=== PATIENT | male | born 1950 | race American Indian/Alaskan Native ===

== ENCOUNTER 2016-10-03 16:23 | Inpatient (IN) | payer OTHER ==
[2016-10-03] MEDS ORDERED: SODIUM CHLORIDE 1,000 ML IV SCH (16:45)
[2016-10-03 16:53] LABS: BASOPHIL 0.5 % (0-2.0); EOSINOPHIL 2.1 % (0-4.5); MCH 27.4 pg (25.7-33.7); MEAN CELL VOLUME 80.6 fl (80-96); MEAN PLT VOLUME 9.1 fl (7.5-11.1); PLATELET COUNT 258 K/MM3 (134-434); RDW 14.5 % (11.9-15.9); WHITE BLOOD COUNT 8.4 K/mm3 (4.0-10.0)
--- NOTE | 2016-10-03 16:53 | PDOC ---
History of Present Illness - History of Present Illness Initial Comments: 10/03/16 17:01 Patient is a 66 year old male with significant medical hx of past CVA (1996), bilateral carotid stenosis, HTN, HLD, and DM type II who is presenting to the ED with three days of left sided weakness, slurred speech and facial droop. The patient states that his symptoms began three days ago after he left the house in the morning. He complains of garbled speech with some mild weakness to his left upper and lower extremities. The patient states that his symptoms are similar to his last CVA. The patient takes baba ASA chronically; his last dose taken today. Patient is compliant with his medications. Social Hx: Current every day smoker. PMD: Geoff Camacho MD <Ariella Abad - Last Filed: 10/03/16 17:41> - General History Source: Patient, Family, Old Records Exam Limitations: No Limitations <Gage Hayes - Last Filed: 10/03/16 18:07> - General Chief Complaint: CVA/TIA Stated Complaint: CVA/TIA Time Seen by Provider: 10/03/16 16:30 Past History <Ariella Abad - Last Filed: 10/03/16 17:41> - Past Medical History CVA: Yes (1996 with mild left weakness) Diabetes: Yes (Type 2) HTN: Yes Hypercholesterolemia: Yes Other medical history: bilat carotid stenosis - Psycho/Social/Smoking Cessation Hx Anxiety: No Suicidal Ideation: No Smoking History: Current every day smoker Have you smoked in the past 12 months: Yes Number of Cigarettes Smoked Daily: 20 Information on smoking cessation initiated: Yes 'Breaking Loose' booklet given: 10/03/16 Hx Alcohol Use: No Drug/Substance Use Hx: No Substance Use Type: None <Gage Hayes - Last Filed: 10/03/16 18:07> - Past Medical History Allergies/Adverse Reactions: Allergies Allergy/AdvReac Type Severity Reaction Status Date / Time No Known Allergies Allergy Verified 10/03/16 16:31 Home Medications: Ambulatory Orders Aspirin [Maria Alejandra Chewable] 81 mg PO DAILY 10/03/16 Atorvastatin Ca [Lipitor] 40 mg PO HS 10/03/16 Fenofibrate Nanocrystallized [Fenofibrate] 145 mg PO HS 10/03/16 Losartan Potassium 50 mg PO DAILY 10/03/16 Metformin HCl [Glucophage] 1,000 mg PO BID 10/03/16 Metoprolol Succinate [Toprol Xl -] 25 mg PO DAILY 10/03/16 Nifedipine ER [Procardia Xl -] 30 mg PO DAILY 10/03/16 Review of Systems - Review of Systems Comments:: 10/03/16 17:02 GENERAL/CONSTITUTIONAL: No fever or chills. No weakness. HEAD, EYES, EARS, NOSE AND THROAT: No change in vision. No ear pain or discharge. No sore throat. CARDIOVASCULAR: No chest pain or shortness of breath. RESPIRATORY: No cough, wheezing, or hemoptysis. GASTROINTESTINAL: No nausea, vomiting, diarrhea or constipation. GENITOURINARY: No dysuria, frequency, or change in urination. MUSCULOSKELETAL: No joint or muscle swelling or pain. No neck or back pain. SKIN: No rash NEUROLOGIC: Slurred speech, left sided weakness. No headache, vertigo, or loss of consciousness. <Ariella Abad - Last Filed: 10/03/16 17:41> *Physical Exam - Vital Signs Last Vital Signs Temp Pulse Resp BP Pulse Ox 97.3 F L 73 18 171/101 100 10/03/16 16:31 10/03/16 16:31 10/03/16 16:31 10/03/16 16:31 10/03/16 16:38 - Physical Exam Comments: 10/03/16 17:02 GENERAL: Awake, alert, and fully oriented, in no acute distress HEAD: No signs of trauma EYES: PERRLA, EOMI, sclera anicteric, conjunctiva clear ENT: Auricles normal inspection, hearing grossly normal, nares patent, oropharynx clear without exudates. Moist mucosa NECK: Normal ROM, supple, no lymphadenopathy, JVD, or masses LUNGS: Breath sounds equal, clear to auscultation bilaterally. No wheezes, and no crackles HEART: Regular rate and rhythm, normal S1 and S2, no murmurs, rubs or gallops ABDOMEN: Soft, nontender, normoactive bowel sounds. No guarding, no rebound. No masses EXTREMITIES: Normal range of motion, no edema. No clubbing or cyanosis. No cords, erythema, or tenderness SKIN: Warm, Dry, normal turgor, no rashes or lesions noted. ENDOCRINE: No increased thirst. No abnormal weight change. HEMATOLOGIC/LYMPHATIC: No anemia, easy bleeding, or history of blood clots. ALLERGIC/IMMUNOLOGIC: No hives or skin allergy. <Ariella Abad - Last Filed: 10/03/16 17:41> - Vital Signs Last Vital Signs Temp Pulse Resp BP Pulse Ox 97.3 F L 73 18 171/101 100 10/03/16 16:31 10/03/16 16:31 10/03/16 16:31 10/03/16 16:31 10/03/16 16:38 - Physical Exam Comments: 10/03/16 16:47 NEURO: Left sided facial droop. +mild dysarthria. No tongue deviation 5/5 strength upper and lower extremities (though pt reports very subtled left upper and lower extremity weakness) No decreased sensation in extremities. No dysmetria. No abnormalities in heel to stone. <Gage Hayes - Last Filed: 10/03/16 18:07> NIH Stroke Scale - Last Known Well Date/Time & Onset Date Last Known Well: 09/30/16 - Initial Evaluation Level of consciousness: Alert Ask patient the month and their age: Answers both correctly Ask patient to open & close eyes; make fist and let go: Obeys both correctly Best gaze (horizontal eye movement): Normal Visual field testing: No visual field loss Facial paresis (Show teeth/raise eyebrows/close eyes tight): Partial paralysis ( total or near paralysis of lower face) Motor Function: Left Arm: Normal Motor Function: Right Arm: Normal (extends arm 90 (or 45) degrees for 10 seconds without drift Motor Function: Left Leg: Normal (extends leg 30 degrees for 5 seconds without drift) Motor Function: Right Leg: Normal (extends leg 30 degrees for 5 seconds without drift) Limb Ataxia: No ataxia Sensory(Use pinprick test arms,legs,trunk,face/side to side): Mild to moderate decrease in sensation Best language (Describe picture, name items, read sentences): No Aphasia Dysarthria (read several words): Mild to moderate slurring of words Extinction and Inattention: No abnormality - Total Score NIH Stroke Scale Score: 4 <Gage Hayes - Last Filed: 10/03/16 18:07> tPA Exclusion Checklist 0-3hr - Time Elapsed Date last known well: 09/30/16 - Thrombolytic Therapy Candidate Is the patient eligible for Thrombolytic Therapy?: No - Ineligibility reason(s) Reasons No tPA given: Outside of window - delayed arrival, See reason(s) noted above <Gage Hayes - Last Filed: 10/03/16 18:07> Heart Score/ECG Review #1 ECG reviewed & interpreted by me at: 16:35 10/03/16 16:46 NSR 76, incomplete RBBB, J point elevation V1-V3, no std/damaris, QTC 438 msec <Gage Hayes - Last Filed: 10/03/16 18:07> Critical Care Time/MDM Note - Medical Decision Making Note: 10/03/16 16:47 A portion of this note was written by my scribe, under my supervision. Vital Signs Temp Pulse Resp BP Pulse Ox 97.3 F L 73 18 171/101 100 10/03/16 16:31 03 16:31 10/03/16 16:31 10/03/16 16:31 10/03/16 16:38 66 year old male with past medical history of HTN, DM, HLD, CAD, prior stroke, bilateral carotid stenosis (reportedly 65% stenosis on R side, under evaluation by DR. Jordan Cherry) presents with left sided facial numbness, LUE, LUE (mild weakness) x 3 days. The patient noted 3 days ago that he was having left sided symptoms. Had some mild dysarthria. Denies chest pain, shortness of breath. Denies recent illnesses. Took two baby aspirin today. The patient clinically appears to have a stroke. He is outside the window given 3 days ago, and is ineligible for TPA. Will perform head CT and give aspirin and admit patient to the hospital for further evaluation. He will likely need a repeat carotid dopplers and will need a consultation by Dr. Cherry for potential intervention. 10/03/16 17:[address] reviewed. Subacute right frontal stroke. Pt had already take 2 baby aspirins. Will give him 2 more baby aspirins. CBC, BMP 10/03/16 16:37 10/03/16 16:37 CMP Sodium 140 mmol/L (136-145) 10/03/16 16:37 Potassium 3.8 mmol/L (3.5-5.1) 10/03/16 16:37 Chloride 104 mmol/L (98-107) 10/03/16 16:37 Carbon Dioxide 29 mmol/L (21-32) 10/03/16 16:37 Anion Gap 7 (8-16) L 10/03/16 16:37 BUN 9 mg/dL (7-18) 10/03/16 16:37 Creatinine 0.8 mg/dL (0.7-1.3) 10/03/16 16:37 Creat Clearance w eGFR > 60 (>60) 10/03/16 16:37 Random Glucose 153 mg/dL (74-106) H 10/03/16 16:37 Calcium 9.9 mg/dL (8.5-10.1) 10/03/16 16:37 Total Bilirubin 0.4 mg/dL (0.2-1.0) 10/03/16 16:37 AST 17 U/L (15-37) 10/03/16 16:37 ALT 40 U/L (12-78) 10/03/16 16:37 Alkaline Phosphatase 100 U/L (45-117) 10/03/16 16:37 Creatine Kinase 45 IU/L (39-308) 10/03/16 16:37 Troponin I < 0.02 ng/ml (0.00-0.05) 10/03/16 16:37 Total Protein 7.1 g/dl (6.4-8.2) 10/03/16 16:37 Albumin 3.6 g/dl (3.4-5.0) 10/03/16 16:37 Triglycerides 95 mg/dL (35-160) 10/03/16 16:37 Cholesterol 154 mg/dL (50-200) 10/03/16 16:37 Total LDL Cholesterol 94 mg/dL (5-100) 10/03/16 16:37 HDL Cholesterol 46 mg/dL (40-60) 10/03/16 16:37 Labs reviewed. Case discussed with DR. Welch (neurology). She recommends adding 150 mg plavix in addition. Will admit to stroke tele service. 10/03/16 18:[address] Morris. Agrees to admit under Dr. Camacho in stroke tele. <Gage Hayes - Last Filed: 10/03/16 18:07> Discharge Disposition <Ariella Abad - Last Filed: 10/03/16 17:41> - Discharge Dispostion Admit: Yes <Gage Hayes - Last Filed: 10/03/16 18:07> - Diagnosis Cerebrovascular accident (CVA) Qualifiers: CVA mechanism: unspecified Qualified Code(s): I63.9 - Cerebral infarction, unspecified - Discharge Dispostion Condition at time of disposition: Stable - Referrals Referrals: Geoff Camacho MD [Primary Care Provider] - *DC/Admit/Observation/Transfer <Ariella Abad - Last Filed: 10/03/16 17:41> <Gage Hayes - Last Filed: 10/03/16 18:07> Diagnosis at time of Disposition: Cerebrovascular accident (CVA) Qualifiers: CVA mechanism: unspecified Qualified Code(s): I63.9 - Cerebral infarction, unspecified - Referrals Referrals: Geoff Camacho MD [Primary Care Provider] - Attestations - Attestations 10/03/16 17:04 Documentation prepared by Ariella Abad, acting as medical superintendent for Gage Hayes MD. <Ariella Abad - Last Filed: 10/03/16 17:41> ED Treatment Course - LABORATORY CBC & Chemistry Diagram: 10/03/16 16:37 10/03/16 16:37 - ADDITIONAL ORDERS Additional order review: Laboratory Results 10/03/16 10/03/16 16:37 16:37 INR 1.10 Sodium 140 Potassium 3.8 Chloride 104 Carbon Dioxide 29 Anion Gap 7 L BUN 9 Creatinine 0.8 Creat Clearance w eGFR > 60 Random Glucose 153 H Calcium 9.9 Total Bilirubin 0.4 AST 17 ALT 40 Alkaline Phosphatase 100 Creatine Kinase 45 Troponin I < 0.02 Total Protein 7.1 Albumin 3.6 Triglycerides 95 Cholesterol 154 Total LDL Cholesterol 94 HDL Cholesterol 46 10/03/16 16:37 RBC 5.88 H MCV 80.6 MCHC 34.0 RDW 14.5 MPV 9.1 Neutrophils % 60.0 Lymphocytes % 30.9 Monocytes % 6.5 Eosinophils % 2.1 Basophils % 0.5 - RADIOLOGY Radiograph Interpretation: 10/03/16 17:[address] Impression: No intracranial hemorrhage is seen. A 0.5 cm right frontal subcortical infarct is noted which is probably subacute or chronic. Punctate chronic bilateral basal ganglia infarcts are seen. 0.5 cm chronic right temporal periventricular infarct. Reported By: Alirio Cole MD - Medications Given in the ED: ED Medications Discontinued Medications Generic Name Dose Route Start Last Admin Trade Name Bryn PRN Reason Stop Dose Admin Aspirin 162 mg 10/03/16 17:18 10/03/16 17:21 Asa - PO 10/03/16 17:19 162 mg ONCE ONE Administration Clopidogrel Bisulfate 150 mg 10/03/16 17:27 10/03/16 17:34 Plavix - PO 10/03/16 17:28 150 mg ONCE ONE Administration Sodium Chloride 1,000 mls @ 42 mls/hr 10/03/16 16:45 10/03/16 17:16 Normal Saline - IV 42 mls/hr ASDIR SAGAR Administration <Ariella Abad - Last Filed: 10/03/16 17:41> - LABORATORY CBC & Chemistry Diagram: 10/03/16 16:37 10/03/16 16:37 <Gage Hayes - Last Filed: 10/03/16 18:07>
[2016-10-03 17:08] LABS: INR 1.1 (0.82-1.09); PROTHROMBIN TIME (PATIENT) 12.1 SEC (9.98-11.88)
[2016-10-03] MEDS ORDERED: ASPIRIN 81 MG CHEWABLE TABLETS PO ONE (17:18)
[2016-10-03 17:19] LABS: ALBUMIN 3.6 g/dl (3.4-5.0); ANION GAP 7 (8-16); BILIRUBIN,TOTAL 0.4 mg/dL (0.2-1.0); CALCIUM 9.9 mg/dL (8.5-10.1); CHOLESTEROL 154 mg/dL (50-200); CO2 29 mmol/L (21-32); CREATININE 0.8 mg/dL (0.7-1.3); GLUCOSE,RANDOM 153 mg/dL (74-106); LDL CHOLESTEROL (ONLY SJRH) 94 mg/dL (5-100); SGOT/AST 17 U/L (15-37); SGPT/ALT 40 U/L (12-78); TOT PROT 7.1 g/dl (6.4-8.2)
[2016-10-03 17:20] LABS: ALK PHOS 100 U/L (45-117); TROPONIN I < 0.02 ng/ml (0.00-0.05)
[2016-10-03] MEDS ORDERED: CLOPIDOGREL BISULFATE 75 MG TABLET (FP) PO ONE (17:27)
[2016-10-03] MEDS ORDERED: CLOPIDOGREL BISULFATE 75 MG TABLET (FP) ONE (17:31)
[2016-10-03] MEDS ORDERED: ASPIRIN 81 MG CHEWABLE TABLETS ONE (17:31)
[2016-10-03] MEDS: INSULIN SLIDING SCALE (NOVOLOG) 1 VIAL SQ SCH (21:01)
[2016-10-03] MEDS: FENOFIBRIC ACID 135 MG CAP PO SCH (21:12)
[2016-10-03] MEDS: NIFEdipine E.R. 30 MG TABLET (FP) PO SCH (21:14)
[2016-10-03] MEDS: NICOTINE 21 MG/24 HOURS TOPICAL PATCH TD SCH (21:45)
[2016-10-03 21:56] LABS: TROPONIN I < 0.02 ng/ml (0.00-0.05)
[2016-10-03] MEDS ORDERED: ATORVASTATIN CA 40 MG TABLET (FP) PO SCH (22:00)
[2016-10-03] MEDS ORDERED: PATIENT'S OWN MEDICATION (NON-FORMULARY) (Fenofibrate Nanocrystallized [Fenofibrate] 145 M PO SCH (22:00)
[2016-10-03 23:13] VITALS: BMI 24.4
[2016-10-04 03:22] LABS: URINE APPEARANCE CLEAR; URINE BILIRUBIN NEGATIVE (NEGATIVE); URINE BLOOD NEGATIVE (NEGATIVE); URINE COLOR LTYELLOW; URINE GLUCOSE (UA) NEGATIVE (NEGATIVE); URINE KETONE NEGATIVE (NEGATIVE); URINE LEUK ESTERASE NEGATIVE (NEGATIVE); URINE NITRITE NEGATIVE (NEGATIVE); URINE PROTEIN NEGATIVE (NEGATIVE); URINE UROBILINOGEN NEGATIVE E.U./dl (0.2-1.0)
[2016-10-04 04:24] LABS: TROPONIN I < 0.02 ng/ml (0.00-0.05)
[2016-10-04] MEDS ORDERED: ACETAMINOPHEN 325 MG TABLET (FP) PO PRN (05:51)
[2016-10-04] MEDS: INSULIN SLIDING SCALE (NOVOLOG) 1 VIAL SQ SCH ×4 (06:03→22:16)
[2016-10-04] MEDS: metFORMIN HCL 500 MG TABLET (FP) PO SCH ×2 (06:04→15:55)
[2016-10-04 08:03] LABS: BASOPHIL 0.6 % (0-2.0); EOSINOPHIL 2.1 % (0-4.5); MCH 27.3 pg (25.7-33.7); MCHC 33.4 g/dl (32.0-35.9); MEAN CELL VOLUME 81.7 fl (80-96); MEAN PLT VOLUME 9.2 fl (7.5-11.1); NEUTROPHILS 65.7 % (42.8-82.8); PLATELET COUNT 209 K/MM3 (134-434); RDW 14.6 % (11.9-15.9); WHITE BLOOD COUNT 8.3 K/mm3 (4.0-10.0)
[2016-10-04 08:49] LABS: SGPT/ALT 50 U/L (12-78)
[2016-10-04 08:51] LABS: ALBUMIN 3.5 g/dl (3.4-5.0); ANION GAP 10 (8-16); CALCIUM 9.3 mg/dL (8.5-10.1); CO2 27 mmol/L (21-32); CREATININE 0.7 mg/dL (0.7-1.3); GLUCOSE,RANDOM 158 mg/dL (74-106); SGOT/AST 28 U/L (15-37)
[2016-10-04 09:02] LABS: ALK PHOS 94 U/L (45-117); BILIRUBIN,TOTAL 0.5 mg/dL (0.2-1.0); THYROID STIMULATING HORMONE 2.13 uIU/ml (0.358-3.74); TOT PROT 6.6 g/dl (6.4-8.2)
--- NOTE | 2016-10-04 09:41 | EKG ---
Test Reason : Blood Pressure : / mmHG Vent. Rate : 076 BPM Atrial Rate : 076 BPM P-R Int : 156 ms QRS Dur : 100 ms QT Int : 390 ms P-R-T Axes : 064 020 052 degrees QTc Int : 438 ms NORMAL SINUS RHYTHM POSSIBLE LEFT ATRIAL ENLARGEMENT INCOMPLETE RIGHT BUNDLE BRANCH BLOCK NO PREVIOUS ECGS AVAILABLE Confirmed by KIZZY BROCK MD ([id number]) on 10/04/2016 9:41:20 AM Referred By: Confirmed By:KIZZY BROCK MD
[2016-10-04] MEDS ORDERED: NIFEdipine E.R. 30 MG TABLET (FP) PO SCH (10:00)
[2016-10-04] MEDS ORDERED: LOSARTAN POTASSIUM 50 MG TABLET (FP) PO SCH ×2 (10:00→15:25)
[2016-10-04] MEDS ORDERED: METOPROLOL SUCCINATE 25 MG TAB.SR.24H (FP) PO SCH (10:00)
[2016-10-04] MEDS ORDERED: ASPIRIN 81 MG CHEWABLE TABLETS PO SCH (10:00)
--- NOTE | 2016-10-04 10:18 | CONSULT ---
Admitting History and Physical - Primary Care Physician PCP: Geoff Camacho - Admission History of Present Illness: Per EMR: "Initial Comments: 10/03/16 17:01 Patient is a 66 year old male with significant medical hx of past CVA (1996), bilateral carotid stenosis, HTN, HLD, and DM type II who is presenting to the ED with three days of left sided weakness, slurred speech and facial droop. The patient states that his symptoms began three days ago after he left the house in the morning. He complains of garbled speech with some mild weakness to his left upper and lower extremities. The patient states that his symptoms are similar to his last CVA. The patient takes baba ASA chronically; his last dose taken today. Patient is compliant with his medications. " Passed dysphagia screen x 2. Reg diet/thin liquid ordered. 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 Other Social History: h/o CVA x 20 yrs ago, with left [id number] with excellent recovery with rehabilitation History - Admission Reason For Visit: CEREBRAL VASCULAR ACCIDENT - Diagnostics X-ray: Report Reviewed CT Scan: Report Reviewed (right frontal subcortical infarct) MRI: Report Reviewed - General Mental Status: Alert and Oriented, Awake and Alert, Able to Follow Commands Attention: Intact Ability to Follow Directions: Excellent Head/Neck Control: WFL - Hearing Hearing: Functional Hearing: Impaired, Both Hearing Aide: No (reports decreased hearing) Speech Evaluation - Communication Primary Language: CHINESE Secondary Language: HAITIAN (fluent) Communication: Yes: Dysarthria (Mild) - Speech Production Dysarthria: Yes: Flaccid Able to Make Needs Known: Yes: WNL Intelligibility: Yes: Mildly Impaired - Speech Characteristics Voice Loudness: Normal Voice Pitch: Yes: Normal Voice Phonatory-based Quality: Yes: Normal Speech Pattern: Impaired Speech Clarity: < 100% Nasal Resonance: Normal Articulation: Yes: Imprecise Rate of Speech: Too Slow - Language/Auditory Comprehension Follows: Yes: 2 Stage Simple Commands Observation: Able to respond to yes/no queries: Yes, Yes/No Confusion: No, Comprehends Conversational Speech: Yes, Benefits from Increased Volume of Speech : Yes - Language/Verbal Expression Able to Respond to Simple Queries: Yes: WNL Able to Communicate Wants and Needs: Yes: WNL Functional Communication Status: Yes: WNL - Memory/Perception retirement Memory: Yes: WNL Short Term Memory: Yes: WNL - Swallow Evaluation/Bedside Assessment Current Nutritional Intake: Regular, Thin Liquids Oral Secretions: Yes: WFL Dentition: Yes: Adequate, Missing Teeth Facial Symmetry at Rest: Facial Droop Left Facial Symmetry on Retraction: Facial Droop Left Sensation: Normal Jaw Position: Closed at Rest Against Resistance Opening: Normal Against Resistance Closing: Normal Pucker Lips: Droops Left Smile: Droops Left Lingual Movement: Symmetric Lingual Speed of Movement: Reduced Lingual Movement Strgth Against Opposition: Reduced Velopharyngeal Movement: Normal Laryngeal Elevation: Impaired Laryngeal Movement: Reduced Excursion, Labored,delay initiation, Reduced Velocity Rate of Intake: WFL Bolus Size: WFL Labial Seal: WFL Chewing: WFL Oral Prep Time: WFL A-P Transit: WFL Pocketing: None Timing of Swallow: Delayed Coughing/Throat Clear: No Change in Voice: No Recommendations - Speech Evaluation, Impression/Plan Impression: Right CVA with left sided hemiparesis, left facial, mild flaccid dysarthria with fair (+) to good (-) intelligibilty. Cognition grossly intact. Swallowing is functional, however, laryngeal swallow is mildly reduced in rate of onset, rate of ellevation and depression, and excursion. One instance of brief cough noted. Risk of aspiration and pharyngeal stasis. - Dysphagia Impressions/Plan *Silent aspiration: cannot be R/O at bedside Dysphagia Treatment Plan: Labial Exercises, Swallowing Exercises, Chin Tuck/Down , Safe Rate, OOB for meals, OOB for 1 h. after meals, Other (Pt educated on signs of dysphagia and asked to report any cough, congestion,to nursing/MD.) Recommendations: Modified Barium Swallow (if signs of aspiration reported or observed.) - Recommendations Diet Consistency: Regular Medication Administration: Whole with water Liquids: Thin Liquids
[2016-10-04] MEDS: NICOTINE 21 MG/24 HOURS TOPICAL PATCH TD SCH (10:42)
--- NOTE | 2016-10-04 11:58 | HP ---
Admitting History and Physical - Primary Care Physician PCP: Geoff Camacho - Admission Chief Complaint: ACUTE CVA History of Present Illness: 66 Y/O MALE WELL KNOWN TO OUR SERVICE, HISTORY OF CAROTID ATHEROSCLEROSIS WITH GREATER THAN 70% STENOSIS IN THE PAST YEAR STARTED ON AGGRESSIVE LIPID AND HYPERTENSION CONTROL AT OUR OFFICE. HOWEVER, PATIENT CONTINUES TO SMOKE CIGARETTES APPROX 2 PK A DAY AND HAS NOT SLOWED DOWN . WE HAVE OFFERED SMOKING CESSATION AID WITH PATCHES AND CHANTIX/ZYBAN BUT HAS REFUSED. HERE WITH MS CHANGE AND SLURRED SPEECH. 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 Home Medications - Allergies Allergies/Adverse Reactions: Allergies Allergy/AdvReac Type Severity Reaction Status Date / Time No Known Allergies Allergy Verified 10/03/16 16:31 - Home Medications Home Medications: Ambulatory Orders Aspirin [Maria Alejandra Chewable] 81 mg PO DAILY 10/03/16 Atorvastatin Ca [Lipitor] 40 mg PO HS 10/03/16 Fenofibrate Nanocrystallized [Fenofibrate] 145 mg PO HS 10/03/16 Losartan Potassium 50 mg PO DAILY 10/03/16 Metformin HCl [Glucophage] 1,000 mg PO BID 10/03/16 Metoprolol Succinate [Toprol Xl -] 25 mg PO DAILY 10/03/16 Nifedipine ER [Procardia Xl -] 30 mg PO HS 10/03/16 Review of Systems - Review of Systems Constitutional: reports: Lethargy Eyes: reports: No Symptoms HENT: reports: No Symptoms Neck: reports: No Symptoms Cardiovascular: reports: No Symptoms Respiratory: reports: No Symptoms Gastrointestinal: reports: No Symptoms Genitourinary: reports: No Symptoms Musculoskeletal: reports: Muscle Weakness Integumentary: reports: No Symptoms Endocrine: reports: Other (SLURRED SPEECH) Hematology/Lymphatic: reports: No Symptoms Psychiatric: reports: No Symptoms Physical Examination Vital Signs: Vital Signs Temperature 98.4 F 10/04/16 10:35 Pulse Rate 95 H 10/04/16 10:35 Respiratory Rate 18 03/17/17 10:35 Blood Pressure 155/79 03/17/17 10:35 O2 Sat by Pulse Oximetry (%) 97 10/04/16 10:00 Constitutional: Yes: Mild Distress Eyes: Yes: WNL HENT: Yes: WNL, Other (SLURRED SPEECH RESOLVED) Neck: Yes: WNL Cardiovascular: Yes: WNL Respiratory: Yes: WNL Gastrointestinal: Yes: WNL Renal/: Yes: WNL Musculoskeletal: Yes: WNL Extremities: Yes: WNL Edema: No Peripheral Pulses WNL: Yes Integumentary: Yes: WNL Wound/Incision: Yes: Clean/Dry Neurological: Yes: WNL ...Motor Strength: WNL Psychiatric: Yes: WNL Labs: CBC, BMP 10/04/16 05:35 10/04/16 05:35 Imaging - Results MRI: Report Reviewed Problem List - Problems (1) Cerebrovascular accident (CVA) Assessment/Plan: ACUTE VS SUBACUTE Code(s): I63.9 - CEREBRAL INFARCTION, UNSPECIFIED Qualifiers: CVA mechanism: unspecified Qualified Code(s): I63.9 - Cerebral infarction, unspecified (2) Cigarette smoker Code(s): F17.210 - NICOTINE DEPENDENCE, CIGARETTES, UNCOMPLICATED (3) Lipidemia Code(s): E78.5 - HYPERLIPIDEMIA, UNSPECIFIED Qualifiers: Hyperlipidemia type: mixed hyperlipidemia Qualified Code(s): E78.2 - Mixed hyperlipidemia (4) Essential hypertension Code(s): I10 - ESSENTIAL (PRIMARY) HYPERTENSION (5) Diabetes mellitus Code(s): E11.9 - TYPE 2 DIABETES MELLITUS WITHOUT COMPLICATIONS Qualifiers: Diabetes mellitus complication status: with circulatory complication Assessment/Plan NEUROCHECKS NEUROLOGY AND CARDIOLOGY WORKUP PT EVAL OOB TO CHAIR WITH ASSIST TOBACCO CESSATION BP CONTROL
--- NOTE | 2016-10-04 13:09 | CON.NEURO ---
Consult Consult Specialty:: NEUROLOGY Reason for Consultation:: left side weakness, dysarthria - History of Present Illness History of Present Illness: 66 year old male, RH , heavy smoker ( 2 packs/day) with significant medical hx of past CVA (1996), bilateral carotid stenosis, HTN, HLD, and DM type II , on aspirin daily was admitted yesterday for three days of left sided weakness, slurred speech and facial droop. The patient states that his symptoms began three days ago after he left the house in the morning. He complains of garbled speech with some mild weakness to his left upper and lower extremities. The patient states that his symptoms are similar to his last CVA. The patient takes baba ASA chronically; his last dose taken today. 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 Home Medications - Allergies Allergies/Adverse Reactions: Allergies Allergy/AdvReac Type Severity Reaction Status Date / Time No Known Allergies Allergy Verified 10/03/16 16:31 - Home Medications Home Medications: Ambulatory Orders Aspirin [Maria Alejandra Chewable] 81 mg PO DAILY 10/03/16 Atorvastatin Ca [Lipitor] 40 mg PO HS 10/03/16 Fenofibrate Nanocrystallized [Fenofibrate] 145 mg PO HS 10/03/16 Losartan Potassium 50 mg PO DAILY 10/03/16 Metformin HCl [Glucophage] 1,000 mg PO BID 10/03/16 Metoprolol Succinate [Toprol Xl -] 25 mg PO DAILY 10/03/16 Nifedipine ER [Procardia Xl -] 30 mg PO HS 10/03/16 Review of Systems - Review of Systems Constitutional: reports: No Symptoms Eyes: reports: No Symptoms HENT: reports: No Symptoms Neck: reports: No Symptoms Cardiovascular: reports: No Symptoms Respiratory: reports: No Symptoms Gastrointestinal: reports: No Symptoms Genitourinary: reports: No Symptoms Breasts: reports: No Symptoms Reported Musculoskeletal: reports: No Symptoms Integumentary: reports: No Symptoms Neurological: reports: No Symptoms Endocrine: reports: No Symptoms Hematology/Lymphatic: reports: No Symptoms Psychiatric: reports: No Symptoms Physical Exam-Neuro Vital Signs: Vital Signs Temperature 98.4 F 10/04/16 10:35 Pulse Rate 95 H 10/04/16 10:35 Respiratory Rate 18 10/04/16 10:35 Blood Pressure 155/79 10/04/16 10:35 O2 Sat by Pulse Oximetry (%) 97 10/04/16 10:00 Constitutional: Yes: No Distress, Calm Neck: Yes: Supple, Trachea Midline Cardiovascular: Yes: Regular Rate and Rhythm, S1, S2 Respiratory: Yes: Regular, CTA Bilaterally Gastrointestinal: Yes: Normal Bowel Sounds, Soft Renal/: Yes: WNL Musculoskeletal: Yes: WNL Edema: No Psychiatric: Yes: Alert, Oriented Labs: CBC, BMP 10/04/16 05:35 10/04/16 05:35 INR, PTT INR 1.10 (0.82-1.09) 10/03/16 16:37 - Neuro Exam Level Of Consciousness: Yes: Oriented to Person, Oriented to Place, Oriented to Time Eyes: Yes: PERRLA Speech: Slurred Dominant Hand: Right Cranial Nerves II-XII Intact: No (right facial droop) Gag: Present DTR's: 1+ Left Bicep, 1+ Right Bicep, 1+ Left Tricep, 1+ Right Tricep, 1+ Left Brachioradialis, 1+ Right Brachioradialis, 1+ Left Achilles, 1+ Right Achilles Babinski: Absent Response to light touch: Normal Response to pain prick: Normal Response to temperature: Normal Response to vibration: Normal Coordination: Normal: Finger to Nose (LUE ataxia) Motor Strength: 5/5: Left Arm, Right Arm, Left Leg, Right Leg Gait: Deferred NIH Stroke Scale - Last Known Well Date/Time & Onset Symptom Onset Date: 09/30/16 Symptom Onset Time: 09:00 Date Last Known Well: 09/29/16 Time Last Known Well: 17:00 - Initial Evaluation Level of consciousness: Alert Ask patient the month & their age: Answers Both Correctly Ask Patient to open & close eyes; make fist and let go.: Obeys Both Correctly Best gaze (horizontal eye movement): Normal Visual Field Testing: No Visual Loss Facial Palsy(Show teeth or raise eyebrows & close eyes: Minor Paralysis ( Flattened nasolabial fold, asymmetry on smiling). Motor Function - Left Arm: No Drift;extends limb 90 (or siting 45) degress & hold full 10 seconds Motor Function - Right Arm: No Drift;extends limb 90 (or siting 45) degress & hold full 10 seconds Motor Function - Left Leg: No Drift; leg holds 30 degree position for full 5 seconds. Motor Function - Right Leg: No Drift; leg holds 30 degree position for full 5 seconds. Limb Ataxia: Present in one limb Sensory (arms, legs, trunk, face): Normal; no sensory loss Best Language: No Aphasia; normal Dysarthria/Articulation: Mild to moderate dysarthria;slurs some words/ understood w/difficulty Extinction and Inattention: No abnormality - Total Score NIH Stroke Scale Score: 3 Imaging - Results Cat Scan: Report Reviewed, Image Reviewed Ultrasound: Report Reviewed, Image Reviewed MRI: Report Reviewed, Image Reviewed Problem List - Problems (1) Cerebrovascular accident (CVA) Code(s): I63.9 - CEREBRAL INFARCTION, UNSPECIFIED Qualifiers: CVA mechanism: unspecified Qualified Code(s): I63.9 - Cerebral infarction, unspecified (2) 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 The patient states that his symptoms began three days ago after he left the house in the morning. He complains of garbled speech with some mild weakness to his left upper and lower extremities. The patient states that his symptoms are similar to his last CVA. The patient takes baba ASA chronically; his last dose taken today. LSN Friday night. The patient is not a candidate for ivtpa as he presented three days after the symptoms started. He is out of the window for ivtpa. MRI brain shows small lacunar right basal ganglia stroke. sinusitis frontal, maxillary, ethmoidal on MRI brain. Impression: subacute ischemic lacunar stroke on aspirin. seems small vessel stroke . NIHS is 3p 1p dysarthria, 1p right facial droop, 1p LUE ataxia. Plan: - add Plavix 75mg. po daily to the aspirin 325mg. po daily. Gave yesterday 150mg. Plavix po in ED. increase statin to 80mg. po daily, keep blood pressure< 130mmHg. - control diabetes - smoke cessation counseling- patient is a heavy smoker 2packs per day- nicotine patch q24h. 21mg. - stroke work up : echocardiogram, CTA neck, lipids, HbA1C, TSH, Holter 48h. - PT/OT/ST - DVT prophylaxis. - start augmentin 875/125mg. po bid for seven days for sinusitis seen on MRI brain. Thank you for this consult . will follow.
--- NOTE | 2016-10-04 15:12 | CONSULT ---
Consult Consult Specialty:: Cardiology Reason for Consultation:: Dr Camacho - History of Present Illness Chief Complaint: Left-sided weakness, left facial droop and slurred speech. History of Present Illness: 66 yo male, daily smoker, with hx HTN, HLD, DM X 3 yrs, past CVA (1996) -> remaining mild left sided weakness, bilateral carotid stenosis (50-69% on right and 1-49% on left in 05/05), here with three days of left sided weakness, slurred speech and facial droop. The patient states that his symptoms began three days prior to presentation -. first numbness/tingling in left fingers -. worsened. He thought he would wait until next week to go to the doctors. However, his family made him He denies hx of CAD, CHF, CP syndrome. He denies CP< SOB, palpitations or dizziness. MRI showed sub-acute right lacunar infarct in wagner radiata and old right pontine CVA He now feels better, but droop persists His family (and pt admits) says he doesn't like anything healthy. 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 Home Medications - Allergies Allergies/Adverse Reactions: Allergies Allergy/AdvReac Type Severity Reaction Status Date / Time No Known Allergies Allergy Verified 10/03/16 16:31 - Home Medications Home Medications: Ambulatory Orders Aspirin [Maria Alejandra Chewable] 81 mg PO DAILY 10/03/16 Atorvastatin Ca [Lipitor] 40 mg PO HS 10/03/16 Fenofibrate Nanocrystallized [Fenofibrate] 145 mg PO HS 10/03/16 Losartan Potassium 50 mg PO DAILY 10/03/16 Metformin HCl [Glucophage] 1,000 mg PO BID 10/03/16 Metoprolol Succinate [Toprol Xl -] 25 mg PO DAILY 10/03/16 Nifedipine ER [Procardia Xl -] 30 mg PO HS 10/03/16 Family Disease History - Family Disease History Family History: Denies (premature CAD) Other Family History: has 3 daughters, one son, 5 grandchildren. Is one of 9 children Review of Systems - Review of Systems Constitutional: reports: No Symptoms Eyes: reports: No Symptoms HENT: reports: No Symptoms Neck: reports: No Symptoms Cardiovascular: reports: No Symptoms Respiratory: reports: No Symptoms Gastrointestinal: reports: No Symptoms Genitourinary: reports: No Symptoms Musculoskeletal: reports: Muscle Weakness (on left, mild) Neurological: reports: Change in Speech, Numbness, Weakness (on left), Other ( left droop) Hematology/Lymphatic: reports: No Symptoms Psychiatric: reports: No Symptoms Physical Exam Vital Signs: Vital Signs Temperature 98.5 F 10/04/16 14:00 Pulse Rate 85 10/04/16 14:00 Respiratory Rate 20 10/04/16 14:00 Blood Pressure 153/79 10/04/16 14:00 O2 Sat by Pulse Oximetry (%) 97 10/04/16 10:00 Constitutional: Yes: No Distress Eyes: Yes: Conjunctiva Clear HENT: Yes: Atraumatic Neck: Yes: Supple Cardiovascular: Yes: Regular Rate and Rhythm. No: Murmur Respiratory: Yes: CTA Bilaterally Gastrointestinal: Yes: Normal Bowel Sounds, Soft. No: Tenderness Extremities: Yes: Other (warm) Edema: No Peripheral Pulses WNL: Yes (but diminished) Neurological: Yes: Alert, Oriented Psychiatric: Yes: Alert, Oriented Labs: CBC, BMP 10/04/16 05:35 10/04/16 05:35 Imaging - Results Chest X-ray: Report Reviewed, Image Reviewed EKG: Report Reviewed, Image Reviewed (SR , LAE. Inc RBBB, NSST-T cahnges ( repeat is unchanged)) Other: Other (tele -. SR , PVCs Echo (10/04/16) -. nl LV size with EF 65%, grade 1 DD, Milc conc LVH, trace MR, mild TR) Assessment/Plan 66 yo male with the above history, here with left weakness/droop/slurred speech -> found with subacute right lacunar wagner radiata infarct on MRI Neck MRA showed non-obstructive lesion on left and about 45% oin right prox ICA. Pt with known carotid disease LDL suboptimal at 94 No evidence of ACS or CHF No arrhythmia on tele, except fro PVCs Echo -. normal EF, mild DD, and insignificant valvular dz BP was 171/103 on admission -. better now but still suboptiomal (per neuro, ok to drop to < 130) TSH nl DM uncontrolled -. A1C 8.1 Rec: Increase toprol to 50/d and losartan to 100/d Cont nidfedipine Follow BP and adjust meds further prn Increase atorvastatin to 80/d as recommended by neuro DM management per Dr Camacho I had a long discussion with pt in presence of family (, 3 daughters, sister , etc) about complete smoking cessation, diet and exercise. He seems committed at this time Thanks! We'll follow!
[2016-10-04] MEDS ORDERED: ATORVASTATIN CA 80 MG TABLET (FP) PO SCH (15:25)
[2016-10-04] MEDS ORDERED: METOPROLOL SUCCINATE 25 MG TAB.SR.24H (FP) PO ONE (15:26)
[2016-10-04] MEDS ORDERED: METOPROLOL SUCCINATE 50 MG TAB.SR.24H (FP) PO SCH (15:26)
[2016-10-04] MEDS ORDERED: LOSARTAN POTASSIUM 50 MG TABLET (FP) PO ONE (15:27)
--- NOTE | 2016-10-04 16:52 | PN ---
Progress Note (short form) - Note Progress Note: Vascular Surgery Pt seen and examined with family at bedside. Left sided weakness much better. Good strength, FROM x 4 CTA reviewed -- 45% stenosis right ICA Medical management for stroke. No need for surgery Advised smoking cessation. Jordan tracy DO
[2016-10-04] MEDS: AMOX TR/POT CLAV 875MG/125MG TABLETS (FP) PO SCH (17:22)
[2016-10-04] MEDS: FENOFIBRIC ACID 135 MG CAP PO SCH (22:19)
[2016-10-04] MEDS: NIFEdipine E.R. 30 MG TABLET (FP) PO SCH (22:20)
[2016-10-05 06:09] VITALS: BP 145/64; PULSE 70; TEMP 97.9
[2016-10-05] MEDS: INSULIN SLIDING SCALE (NOVOLOG) 1 VIAL SQ SCH ×2 (06:14→12:08)
[2016-10-05] MEDS: metFORMIN HCL 500 MG TABLET (FP) PO SCH (06:14)
[2016-10-05] MEDS ORDERED: sitaGLIPtin PHOSPHATE 25 MG TABLET (FP) PO SCH (07:00)
[2016-10-05] MEDS: NICOTINE 21 MG/24 HOURS TOPICAL PATCH TD SCH (09:04)
[2016-10-05] MEDS: AMOX TR/POT CLAV 875MG/125MG TABLETS (FP) PO SCH (09:05)
--- NOTE | 2016-10-05 10:01 | DS ---
Physical Examination Vital Signs: Vital Signs Temperature 97.9 F 10/05/16 06:08 Pulse Rate 70 10/05/16 06:08 Respiratory Rate 16 10/05/16 06:08 Blood Pressure 145/64 10/05/16 06:08 O2 Sat by Pulse Oximetry (%) 97 10/04/16 21:00 Findings/Remarks: FEELS BETTER WANTS TO GO HOME Cardiovascular: Yes: Regular Rate and Rhythm Respiratory: Yes: Regular, CTA Bilaterally Gastrointestinal: Yes: Normal Bowel Sounds, Soft Edema: No Neurological: Yes: Alert, Oriented, Weakness (MINIMAL LEFT), Other (GAIT STEADY) Labs: CBC, BMP 10/04/16 05:35 10/04/16 05:35 Discharge Summary Reason For Visit: CEREBRAL VASCULAR ACCIDENT Current Active Problems Cerebrovascular accident (CVA) (Acute) Cigarette smoker (Acute) Diabetes mellitus (Acute) 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 The patient states that his symptoms began three days prior to presentation -. first numbness/tingling in left fingers -. worsened. He thought he would wait until next week to go to the doctors. However, his family made him He denies hx of CAD, CHF, CP syndrome. He denies CP< SOB, palpitations or dizziness. MRI showed sub-acute right lacunar infarct in wagner radiata and old right pontine CVA He now feels better, but droop persists His family (and pt admits) says he doesn't like anything healthy. 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) Cardio/Vascular: Yes: HTN, Hyperlipdemia Endocrine: Yes: Diabetes Mellitus (for 3 yrs) - Problems (1) Cerebrovascular accident (CVA) Assessment/Plan: ACUTE VS SUBACUTE ON B-LAMBERT/STATIN/ASA/PLAVIX MONITOR BP SMOKING CESSATION HOLTER OUPATIENT IF OK WITH CARDIO AND NEURO Code(s): I63.9 - CEREBRAL INFARCTION, UNSPECIFIED Qualifiers: CVA mechanism: unspecified Qualified Code(s): I63.9 - Cerebral infarction, unspecified (2) Cigarette smoker SMOKING CESSATION D/W PT Code(s): F17.210 - NICOTINE DEPENDENCE, CIGARETTES, UNCOMPLICATED (3) Lipidemia ON LIPITOR Code(s): E78.5 - HYPERLIPIDEMIA, UNSPECIFIED Qualifiers: Hyperlipidemia type: mixed hyperlipidemia Qualified Code(s): E78.2 - Mixed hyperlipidemia (4) Essential hypertension MEDS ADJUSTED--MONITOR ON CURRENT DOSE Code(s): I10 - ESSENTIAL (PRIMARY) HYPERTENSION (5) Diabetes mellitus ON METFORMIN AND JANUVIA Code(s): E11.9 - TYPE 2 DIABETES MELLITUS WITHOUT COMPLICATIONS Qualifiers: Diabetes mellitus complication status: with circulatory complication Condition: Stable - Instructions Referrals: Geoff Camacho MD [Primary Care Provider] - Disposition: VNS/HOME HEALTH CARE - Home Medications Comprehensive Discharge Medication List: Ambulatory Orders Current Medications Acetaminophen (Tylenol -) 650 mg PO Q6H PRN PRN Reason: FEVER OR PAIN Last Admin: 10/04/16 06:04 Dose: 650 mg Amoxicillin/Clavulanate Potassium (Augmentin - 875mg Tablet) 1 tab PO BID@0800, 1730 [facility] Last Admin: 10/05/16 09:05 Dose: 1 tab Aspirin (Ecotrin -) 325 mg PO DAILY [facility] Last Admin: 10/05/16 10:55 Dose: 325 mg Atorvastatin Calcium (Lipitor -) 80 mg PO HS [facility] Last Admin: 10/04/16 22:20 Dose: 80 mg Clopidogrel Bisulfate (Plavix -) 75 mg PO DAILY [facility] Last Admin: 10/05/16 10:55 Dose: 75 mg Fenofibric Acid (Trilipix -) 135 mg PO HS [facility] Last Admin: 10/04/16 22:19 Dose: 135 mg Insulin Aspart (Novolog Vial Sliding Scale -) 0 vial SQ ACHS [facility] PRN Reason: Protocol Last Admin: 10/05/16 06:14 Dose: Not Given Losartan Potassium (Cozaar -) 100 mg PO DAILY [facility] Last Admin: 10/05/16 09:05 Dose: 100 mg Metformin HCl (Glucophage -) 1,000 mg PO BIDAC [facility] Last Admin: 10/05/16 06:14 Dose: Not Given Metoprolol Succinate (Toprol Xl -) 50 mg PO DAILY [facility] Last Admin: 10/05/16 09:05 Dose: 50 mg Nicotine (Nicoderm Patch -) 21 mg TD DAILY [facility] Last Admin: 10/05/16 09:04 Dose: 21 mg Nifedipine (Procardia Xl -) 30 mg PO HS [facility] Last Admin: 10/04/16 22:20 Dose: 30 mg Sitagliptin Phosphate (Januvia -) 25 mg PO DAILY@0700 [facility] Last Admin: 10/05/16 06:15 Dose: 25 mg
[2016-10-05] MEDS ORDERED: ASPIRIN 325 MG ENTERIC COATED TABLET (FP) PO SCH (10:15)
[2016-10-05] MEDS ORDERED: CLOPIDOGREL BISULFATE 75 MG TABLET (FP) PO SCH (10:15)
== END 2016-10-05 12:15 | disposition home health service (06) | DRG 45 ==
LOC: JER 16:23 → JERBED 18:06 → J4S 19:45
PROVIDERS: ADMIT Family Medicine; ATTEND Family Medicine
DX: I63.8 Other cerebral infarction (principal); R29.704 NIHSS score 4; I10 Essential (primary) hypertension; G81.94 Hemiplegia, unspecified affecting left nondominant side; E78.5 Hyperlipidemia, unspecified; E11.65 Type 2 diabetes mellitus with hyperglycemia; F17.210 Nicotine dependence, cigarettes, uncomplicated; I65.23 Occlusion and stenosis of bilateral carotid arteries; R29.810 Facial weakness; I69.322 Dysarthria following cerebral infarction
CPT/HCPCS: 36415; 70450-TC; 70498-TC; 70551-TC; 71010-TC; 80053; 81003; 82465; 82550; 82607; 83036; 83718; 83721; 84443; 84478; 84484; 85025; 85610; 86593; 86850; 86900; 86901; 93005; 93010; 93306-TC; 97116-GP; 97161-GP; 99285-25

== ENCOUNTER 2018-01-23 11:37 | Inpatient (IN) | payer OTHER ==
--- NOTE | 2018-01-23 11:48 | PDOC ---
History of Present Illness - General Chief Complaint: Shortness of Breath Stated Complaint: Shortness of Breath Time Seen by Provider: 01/23/18 11:39 - History of Present Illness Initial Comments: 01/23/18 11:54 The patient is a 67 year old male with a history of HTN, DM, CVA, CAD s/p recent CABG who presents for evaluation of SOB. The patient is accompanied by family who assist in providing the history. They report that the patient had a recent CABG performed at [facility] and was discharged 1 day ago. They state the patient began experiencing worsening SOB over the evening prompting his presentation to the ED for further evaluation. They note that the patient was admitted to the ICU following his surgery due to hypoxia and HTN. They note prior to his discharge, the patient would have a O2 sat of 91% with ambulating, but was deemed safe for discharge. The patient otherwise denies fevers, chills , chest pain, nausea, vomiting, abdominal pain, or changes with urination or bowel movements. Past History - Past Medical History Allergies/Adverse Reactions: Allergies Allergy/AdvReac Type Severity Reaction Status Date / Time No Known Allergies Allergy Verified 01/23/18 11:42 Home Medications: Ambulatory Orders Amlodipine Besylate [Norvasc -] 5 mg PO DAILY 01/23/18 Aspirin 81 mg PO DAILY 01/23/18 Atorvastatin Ca [Lipitor] 80 mg PO DAILY 01/23/18 Clopidogrel Bisulfate [Plavix -] 75 mg PO DAILY 01/23/18 Docusate Sodium [Colace] 100 mg PO TID PRN 01/23/18 Ergocalciferol (Vitamin D2) [Vitamin D2] 50,000 unit PO Q7D 01/23/18 Furosemide [Lasix -] 40 mg PO DAILY 01/23/18 Losartan Potassium 50 mg PO 1700 01/23/18 Magnesium Oxide 400 mg PO DAILY 01/23/18 Metoprolol Tartrate 100 mg PO BID 01/23/18 Nicotine [Nicotine Patch 14mg/24 hr] 1 each TD DAILY 01/23/18 Oxycodone HCl 5 mg PO Q4H PRN 01/23/18 Potassium Chloride [K-Dur -] 20 meq PO BID 01/23/18 Sitagliptin Phosphate [Januvia] 25 mg PO DAILY 01/23/18 metFORMIN HCL [Metformin HCl] 500 mg PO DAILY 01/23/18 Cardiac Disorders: Yes (cad) CVA: Yes (1997 with mild left weakness) COPD: No Diabetes: Yes (Type 2) HTN: Yes Hypercholesterolemia: Yes - Surgical History Cardiac Surgery: Yes (CABG) - Suicide/Smoking/Psychosocial Hx Smoking History: Current every day smoker Have you smoked in the past 12 months: Yes Number of Cigarettes Smoked Daily: 40 If you are a former smoker, when did you quit?: 1-2 packs per day Information on smoking cessation initiated: Yes 'Breaking Loose' booklet given: 01/23/18 Hx Alcohol Use: No Drug/Substance Use Hx: No Substance Use Type: None Hx Substance Use Treatment: No Review of Systems - Review of Systems Comments:: 01/23/18 12:04 Constitutional: No fevers, chills, fatigue, malaise HEENT: No Rhinorrhea, nasal congestion, visual changes Cardiovascular: No chest pain, syncope, palpitations, lightheadedness Respiratory: Cough, SOB. No Hemoptysis, Gastrointestinal: No Abdominal pain, Nausea, Vomiting, Constipation, Diarrhea, Melena Genitourinary: No Dysuria, Frequency, Urgency, Hesitancy, Hematuria, Flank pain Musculoskeletal: No Myalgia, arthralgia Skin: No rashes, itching, bruising, pallor Neurologic: No Headache, Dizziness, Numbness, Weakness, or Tingling Psychiatric: No Hallucinations. No SI or HI *Physical Exam - Vital Signs Last Vital Signs Temp Pulse Resp BP Pulse Ox 97.5 F L 77 24 181/80 92 L 01/23/18 11:43 01/23/18 11:43 01/23/18 11:43 01/23/18 11:43 01/23/18 11:43 - Physical Exam Comments: 01/23/18 12:08 General Appearance: Nourished. In Moderate Apparent Distress HEENT: EOMI, TYRELL. No Pharyngeal Erythema, Tonsillar Exudate, Tonsillar Erythema Neck: No Cervical Lymphadenopathy Respiratory/Chest: Expiratory wheezing noted on exam with bibasilar crackles noted. Sternotomy Scar well healing on exam. No Rhonchi, Cardiovascular: Regular Rhythm, Regular Rate. No Murmur, Gallops, Rubs Gastrointestinal/Abdominal: Normal Bowel Sounds, Soft. No Guarding, Rebound, Tenderness Musculoskeletal: No CVA Tenderness Extremity: Normal Capillary Refill Integumentary: Normal Color, Dry, Warm Neurologic: Fully Oriented, Alert, Normal Mood/Affect, Normal Response, Heart Score/ECG Review #1 ECG reviewed & interpreted by me at: 12:15 General ECG Interpretation: Sinus Rhythm, Normal Rate, Normal Intervals, No acute ischemic changes ED Treatment Course - LABORATORY CBC & Chemistry Diagram: 01/24/18 05:30 01/24/18 05:30 Medical Decision Making - Medical Decision Making 01/23/18 12:15 The patient is a 67 year old male with a history of HTN, DM, CVA, CAD s/p recent CABG who presents for evaluation of SOB. Differential includes but is not limited to: Pulmonary Edema, CHF, ACS, Pneumonia, infectious, metabolic derangement. Given the patient's physical exam, it is likely his symptoms are due to pulmonary edema. We will obtain a cbc, cmp, troponin, bnp, chest plain film, ekg to evaluate further. We will place the patient on Bipap to manage in the meantime and continue to closely monitor and reassess. 01/23/18 13:44 CBC demonstrates an elevated wbc to 12. cmp is unremarkable. Troponin is unremarkable. BNP is elevated to 2000s. Chest plain film demonstrates a right sided pleural effusion. We discussed the case with Dr. Zaragoza the patient's key account director who stated that the patient's pleural effusion is likely due to his recent CABG and the patient will require diuresis for management. We discussed the case with Dr. Camacho who accepted the patient for admission. We will treat the patient with lasix here in the ED and continue to closely monitor and reassess. *DC/Admit/Observation/Transfer Diagnosis at time of Disposition: Pulmonary edema Qualifiers: Chronicity: acute Qualified Code(s): J81.0 - Acute pulmonary edema - Discharge Dispostion Condition at time of disposition: Stable - Referrals - Patient Instructions - Post Discharge Activity
--- NOTE | 2018-01-23 12:08 | PDOC ---
Attending Attestation - Resident Resident Name: Brandt De Souza - ED Attending Attestation I have performed the following: I have examined & evaluated the patient, The case was reviewed & discussed with the resident, I agree w/resident's findings & plan, Exceptions are as noted - HPI HPI: 01/23/18 11:52 67y M hx of htn, hl, cad s/p recent cabg, discharged from [facility] yesterday, went home and started feeling SOB with a nonproductive cough. Pt notes a chest tightness when he lies down. denies any fevers/chills. denies any active cp, n/v , diaphosis, abd pain, back pain, leg swelling. on exam pt has rales b/l up to the mid lung moderate respiratory distress sternotomy wound that is c/d/i without signs of erythema, +clubbing trace edema in the b/l LE neg homans suspect chf/pulm edema will r/o pna ekg to screen for acute cardiac disesae will start bipap to ease respiratory status will dw dr. nice and dr. dixon - Physicial Exam PE: 01/23/18 13:43 suki logan - Medical Decision Making 01/23/18 13:42 pts labs reviewed cxr noted for R pleural effusion case dw cardiology, requests diuresis will admit to tele for further management Case discussed in detail with admitting physician including history, physical exam and ancillary studies. Admitting physician has assumed care for the patient, will follow all pending diagnostics and will complete the evaluation and treatment. CRITICAL CARE DOCUMENTATION: I spent ~40 minutes of Critical Care time, excluding separately billable procedures, involving high complexity decision making to assess, manipulate and support vital system function(s) to treat single or multiple vital organ system failure and/or to prevent further life threatening deterioration of the patient' s condition. Heart Score/ECG Review - ECG Impressions Comment:: 01/23/18 13:44 Twelve-lead EKG was performed and reviewed by me. There is normal sinus rhythm with a normal rate. rate of [address] changes suggestive of acute ischemia
[2018-01-23 12:11] LABS: BASO % 0.8 % (0-2.0); EOS % 1.7 % (0-4.5); HEMATOCRIT 27.9 % (35.4-49); HEMOGLOBIN 8.8 GM/dL (11.7-16.9); LYMPH % 9.7 % (8-40); MCH 25.6 pg (25.7-33.7); MCHC 31.4 g/dl (32.0-35.9); MEAN CELL VOLUME 81.7 fl (80-96); MEAN PLT VOLUME 9.6 fl (7.5-11.1); MONO % 7.1 % (3.8-10.2); NEUT % 80.7 % (42.8-82.8); PLATELET COUNT 618 K/MM3 (134-434); RBC 3.42 M/mm3 (4.00-5.60); WHITE BLOOD COUNT 12.9 K/mm3 (4.0-10.0)
[2018-01-23 13:11] LABS: ALBUMIN 2.6 g/dl (3.4-5.0); ANION GAP 11 (8-16); BLOOD UREA NITROGEN 23 mg/dL (7-18); CALCIUM 8.5 mg/dL (8.5-10.1); CHLORIDE 103 mmol/L (98-107); CO2 25 mmol/L (21-32); CREATININE 0.8 mg/dL (0.7-1.3); GLUCOSE,RANDOM 138 mg/dL (74-106); SGOT/AST 37 U/L (15-37); SGPT/ALT 132 U/L (12-78); SODIUM 139 mmol/L (136-145)
[2018-01-23 13:16] LABS: ALK PHOS 160 U/L (45-117); BILIRUBIN,TOTAL 0.9 mg/dL (0.2-1.0); N-TERMINAL BNP 2792.89 pg/ml (5-125); TOT PROT 6.3 g/dl (6.4-8.2)
[2018-01-23] MEDS ORDERED: FUROSEMIDE 40 MG/4 ML INJECTABLE VIAL IVPUSH ONE (13:35)
[2018-01-23] MEDS ORDERED: FUROSEMIDE 40 MG/4 ML INJECTABLE VIAL ONE (13:43)
[2018-01-23 14:59] LABS: ANISOCYTOSIS 3+; MACROCYTOSIS 0; PLATELET ESTIMATE INCREASED
--- NOTE | 2018-01-23 15:27 | PN ---
Progress Note (short form) - Note Progress Note: PULMONARY CONSULTATION DICTATED 01/23/18 IMP ACUTE ON CHRONIC HYPOXEMIC RESPIRATORY FAILURE LIKELY CHF R PLEURAL EFFUSION ASHD S/P CABG HTN COPD H/O RUL PULMONARY NODULE PET SCAN NEGATIVE H/O CVA DM ANEMIA FORMER SMOKER PLAN LASIX INHALED BRONCHODILATORS NIPPV NEEDED O2 TO MAINTAIN SAT >90% PLAVIX MONITOR LYTES,H+H F/U CHEST X-RAYS D-DIMER IF ELEVATED CHEST CTA ECHO ABG DR MEDINA Problem List - Problems (1) Acute hypoxemic respiratory failure Code(s): J96.01 - ACUTE RESPIRATORY FAILURE WITH HYPOXIA (2) Cerebrovascular accident (CVA) Code(s): I63.9 - CEREBRAL INFARCTION, UNSPECIFIED (3) Cigarette smoker Code(s): F17.210 - NICOTINE DEPENDENCE, CIGARETTES, UNCOMPLICATED (4) Diabetes mellitus Code(s): E11.9 - TYPE 2 DIABETES MELLITUS WITHOUT COMPLICATIONS (5) 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
--- NOTE | 2018-01-23 15:51 | HP ---
Admitting History and Physical - Primary Care Physician PCP: Geoff Camacho - Admission Chief Complaint: DYSPNEA History of Present Illness: The patient is a 67 year old male with a history of HTN, DM, CVA, CAD s/p recent CABG who presents for evaluation of SOB. The patient is accompanied by family who assist in providing the history. They report that the patient had a recent CABG performed at [facility] and was discharged 1 day ago. They state the patient began experiencing worsening SOB over the evening prompting his presentation to the ED for further evaluation. They note that the patient was admitted to the ICU following his surgery due to hypoxia and HTN. They note prior to his discharge, the patient would have a O2 sat of 91% with ambulating, but was deemed safe for discharge. The patient otherwise denies fevers, chills , chest pain, nausea, vomiting, abdominal pain, or changes with urination or bowel movements. 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 Home Medications - Allergies Allergies/Adverse Reactions: Allergies Allergy/AdvReac Type Severity Reaction Status Date / Time No Known Allergies Allergy Verified 01/23/18 11:42 - Home Medications Home Medications: Ambulatory Orders Amlodipine Besylate [Norvasc -] 5 mg PO DAILY 01/23/18 Aspirin 81 mg PO DAILY 01/23/18 Atorvastatin Ca [Lipitor] 80 mg PO DAILY 01/23/18 Clopidogrel Bisulfate [Plavix -] 75 mg PO DAILY 01/23/18 Docusate Sodium [Colace] 100 mg PO TID PRN 01/23/18 Ergocalciferol (Vitamin D2) [Vitamin D2] 50,000 unit PO Q7D 01/23/18 Furosemide [Lasix -] 40 mg PO DAILY 01/23/18 Losartan Potassium 50 mg PO 1700 01/23/18 Magnesium Oxide 400 mg PO DAILY 01/23/18 Metoprolol Tartrate 100 mg PO BID 01/23/18 Nicotine [Nicotine Patch 14mg/24 hr] 1 each TD DAILY 01/23/18 Oxycodone HCl 5 mg PO Q4H PRN 01/23/18 Potassium Chloride [K-Dur -] 20 meq PO BID 01/23/18 Sitagliptin Phosphate [Januvia] 25 mg PO DAILY 01/23/18 metFORMIN HCL [Metformin HCl] 500 mg PO DAILY 01/23/18 Review of Systems - Review of Systems Constitutional: reports: Weakness Eyes: reports: No Symptoms HENT: reports: No Symptoms Neck: reports: No Symptoms Cardiovascular: reports: Shortness of Breath Respiratory: reports: SOB Gastrointestinal: reports: No Symptoms Genitourinary: reports: No Symptoms Musculoskeletal: reports: No Symptoms Integumentary: reports: Incision Neurological: reports: No Symptoms Endocrine: reports: No Symptoms Physical Examination Vital Signs: Vital Signs Temperature 98.4 F 01/23/18 15:09 Pulse Rate 75 01/23/18 15:09 Respiratory Rate 20 01/23/18 15:09 Blood Pressure 146/86 01/23/18 15:09 O2 Sat by Pulse Oximetry (%) 98 01/23/18 15:09 Constitutional: Yes: Moderate Distress Eyes: Yes: WNL HENT: Yes: WNL Neck: Yes: WNL Cardiovascular: Yes: WNL Respiratory: Yes: On BiPap, SOB Gastrointestinal: Yes: WNL Musculoskeletal: Yes: Muscle Weakness Extremities: Yes: WNL Edema: No Peripheral Pulses WNL: Yes Integumentary: Yes: Incision (CLEAN) Wound/Incision: Yes: Open to air Neurological: Yes: WNL ...Motor Strength: WNL Psychiatric: Yes: WNL Labs: CBC, BMP 01/23/18 12:00 01/23/18 12:00 Problem List - Problems (1) Old cerebrovascular accident (CVA) without late effect Code(s): Z86.73 - PRSNL HX OF TIA (TIA), AND CEREB INFRC W/O RESID DEFICITS (2) Pulmonary embolism Code(s): I26.99 - OTHER PULMONARY EMBOLISM WITHOUT ACUTE COR PULMONALE (3) ASHD (arteriosclerotic heart disease) Code(s): I25.10 - ATHSCL HEART DISEASE OF [place] CORONARY ARTERY W/O ANG PCTRS (4) Acute hypoxemic respiratory failure Code(s): J96.01 - ACUTE RESPIRATORY FAILURE WITH HYPOXIA (5) S/P CABG (coronary artery bypass graft) Code(s): Z95.1 - PRESENCE OF AORTOCORONARY BYPASS GRAFT (6) Cigarette smoker Code(s): F17.210 - NICOTINE DEPENDENCE, CIGARETTES, UNCOMPLICATED (7) Diabetes mellitus Code(s): E11.9 - TYPE 2 DIABETES MELLITUS WITHOUT COMPLICATIONS (8) 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
[2018-01-23] MEDS ORDERED: ALBUTEROL SO4 2.5/IPRATROPIUM 0.5 INH SOL 3 ML VIAL.NEB. NEB PRN (15:54)
[2018-01-23] MEDS ORDERED: ACETAMINOPHEN 325 MG TABLET (FP) PO PRN (15:54)
[2018-01-23] MEDS ORDERED: oxyCODONE HCL 5 MG TABLET PO PRN (15:54)
[2018-01-23] MEDS ORDERED: FUROSEMIDE 40 MG/4 ML INJECTABLE VIAL IVPUSH SCH (16:00)
--- NOTE | 2018-01-23 16:02 | CONS ---
DATE OF CONSULTATION: 01/23/2018 REFERRING PHYSICIAN: Geoff Camacho MD The patient is a 67-year-old Armenian male past medical history of hypertension , ASHD. He is status post CABG 1 week ago. Discharged from [facility] 1 day ago, diabetes, CVA, long standing history tobacco use, 1 pack per day for many years, quit 1 month ago, admitted to [facility] with acute onset of shortness of breath. As stated before, the patient underwent a CABG 1 week ago on . He was discharged 1 day prior to admission. He apparently was doing well yesterday and last night when he went to bed, he developed shortness of breath, orthopnea and chest congestion and cough non-productive at which time he presented to the emergency room. In the ER, he was found to be in moderate-to- severe respiratory distress. He was started on Lasix and supplemental O2 with some improvement, transferred to the floor for further monitoring. Patient apparently post surgery was placed on home oxygen therapy. Apparently he had discharge O2 saturation of 91% prior to discharge from [facility]. Patient as stated before has history of tobacco use, quit 1 month ago. He is retired. 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 There is no history of DVT of pulmonary emboli in the past. He denies any chest pains or palpitations. He denies hemoptysis. He denies any lower extremity edema or discomfort. PAST MEDICAL HISTORY: Again includes hypertension, diabetes, CVA, ASHD, status post CABG. SOCIAL HISTORY: History of tobacco use, quit 1 month ago. He was born in [place]. He moved to the [place] many years ago. No occupational exposures. REVIEW OF SYSTEMS: Positive dyspnea. Positive orthopnea. Positive chest congestion. Positive cough. No hemoptysis. No chest pain. No palpitations. No abdominal pain. No lower extremity edema. MEDICATIONS: Prior to admission include Norvasc, aspirin, Lipitor, Plavix, Colace, vitamin D and Lasix, losartan, magnesium oxide, metoprolol, nicotine patch, oxycodone and Januvia, metformin. PHYSICAL EXAMINATION: General: On physical examination, the patient is a well-developed, well- nourished male awake, alert, dyspneic on BIPAP. Vitals: Blood pressure is 117/71, respiratory rate is 16, O2 saturation is 98% on BIPAP with 30% oxygen. The heart rate is 68 and he is afebrile. HEENT: Normocephalic atraumatic. Neck: Supple. Heart: Regular S1, S2. Chest: Bilateral crackles and a few scattered wheezes. Abdomen: Soft, bowel sounds are positive. Extremities: No cyanosis, edema. LABORATORY STUDIES: WBC is 12.9, hemoglobin 8.8, hematocrit 27.9 with a platelet count of 618,000. INR is 1.10. BUN is 23, creatinine is 0.8. ALT is 132, alkaline phosphatase of 160, BNP is 2792. Chest x-ray reveals he is status post CABG, prominent cardiac silhouette, no significant pulmonary vascular changes, right pleural effusion. IMPRESSION: Acute on chronic hypoxemic respiratory failure, secondary to: 1. Likely decompensated congestive heart failure. 2. Arteriosclerotic heart disease, status post coronary artery bypass graft. 3. Chronic obstructive pulmonary disease. 4. Diabetes. 5. History of cerebrovascular accident. 6. RUL Pulmonary nodule Pet scan no abnormal uptake PLAN: Continue Lasix, BIPAP, supplemental O2, monitor O2 saturations, blood gas , obtain follow up chest x-ray, echocardiogram, D-dimer if elevated will order CTA of the chest to rule out possible pulmonary emboli. Also inhaled bronchodilators. DOROTHY MEDINA M.D. 1 [id number] MTDD
[2018-01-23] MEDS: BACITRACIN 15 GM TUBE TOPICAL OINTMENT TP SCH (16:27)
[2018-01-23] MEDS: NICOTINE 21 MG/24 HOURS TOPICAL PATCH TD SCH (16:28)
--- NOTE | 2018-01-23 16:37 | CON.CARD ---
Consult Consult Specialty:: cardio - History of Present Illness Chief Complaint: sob History of Present Illness: 67 yo male here with sob. discharged yesterday from [facility] following CABG. was awake all night due to sternal discomfort at surgical site. but was not feeling sob. this am btw 5-6am he began suddenly feeling very sob. no new cp. had not been sob at [facility], getting lasix 40 iv bid there the past couple days. currently still very sob if removes bipap--e.g. when tries to drink he begins coughing fiercely and feeling very sob. urinated approx 2/3 of plastic urinal since received lasix 40 IVP around 1pm in ER. received another dose approx 90 min ago but not yet diuresing much. 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 Cardio/Vascular: Yes: HTN, Hyperlipdemia Endocrine: Yes: Diabetes Mellitus - Alcohol/Substance Use Hx Alcohol Use: No - Smoking History Smoking history: Current every day smoker Have you smoked in the past 12 months: Yes Aproximately how many cigarettes per day: 40 If you are a former smoker, when did you quit?: 1-2 packs per day - Social History Usual Living Arrangement: With Spouse ADL: Independent 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 Home Medications - Allergies Allergies/Adverse Reactions: Allergies Allergy/AdvReac Type Severity Reaction Status Date / Time No Known Allergies Allergy Verified 01/23/18 11:42 - Home Medications Home Medications: Ambulatory Orders Amlodipine Besylate [Norvasc -] 5 mg PO DAILY 01/23/18 Aspirin 81 mg PO DAILY 01/23/18 Atorvastatin Ca [Lipitor] 80 mg PO DAILY 01/23/18 Clopidogrel Bisulfate [Plavix -] 75 mg PO DAILY 01/23/18 Docusate Sodium [Colace] 100 mg PO TID PRN 01/23/18 Ergocalciferol (Vitamin D2) [Vitamin D2] 50,000 unit PO Q7D 01/23/18 Furosemide [Lasix -] 40 mg PO DAILY 01/23/18 Losartan Potassium 50 mg PO 1700 01/23/18 Magnesium Oxide 400 mg PO DAILY 01/23/18 Metoprolol Tartrate 100 mg PO BID 01/23/18 Nicotine [Nicotine Patch 14mg/24 hr] 1 each TD DAILY 01/23/18 Oxycodone HCl 5 mg PO Q4H PRN 01/23/18 Potassium Chloride [K-Dur -] 20 meq PO BID 01/23/18 Sitagliptin Phosphate [Januvia] 25 mg PO DAILY 01/23/18 metFORMIN HCL [Metformin HCl] 500 mg PO DAILY 01/23/18 Family Disease History - Family Disease History Family History: Denies (no known CMP) Review of Systems - Review of Systems Constitutional: denies: Chills, Fever Eyes: denies: Eye Pain HENT: denies: Nasal Congestion Neck: denies: Stiffness Cardiovascular: denies: Palpitations Respiratory: denies: Orthopnea, PND Gastrointestinal: denies: Diarrhea, Rectal Bleeding Genitourinary: denies: Burning, Hematuria Musculoskeletal: denies: Muscle Pain Integumentary: denies: Rash Neurological: denies: Numbness, Seizure, Syncope Endocrine: denies: Excessive Sweating Hematology/Lymphatic: denies: Excessive Bleeding Vital Signs: Vital Signs Temperature 98.4 F 01/23/18 15:09 Pulse Rate 75 01/23/18 15:09 Respiratory Rate 20 01/23/18 16:13 Blood Pressure 146/86 01/23/18 15:09 O2 Sat by Pulse Oximetry (%) 98 01/23/18 16:13 Constitutional: Yes: Well Nourished, No Distress Eyes: No: Sclera Icterus HENT: No: Nasal Congestion Neck: No: Decreased ROM Respiratory: Yes: Diminished (R base), Rhonchi (diffusely). No: Accessory Muscle Use, Wheezes Gastrointestinal: Yes: Normal Bowel Sounds. No: Distention, Hepatomegaly, Palpable Mass, Tenderness Cardiovascular: Yes: Regular Rate and Rhythm JVD: Yes Carotid Bruit: No PMI: Non-Displaced Heart Sounds: Yes: S1, S2. No: Gallop Murmur: No: Systolic Murmur, Diastolic Murmur Musculoskeletal: Yes: Other (No kyphosis) Extremities: No: Cold, Cyanosis Edema: No Peripheral Pulses: 0 Right Femoral, 2+ Left Carotid, 2+ Right Carotid, 2+ Left Doralis Pedis, 2+ Right Dorsalis Pedis Integumentary: No: Jaundice Neurological: Yes: Alert, Oriented (x3) Psychiatric: No: Agitated - Other Data Labs, Other Data: CBC, BMP 01/23/18 12:00 01/23/18 12:00 Troponin, BNP 01/23/18 12:00 Troponin I 0.05 D B-Natriuretic Peptide 2792.89 H Troponin, BNP 01/23/18 12:00 Troponin I 0.05 D B-Natriuretic Peptide 2792.89 H Laboratory Tests 01/23/18 01/23/18 12:00 12:00 WBC 12.9 H Hgb 8.8 L Plt Count 618 H D Sodium 139 Potassium 5.0 D Carbon Dioxide 25 BUN 23 H Creatinine 0.8 AST 37 D ALT 132 H D Creatine Kinase 305 Troponin I 0.05 D B-Natriuretic Peptide 2792.89 H Assessment/Plan ECG--NSR, normal axis. <1mm ST elevations I/avL, 1mm concave elevation V2= NO CHANGE VS PRIOR 01/18/18 AT [facility]. +pseudonormalization of TWIs previously seen V4 -6 CXR--R effusion (small on my read), no pulm edema. + vascular redistribution on my read Echo 02/04 (today): TDS. nl LVSF. nl RV size/fxn. nl LA size. mild MR. no pericardial effusion. Echo 11/05 ([facility]): nl LV/EF. mild LVH. nl RV. mild LAE. mild MR. no evid pulm HTN. dilated IVC. LHC 11/05: EDP 18, EF 60%. 70-80% mLAD, CRITICAL CARE RN of D1 fills from LAD. 80-90% pLCX, CRITICAL CARE RN dLCX, CRITICAL CARE RN LPL1 fills from RCA. 70-80% pRCA, CRITICAL CARE RN mRCA fills from LAD. Carotid dopplers 11/05 ([facility]): RACHID 80-99% (PSV 425, EDV 133), + ulcerated plq seen. LICA nonobstructive. CTA neck 11/05 ([facility]): RACHID <50%. + R vert athero dz, not completely opacified. images reviewed by vascular medicine specialist there, who felt likely soft plaque causing severe RACHID narrowing. cardiac d/c meds from [facility]: amlodipine 5mg, aspirin 81, plavix 75, atorva 80, lasix 40, losartan 50, metoprolol tartrate 100mg bid, acute hypoxic resp failure, post-CTS pleural effusion: -postop CXRs in [facility] showed congestive changes with small R effusion -was diuresed initially with lasix 40 IV TID, then BID. sent home on lasix 40 po qd. creatinine normal there -d/c weight 142 lbs (01/22) -did well at [facility], then acute resp distress <24 hrs after went home -remains bipap dependent, despite cxr same to better (based on the reports) vs [facility] CXRs, without much pulm edema -do not think small R effusion without intraalveolar edema should be causing this degree of O2 requirements and resp distress -BNP 2700, from 114 at [facility] 01/14/18 -no ischemic ECG abnormalities (nonspecific finding TWI pseudonormalized). troponin x1 negative--rpt serial. doubt acute ischemia/graft closure given all arterial grafts. -d/w'd dr villasenor. d-Dimer very elevated. -will do STAT CTA to r/o PE, and start empiric UFH gtt with bolus -transfer to ICU for monitoring -cont lasix 40 iv bid for now--recheck creat in am CAD s/p CABG: -01/05 s/p MATHIS to LAD, RAS to OM1, radial artery to LPDA--i.e. all arterial revasc -no signs ACS, as above HTN: -sbp initially 180 in ER, now normalized -cont home meds anemia: -postop hgb on discharge from [facility] 8.5 -hgb stable here elevated ALT: -was >200 postop at [facility], trending down -observe labs trend copd: -per dr villasenor team lung nodule: -small nodule, recently had PET which was negative -outpt f/u with pulmonary carotid stenosis (R): -plan is for stent vs CEA electively at [facility], once recovers fully from CABG
[2018-01-23 16:54] LABS: ARTERIAL BLD GAS O2 SATURATION 94.8 % (90-98.9); ARTERIAL BLOOD GAS BASE EXCESS 4.4 meq/l (-2-2); ARTERIAL BLOOD GAS PCO2 38.5 mmHg (35-45); ARTERIAL BLOOD GAS PO2 73.4 mmHg (80-100); ARTERIAL BLOOD GAS pH 7.47 (7.35-7.45)
[2018-01-23 17:02] LABS: ALLENS TEST POSITIVE
[2018-01-23] MEDS ORDERED: HEPARIN NA (PORCINE) 5,000 UNITS/ML 1ML VIAL IVPUSH PRN (18:23)
[2018-01-23] MEDS: HEPARIN - 25,000 UNIT in SODIUM CHLORIDE 495 ML IV SCH (18:47)
[2018-01-23] MEDS: HEPARIN NA (PORCINE) 5,000 UNITS/ML 1ML VIAL IVPUSH PRN ×2 (18:50→23:48)
--- NOTE | 2018-01-23 21:20 | CONSULT ---
Consultation: CONSULT SERVICE: ICU Resident HISTORY OF PRESENT ILLNESS: 67yo M with history of CAD s/p recent CABG at [facility] (1 week ago; discharged after 1 day), DM, CVA, and HTN who was seen for acute shortness of breath and chest pain. Pt reported that he was originally fine after his surgery and was discharged on oxygen since his levels were low, but he does not recall specific numbers. Pt stated that at home he developed suddent shortness of breath, chest discomfort with each breath and orthopnea. He immediately came to the ER for further evaluation and was given Lasix and nasal cannula which had helped him. Pt on the floors once again developed shortness of breath and had developed some coughing and was placed on Bilevel NIPPV which had further improvement. D-dimer was ordered and resulting in an elevated count and so pt was sent to CTA and then transferred to ICU. Of noted, echocardiogram was previously performed during this admission which showed a technically limited study w/ limited assessment of septal wall motion. Currently, pt does not feel short of breath and still has some slight rib angle discomfort with each deep breath. Pt reports he previously had smoked for "many years" and at his max he reports 1ppd. He has never previously had a DVT or PE and has no family history noted. 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 REVIEW OF SYSTEMS: CONSTITUTIONAL: Absent: fever, chills, diaphoresis, generalized weakness, malaise, loss of appetite, weight change HEENT: Absent: rhinorrhea, nasal congestion, throat pain, throat swelling, difficulty swallowing, mouth swelling, ear pain, eye pain, visual changes CARDIOVASCULAR: Present: Chest discomfort Absent: syncope, palpitations, irregular heart rate, lightheadedness, peripheral edema RESPIRATORY: Present: Cough, shortness of breath, orthopnea Absent: dyspnea with exertion, wheezing, stridor, hemoptysis GASTROINTESTINAL: Absent: abdominal pain, abdominal distension, nausea, vomiting, diarrhea, constipation, melena, hematochezia HEMATOLOGIC/IMMUNOLOGIC: Absent: easy bleeding, easy bruising, lymphadenopathy, frequent infections PHYSICAL EXAMINATION Vital Signs - 24 hr 01/23/18 01/23/18 01/23/18 11:43 12:00 12:13 Temperature 97.5 F L Pulse Rate 77 Pulse Rate [ Apical] Respiratory 24 Rate Blood Pressure 181/80 Blood Pressure [Left Arm] O2 Sat by Pulse 92 L 100 100 Oximetry (%) 01/23/18 01/23/18 01/23/18 12:52 13:50 14:30 Temperature Pulse Rate Pulse Rate [ 65 68 Apical] Respiratory 18 16 Rate Blood Pressure Blood Pressure 136/58 117/71 [Left Arm] O2 Sat by Pulse 98 98 98 Oximetry (%) 01/23/18 01/23/18 01/23/18 15:09 16:13 18:19 Temperature 98.4 F 98.9 F Pulse Rate 75 77 Pulse Rate [ Apical] Respiratory 16 20 20 Rate Blood Pressure 146/86 118/59 Blood Pressure [Left Arm] O2 Sat by Pulse 98 98 Oximetry (%) GENERAL: NAD, Awake, alert, and fully oriented HEENT: NC/AT, EOMI, LINDY, sclera anicteric, MMM NECK: soft, no JVD noted, no carotid bruits LUNGS: Slight rales noted on R>L lower base, however otherwise CTA. No accessory muscle use, on NRB mask spO2 100% HEART: RRR, normal S1 and S2 without murmur CHEST: Sternotomy site with bandage overlying w/o notable bleeding; did not directly visualize site ABDOMEN: Soft, nontender, not distended, normoactive bowel sounds, no guarding. No hepatomegaly EXTREMITIES: 2+ DP pulses, warm, well-perfused. No peripheral edema. No calf tenderness. LUE band noted near wrist w/o bleeding (site of harvest) PSYCHIATRIC: Cooperative. Good eye contact. Appropriate mood and affect. SKIN: Warm, dry, normal turgor, no rashes or lesions noted. Laboratory Results - last 24 hr 01/23/18 01/23/18 01/23/18 12:00 12:00 16:11 WBC 12.9 H RBC 3.42 L Hgb 8.8 L Hct 27.9 L D MCV 81.7 MCH 25.6 L MCHC 31.4 L RDW 17.0 H Plt Count 618 H D MPV 9.6 Absolute Neuts (auto) 10.4 Neutrophils % 80.7 D Neutrophils % (Manual) 80.0 Band Neutrophils % 0.0 Lymphocytes % 9.7 D Lymphocytes % (Manual) 12.0 Monocytes % 7.1 Monocytes % (Manual) 7 Eosinophils % 1.7 Eosinophils % (Manual) 1.0 Basophils % 0.8 Basophils % (Manual) 0.0 Myelocytes % (Man) 0 Promyelocytes % (Man) 0 Blast Cells % (Manual) 0 Nucleated RBC % 1 H Metamyelocytes 0 Hypochromia 2+ Platelet Estimate Increased Polychromasia 3+ Poikilocytosis 0 Anisocytosis 3+ Microcytosis 2+ Macrocytosis 0 D-Dimer 7565 H Anticoagulation Therapy Puncture Site ABG pH ABG pCO2 at Pt Temp ABG pO2 at Pt Temp ABG HCO3 ABG O2 Sat (Measured) ABG O2 Content ABG Base Excess Gerson Test O2 Delivery Device Oxygen Flow Rate Vent Mode Vent Rate Mechanical Rate Pressure Support Vent Sodium 139 Potassium 5.0 D Chloride 103 Carbon Dioxide 25 Anion Gap 11 BUN 23 H Creatinine 0.8 Creat Clearance w eGFR > 60 Random Glucose 138 H Calcium 8.5 Total Bilirubin 0.9 AST 37 D ALT 132 H D Alkaline Phosphatase 160 H Creatine Kinase 305 Creatine Kinase Index 0.8 CK-MB (CK-2) 2.58 Troponin I 0.05 D B-Natriuretic Peptide 2792.89 H Total Protein 6.3 L Albumin 2.6 L 01/23/18 01/23/18 16:40 18:55 WBC RBC Hgb Hct MCV MCH MCHC RDW Plt Count MPV Absolute Neuts (auto) Neutrophils % Neutrophils % (Manual) Band Neutrophils % Lymphocytes % Lymphocytes % (Manual) Monocytes % Monocytes % (Manual) Eosinophils % Eosinophils % (Manual) Basophils % Basophils % (Manual) Myelocytes % (Man) Promyelocytes % (Man) Blast Cells % (Manual) Nucleated RBC % Metamyelocytes Hypochromia Platelet Estimate Polychromasia Poikilocytosis Anisocytosis Microcytosis Macrocytosis D-Dimer Anticoagulation Therapy No Result Required. Puncture Site Right radial ABG pH 7.47 H ABG pCO2 at Pt Temp 38.5 ABG pO2 at Pt Temp 73.4 L ABG HCO3 27.8 H ABG O2 Sat (Measured) 94.8 ABG O2 Content 12.3 L ABG Base Excess 4.4 H Gerson Test Positive O2 Delivery Device Bipap Oxygen Flow Rate 35% Vent Mode No Result Required. Vent Rate No Result Required. Mechanical Rate No Result Required. Pressure Support Vent No Result Required. Sodium Potassium Chloride Carbon Dioxide Anion Gap BUN Creatinine Creat Clearance w eGFR Random Glucose Calcium Total Bilirubin AST ALT Alkaline Phosphatase Creatine Kinase 251 Creatine Kinase Index 0.8 CK-MB (CK-2) 2.18 Troponin I 0.04 B-Natriuretic Peptide Total Protein Albumin Active Medications Generic Name Dose Route Start Last Admin Trade Name Freq PRN Reason Stop Dose Admin Acetaminophen 650 mg 01/23/18 15:54 Tylenol - PO Q6H PRN FEVER Albuterol/Ipratropium 1 amp 01/23/18 15:54 Duoneb - NEB Q6H PRN SHORTNESS OF BREATH Amlodipine Besylate 5 mg 01/24/18 10:00 Norvasc - PO DAILY [facility] Aspirin 81 mg 01/24/18 10:00 Ecotrin - PO DAILY [facility] Atorvastatin Calcium 80 mg 01/23/18 22:00 Lipitor - PO HS [facility] Bacitracin 1 applic 01/23/18 16:00 01/23/18 16:27 Bacitracin - TP 1 applic DAILY [facility] Administration Clopidogrel Bisulfate 75 mg 01/24/18 10:00 Plavix - PO DAILY [facility] Docusate Sodium 300 mg 01/23/18 22:00 Colace - PO HS [facility] Ergocalciferol 50,000 unit 01/30/18 10:00 Drisdol - PO Fr [facility] Furosemide 40 mg 01/24/18 06:00 Lasix Injection - IVPUSH BIDLASIX [facility] Heparin Sodium (Porcine) 1,000 unit 01/23/18 18:23 Heparin - IVPUSH PRN PRN Heparin Heparin Sodium (Porcine) 5,000 unit 01/23/18 18:23 01/23/18 18:50 Heparin - IVPUSH 5,000 unit PRN PRN Administration Heparin Heparin Sodium (Porcine) 25, 500 mls @ 20 mls/hr 01/23/18 18:30 01/23/18 18: 47 000 unit/ Sodium Chloride IV 1,000 unit/hr TITR [facility] 20 mls/hr Administration Protocol 1,000 UNIT/HR Losartan Potassium 50 mg 01/24/18 10:00 Cozaar - PO DAILY [facility] Magnesium Oxide 400 mg 01/23/18 22:00 Mag-Ox - PO BID [facility] Metformin HCl 500 mg 01/24/18 07:00 Glucophage - PO DAILY@0700 [facility] Metoprolol Tartrate 100 mg 01/23/18 22:00 Lopressor - PO BID [facility] Nicotine 21 mg 01/23/18 16:00 01/23/18 16:28 Nicoderm Patch - TD Not Given DAILY [facility] Oxycodone HCl 5 mg 01/23/18 15:54 Roxicodone - PO Q6H PRN PAIN LEVEL 7 - 10 Potassium Chloride 20 meq 01/23/18 22:00 K-Dur - PO BID [facility] Senna 1 tab 01/23/18 22:00 Senna - PO HS [facility] Sitagliptin Phosphate 25 mg 01/24/18 07:00 Januvia - PO DAILY@0700 [facility] ASSESSMENT/PLAN: Neuro: Neurologically intact Resp: Pulmonary Embolism --CTA confirmed subsegmental R pulm artery PE --Echocardiogram with very limited study, no RV pressures measured? --Hemodynamically stable at this point --BNP noted to be elevated --Heparin gtt to continue --Duplex LE ordered r/o DVT --Most likely provoked by recent procedure given history of CABG at [facility] --Incentive spirometry due to atelectasis noted on CTA and notable air splinting Incidental RUL nodule --Found on CT; smooth bordered, noncalcified, 8mm --Will need to obtain previous records to determine if nodule has increased or is possibly stable --Was not evident on Neck CT on prior records here. Cardiac: Cardiology on board: Dr. Zaragoza S/p CABG 1 week prior --No signs of ACS at this point --Oxycodone 5 q6h PRN for pain mgmt --Incentive spirometer to prevent basilar atelectasis HTN --Currently normotensive on pt's home regiment --Continue: [id number] qDaily Norvasc 5mg qdaily Lopressor 100mg BID PO HLD --Continue home medications Carotid Stenosis Elective procedure to be done in future once CABG and other acute problems recovered Endocrine: DM --Continue Januvia 25mg qdaily --BGM ACHS --ISS coverage if needed FEN: Fluids: None indicated Electrolyte abnormalities: None Nutrition: Diabetic, low-sodium PPX: DVT - Heparin gtt already on board GI - None indicated Dispo: Continue monitoring; if pt hemodynamically stable can most likely transfer out of unit in AM/next day Xiang Jacob, DO - IM PGY-2 Visit type - Emergency Visit Emergency Visit: No - New Patient This patient is new to me today: Yes Date on this admission: 01/24/18 - Critical Care Critical Care patient: Yes Total Critical Care Time (in minutes): 35 Critical Care Statement: The care of this patient involved high complexity decision making to prevent further life threatening deterioration of the patient 's condition and/or to evaluate & treat vital organ system(s) failure or risk of failure.
[2018-01-23] MEDS: ATORVASTATIN CA 80 MG TABLET (FP) PO SCH (22:00)
[2018-01-23] MEDS: MAGNESIUM OXIDE 400 MG TABLET (FP) PO SCH (22:00)
[2018-01-23] MEDS: POTASSIUM CHLORIDE TABS 20 MEQ TABLET.ER (FP) PO SCH (22:00)
[2018-01-23] MEDS: SENNOSIDES 8.6MG TABLET (FP) PO SCH (22:00)
[2018-01-23] MEDS: DOCUSATE SODIUM 100 MG CAPSULE (FP) PO SCH (22:00)
[2018-01-23] MEDS: METOPROLOL TARTRATE 50 MG TABLET (FP) PO SCH (22:00)
[2018-01-24] MEDS ORDERED: FUROSEMIDE 40 MG/4 ML INJECTABLE VIAL IVPUSH SCH ×2 (06:00→10:00)
[2018-01-24] MEDS ORDERED: PT OWN MED DRAWER 7, Y5N ONE ×3 (06:09→13:29)
[2018-01-24] MEDS: metFORMIN HCL 500 MG TABLET (FP) PO SCH (06:17)
[2018-01-24 06:25] LABS: HEMOGLOBIN 8.5 GM/dL (11.7-16.9); MCH 25.8 pg (25.7-33.7); MCHC 31.7 g/dl (32.0-35.9); MEAN CELL VOLUME 81.6 fl (80-96); PLATELET COUNT 525 K/MM3 (134-434); RBC 3.31 M/mm3 (4.00-5.60); RDW 17.2 % (11.9-15.9); WHITE BLOOD COUNT 11.4 K/mm3 (4.0-10.0)
[2018-01-24 06:55] LABS: CHLORIDE 105 mmol/L (98-107); SODIUM 143 mmol/L (136-145)
[2018-01-24] MEDS ORDERED: sitaGLIPtin PHOSPHATE 25 MG TABLET (FP) PO SCH (07:00)
[2018-01-24 07:11] LABS: ALBUMIN 2.4 g/dl (3.4-5.0); ALK PHOS 129 U/L (45-117); ANION GAP 9 (8-16); BILIRUBIN,TOTAL 0.6 mg/dL (0.2-1.0); BLOOD UREA NITROGEN 25 mg/dL (7-18); CALCIUM 8.2 mg/dL (8.5-10.1); CHOLESTEROL 145 mg/dL (50-200); CO2 29 mmol/L (21-32); CREATININE 0.5 mg/dL (0.7-1.3); GLUCOSE,RANDOM 132 mg/dL (74-106); HDL CHOLESTEROL 21 mg/dL (40-60); MAGNESIUM 2.2 mg/dL (1.8-2.4); SGOT/AST 28 U/L (15-37); SGPT/ALT 95 U/L (12-78); TOT PROT 5.5 g/dl (6.4-8.2); TRIGLYCERIDES 226 mg/dL (35-160)
--- NOTE | 2018-01-24 09:04 | PN ---
Progress Note, Physician Chief Complaint: sob History of Present Illness: feels "much better". no sob on [place] oxygen. not requiring bipap. no palpit, cp, leg swelling ex cigs - Current Medication List Current Medications: Active Medications Acetaminophen (Tylenol -) 650 mg PO Q6H PRN PRN Reason: FEVER Albuterol/Ipratropium (Duoneb -) 1 amp NEB Q6H PRN PRN Reason: SHORTNESS OF BREATH Amino Acids (Prosource No Carb Liquid Pkt) 30 ml PO BID@0800,1730 [facility] Amlodipine Besylate (Norvasc -) 5 mg PO DAILY [facility] Ascorbic Acid (Vitamin C -) 250 mg PO DAILY [facility] Aspirin (Ecotrin -) 81 mg PO DAILY [facility] Atorvastatin Calcium (Lipitor -) 80 mg PO HS [facility] Last Admin: 01/23/18 22:00 Dose: 80 mg Bacitracin (Bacitracin -) 1 applic TP DAILY [facility] Last Admin: 01/23/18 16:27 Dose: 1 applic Clopidogrel Bisulfate (Plavix -) 75 mg PO DAILY [facility] Cyanocobalamin (Vitamin B12 Injection -) 1,000 mcg IM DAILY [facility] Docusate Sodium (Colace -) 300 mg PO HS [facility] Last Admin: 01/23/18 22:00 Dose: 300 mg Ergocalciferol (Drisdol -) 50,000 unit PO Fr@1000 [facility] Furosemide (Lasix Injection -) 40 mg IVPUSH BIDLASIX [facility] Last Admin: 01/24/18 06:17 Dose: 40 mg Heparin Sodium (Porcine) (Heparin -) 1,000 unit IVPUSH PRN PRN PRN Reason: Heparin Heparin Sodium (Porcine) (Heparin -) 5,000 unit IVPUSH PRN PRN PRN Reason: Heparin Last Admin: 01/23/18 23:48 Dose: 5,000 unit Heparin Sodium (Porcine) 25, (000 unit/ Sodium Chloride) 500 mls @ 20 mls/hr IV TITR [facility]; Protocol Last Titration: 01/23/18 23:48 Dose: 1,150 unit/hr, 23 mls/hr Losartan Potassium (Cozaar -) 50 mg PO DAILY [facility] Magnesium Oxide (Mag-Ox -) 400 mg PO BID [facility] Last Admin: 01/23/18 22:00 Dose: 400 mg Metformin HCl (Glucophage -) 500 mg PO DAILY@0700 [facility] Last Admin: 01/24/18 06:17 Dose: 500 mg Metoprolol Tartrate (Lopressor -) 100 mg PO BID [facility] Last Admin: 01/23/18 22:00 Dose: 100 mg Nicotine (Nicoderm Patch -) 21 mg TD DAILY [facility] Last Admin: 01/23/18 16:28 Dose: Not Given Oxycodone HCl (Roxicodone -) 5 mg PO Q6H PRN PRN Reason: PAIN LEVEL 7 - 10 Potassium Chloride (K-Dur -) 20 meq PO BID [facility] Last Admin: 01/23/18 22:00 Dose: 20 meq Senna (Senna -) 1 tab PO HS [facility] Last Admin: 01/23/18 22:00 Dose: 1 tab Sitagliptin Phosphate (Januvia -) 25 mg PO DAILY@0700 [facility] Last Admin: 01/24/18 06:17 Dose: 25 mg - Objective Vital Signs: Vital Signs Temperature 98.6 F 01/24/18 06:00 Pulse Rate 72 01/24/18 06:00 Respiratory Rate 23 01/24/18 06:00 Blood Pressure 129/61 01/24/18 06:00 O2 Sat by Pulse Oximetry (%) 95 01/23/18 21:34 Constitutional: Yes: Well Nourished, No Distress, Calm Cardiovascular: Yes: Regular Rate and Rhythm, S1, S2. No: JVD, Gallop, Murmur Respiratory: Yes: Regular, Diminished (R bases), Rales (L base). No: Accessory Muscle Use Extremities: No: Cold Edema: No Neurological: Yes: Alert, Oriented Psychiatric: No: Agitated Labs: CBC, BMP 01/24/18 05:30 01/24/18 05:30 Assessment/Plan ECG--NSR, normal axis. <1mm ST elevations I/avL, 1mm concave elevation V2= NO CHANGE VS PRIOR 01/18/18 AT [facility]. +pseudonormalization of TWIs previously seen V4 -6 CXR--R effusion (small on my read), no pulm edema. + vascular redistribution on my read CT chest: moderate R, small-mod L effusion Echo 02/04 (today): TDS. nl LVSF. nl RV size/fxn. nl LA size. mild MR. no pericardial effusion. Echo 11/05 ([facility]): nl LV/EF. mild LVH. nl RV. mild LAE. mild MR. no evid pulm HTN. dilated IVC. LHC 11/05: EDP 18, EF 60%. 70-80% mLAD, DEBONING TEAM LEADER of D1 fills from LAD. 80-90% pLCX, DEBONING TEAM LEADER dLCX, DEBONING TEAM LEADER LPL1 fills from RCA. 70-80% pRCA, DEBONING TEAM LEADER mRCA fills from LAD. Carotid dopplers 11/05 ([facility]): RACHID 80-99% (PSV 425, EDV 133), + ulcerated plq seen. LICA nonobstructive. CTA neck 11/05 ([facility]): RACHID <50%. + R vert athero dz, not completely opacified. images reviewed by vascular medicine specialist there, who felt likely soft plaque causing severe RACHID narrowing. tele: NSR acute hypoxic resp failure, acute PE, bilat pleural effusions: -CTA positive for PE. RV normal on echo yesterday. reviewed images with critical care dr deluca--dx is equivocal, but the defect in question is very small and distal and very unlikely to cause pt's severe sx's/hypoxia on presentation. -sx's much more likely sec to ongoing volume overload/effusions. -hemodynamically stable. -responding well and off bipap now, s/p diuresis 40 iv bid yest -labs stable. -change to lasix 80 iv qam, 40 pm (reverse today, since already received lasix 40 in am) -given PE (if present) was provoked, will plan for 3 mo AC per d/w pulmonary. -per d/w dr benson, CTS at [facility], they strongly oppose NOAC in post-CTS pts for first 2 months given prior experiences with uncontrollable postop bleeding-- hence will plan to transition to coumadin. (will stop plavix (given for increasing graft patency) while on AC and do aspirin + coumadin only) -continue UFH gtt as doing -suppl O2 as needed prn sx's/sats -troponins neg, no ischemic ECG changes acute diast CHF: -fluid overload postop CABG. treated with lasix 40 iv BID at [facility]. d/c'd home on 40 qd. -received lasix 40 iv bid yesterday, labs stable -CXR appears clear except for small effusion which is chronic/stable -lasix 80am, 40pm CAD s/p CABG: -01/05 s/p MATHIS to LAD, RAS to OM1, radial artery to LPDA--i.e. all arterial revasc -no signs ACS here -cont aspirin. plavix x12 mo. hi intensity statin (atorva 80), bb as doing HTN: -bp controlled -cont home meds anemia: -postop hgb on discharge from [facility] 8.5 -hgb stable here elevated ALT: -was >200 postop at [facility], trending down -observe labs trend copd: -per dr villasenor team lung nodule: -small nodule, recently had PET which was negative -outpt f/u with pulmonary carotid stenosis (R): -plan is for stent vs CEA electively at [facility], once recovers fully from CABG est'd time spent in chart review, exam of pt, and formulating plan of potentially life-threatening medical problems = 35 min
[2018-01-24] MEDS: AMINO ACIDS/PROTEIN HYDROLYS 30 ML LIQUID.PKT PO SCH ×2 (09:39→17:43)
[2018-01-24] MEDS: BACITRACIN 15 GM TUBE TOPICAL OINTMENT TP SCH (09:40)
[2018-01-24] MEDS: METOPROLOL TARTRATE 50 MG TABLET (FP) PO SCH ×2 (09:41→21:37)
[2018-01-24] MEDS: MAGNESIUM OXIDE 400 MG TABLET (FP) PO SCH ×2 (09:41→21:37)
[2018-01-24] MEDS: POTASSIUM CHLORIDE TABS 20 MEQ TABLET.ER (FP) PO SCH ×2 (09:41→21:37)
[2018-01-24] MEDS: ASCORBIC ACID 250 MG TABLET (FP) PO SCH (09:42)
[2018-01-24] MEDS: NICOTINE 21 MG/24 HOURS TOPICAL PATCH TD SCH (09:43)
[2018-01-24] MEDS: HEPARIN NA (PORCINE) 5,000 UNITS/ML 1ML VIAL IVPUSH PRN (09:46)
[2018-01-24] MEDS: LOSARTAN POTASSIUM 50 MG TABLET (FP) PO SCH (09:50)
[2018-01-24] MEDS: ASPIRIN COATED 81 MG TABLET.EC PO SCH (09:51)
[2018-01-24] MEDS: CYANOCOBALAMIN (VITAMIN B-12) 1000 MCG/1 ML VIAL IM SCH (09:51)
[2018-01-24] MEDS: amLODIPine BESYLATE 5 MG TABLET (FP) PO SCH (09:51)
[2018-01-24] MEDS ORDERED: CLOPIDOGREL BISULFATE 75 MG TABLET (FP) PO SCH (10:00)
--- NOTE | 2018-01-24 10:33 | PN ---
Teaching Attending Note Name of Resident: Priscila Keene ATTENDING PHYSICIAN STATEMENT I saw and evaluated the patient. I reviewed the resident's note and discussed the case with the resident. I agree with the resident's findings and plan as documented. SUBJECTIVE: Patient seen and examined in the ICU. Breathing feels better. Currently off NIPPV. CTA: RUL 8mm pleural based density / bilateral moderate pleural effusions / small distal PE in LLL Intake & Output 01/21/18 01/22/18 01/23/18 01/24/18 23:59 23:59 23:59 23:59 Intake Total 664 Output Total 450 Balance 214 Weight 143 lb 139 lb 9.6 oz Last Vital Signs Temp Pulse Resp BP Pulse Ox 98.6 F 74 23 148/60 95 01/24/18 06:00 01/24/18 08:00 01/24/18 08:00 01/24/18 08:00 01/23/18 21:34 Active Medications Acetaminophen (Tylenol -) 650 mg PO Q6H PRN PRN Reason: FEVER Albuterol/Ipratropium (Duoneb -) 1 amp NEB Q6H PRN PRN Reason: SHORTNESS OF BREATH Amino Acids (Prosource No Carb Liquid Pkt) 30 ml PO BID@0800,1730 [facility] Last Admin: 01/24/18 09:39 Dose: 30 ml Amlodipine Besylate (Norvasc -) 5 mg PO DAILY [facility] Last Admin: 01/24/18 09:51 Dose: 5 mg Ascorbic Acid (Vitamin C -) 250 mg PO DAILY [facility] Last Admin: 01/24/18 09:42 Dose: 250 mg Aspirin (Ecotrin -) 81 mg PO DAILY [facility] Last Admin: 01/24/18 09:51 Dose: 81 mg Atorvastatin Calcium (Lipitor -) 80 mg PO [facility] Last Admin: 01/23/18 22:00 Dose: 80 mg Bacitracin (Bacitracin -) 1 applic TP DAILY [facility] Last Admin: 01/24/18 09:40 Dose: 1 applic Cyanocobalamin (Vitamin B12 Injection -) 1,000 mcg IM DAILY [facility] Last Admin: 01/24/18 09:51 Dose: 1,000 mcg Docusate Sodium (Colace -) 300 mg PO [facility] Last Admin: 01/23/18 22:00 Dose: 300 mg Ergocalciferol (Drisdol -) 50,000 unit PO Fr@1000 [facility] Furosemide (Lasix Injection -) 80 mg IVPUSH DAILY [facility] Furosemide (Lasix Injection -) 40 mg IVPUSH DAILY [facility] Furosemide (Lasix Injection -) 80 mg IVPUSH ONCE ONE Stop: 01/24/18 14:01 Heparin Sodium (Porcine) (Heparin -) 1,000 unit IVPUSH PRN PRN PRN Reason: Heparin Heparin Sodium (Porcine) (Heparin -) 5,000 unit IVPUSH PRN PRN PRN Reason: Heparin Last Admin: 01/24/18 09:46 Dose: 5,000 unit Heparin Sodium (Porcine) 25, (000 unit/ Sodium Chloride) 500 mls @ 20 mls/hr IV TITR [facility]; Protocol Last Titration: 01/24/18 09:46 Dose: 1,300 unit/hr, 26 mls/hr Losartan Potassium (Cozaar -) 50 mg PO DAILY [facility] Last Admin: 01/24/18 09:50 Dose: 50 mg Magnesium Oxide (Mag-Ox -) 400 mg PO BID [facility] Last Admin: 01/24/18 09:41 Dose: 400 mg Metformin HCl (Glucophage -) 500 mg PO DAILY@0700 [facility] Last Admin: 01/24/18 06:17 Dose: 500 mg Metoprolol Tartrate (Lopressor -) 100 mg PO BID [facility] Last Admin: 01/24/18 09:41 Dose: 100 mg Nicotine (Nicoderm Patch -) 21 mg TD DAILY [facility] Last Admin: 01/24/18 09:43 Dose: 21 mg Oxycodone HCl (Roxicodone -) 5 mg PO Q6H PRN PRN Reason: PAIN LEVEL 7 - 10 Potassium Chloride (K-Dur -) 20 meq PO BID [facility] Last Admin: 01/24/18 09:41 Dose: 20 meq Senna (Senna -) 1 tab PO HS [facility] Last Admin: 01/23/18 22:00 Dose: 1 tab Sitagliptin Phosphate (Januvia -) 25 mg PO DAILY@0700 [facility] Last Admin: 01/24/18 06:17 Dose: 25 mg GENERAL: NAD, Awake, alert, and fully oriented HEENT: NC/AT, EOMI, LINDY, sclera anicteric, MMM NECK: soft, no JVD noted, no carotid bruits LUNGS: Bibasilar rales, no wheezing HEART: RRR, normal S1 and S2 without murmur CHEST: Sternotomy site with bandage overlying w/o notable bleeding; did not directly visualize site ABDOMEN: Soft, nontender, not distended, normoactive bowel sounds, no guarding. No hepatomegaly EXTREMITIES: 2+ DP pulses, warm, well-perfused. No peripheral edema. No calf tenderness. LUE band noted near wrist w/o bleeding (site of harvest) PSYCHIATRIC: Cooperative. Good eye contact. Appropriate mood and affect. SKIN: Warm, dry, normal turgor, no rashes or lesions noted. Laboratory Results - last 24 hr 01/23/18 01/23/18 01/23/18 12:00 12:00 16:11 WBC 12.9 H RBC 3.42 L Hgb 8.8 L Hct 27.9 L D MCV 81.7 MCH 25.6 L MCHC 31.4 L RDW 17.0 H Plt Count 618 H D MPV 9.6 Absolute Neuts (auto) 10.4 Neutrophils % 80.7 D Neutrophils % (Manual) 80.0 Band Neutrophils % 0.0 Lymphocytes % 9.7 D Lymphocytes % (Manual) 12.0 Monocytes % 7.1 Monocytes % (Manual) 7 Eosinophils % 1.7 Eosinophils % (Manual) 1.0 Basophils % 0.8 Basophils % (Manual) 0.0 Myelocytes % (Man) 0 Promyelocytes % (Man) 0 Blast Cells % (Manual) 0 Nucleated RBC % 1 H Metamyelocytes 0 Hypochromia 2+ Platelet Estimate Increased Polychromasia 3+ Poikilocytosis 0 Anisocytosis 3+ Microcytosis 2+ Macrocytosis 0 PTT (Actin FS) D-Dimer 7565 H Anticoagulation Therapy Puncture Site ABG pH ABG pCO2 at Pt Temp ABG pO2 at Pt Temp ABG HCO3 ABG O2 Sat (Measured) ABG O2 Content ABG Base Excess Gerson Test O2 Delivery Device Oxygen Flow Rate Vent Mode Vent Rate Mechanical Rate Pressure Support Vent Sodium 139 Potassium 5.0 D Chloride 103 Carbon Dioxide 25 Anion Gap 11 BUN 23 H Creatinine 0.8 Creat Clearance w eGFR > 60 Random Glucose 138 H Hemoglobin A1c % Calcium 8.5 Magnesium Total Bilirubin 0.9 AST 37 D ALT 132 H D Alkaline Phosphatase 160 H Creatine Kinase 305 Creatine Kinase Index 0.8 CK-MB (CK-2) 2.58 Troponin I 0.05 D B-Natriuretic Peptide 2792.89 H Total Protein 6.3 L Albumin 2.6 L Triglycerides Cholesterol Total LDL Cholesterol HDL Cholesterol TSH Free T4 01/23/18 01/23/18 01/23/18 16:40 18:55 22:30 WBC RBC Hgb Hct MCV MCH MCHC RDW Plt Count MPV Absolute Neuts (auto) Neutrophils % Neutrophils % (Manual) Band Neutrophils % Lymphocytes % Lymphocytes % (Manual) Monocytes % Monocytes % (Manual) Eosinophils % Eosinophils % (Manual) Basophils % Basophils % (Manual) Myelocytes % (Man) Promyelocytes % (Man) Blast Cells % (Manual) Nucleated RBC % Metamyelocytes Hypochromia Platelet Estimate Polychromasia Poikilocytosis Anisocytosis Microcytosis Macrocytosis PTT (Actin FS) 35.0 D-Dimer Anticoagulation Therapy No Result Required. Puncture Site Right radial ABG pH 7.47 H ABG pCO2 at Pt Temp 38.5 ABG pO2 at Pt Temp 73.4 L ABG HCO3 27.8 H ABG O2 Sat (Measured) 94.8 ABG O2 Content 12.3 L ABG Base Excess 4.4 H Gerson Test Positive O2 Delivery Device Bipap Oxygen Flow Rate 35% Vent Mode No Result Required. Vent Rate No Result Required. Mechanical Rate No Result Required. Pressure Support Vent No Result Required. Sodium Potassium Chloride Carbon Dioxide Anion Gap BUN Creatinine Creat Clearance w eGFR Random Glucose Hemoglobin A1c % Calcium Magnesium Total Bilirubin AST ALT Alkaline Phosphatase Creatine Kinase 251 Creatine Kinase Index 0.8 CK-MB (CK-2) 2.18 Troponin I 0.04 B-Natriuretic Peptide Total Protein Albumin Triglycerides Cholesterol Total LDL Cholesterol HDL Cholesterol TSH Free T4 01/24/18 01/24/18 01/24/18 05:30 05:30 05:30 WBC 11.4 H RBC 3.31 L Hgb 8.5 L Hct 27.0 L MCV 81.6 MCH 25.8 MCHC 31.7 L RDW 17.2 H Plt Count 525 H MPV 9.0 Absolute Neuts (auto) Neutrophils % Neutrophils % (Manual) Band Neutrophils % Lymphocytes % Lymphocytes % (Manual) Monocytes % Monocytes % (Manual) Eosinophils % Eosinophils % (Manual) Basophils % Basophils % (Manual) Myelocytes % (Man) Promyelocytes % (Man) Blast Cells % (Manual) Nucleated RBC % Metamyelocytes Hypochromia Platelet Estimate Polychromasia Poikilocytosis Anisocytosis Microcytosis Macrocytosis PTT (Actin FS) D-Dimer Anticoagulation Therapy Puncture Site ABG pH ABG pCO2 at Pt Temp ABG pO2 at Pt Temp ABG HCO3 ABG O2 Sat (Measured) ABG O2 Content ABG Base Excess Gerson Test O2 Delivery Device Oxygen Flow Rate Vent Mode Vent Rate Mechanical Rate Pressure Support Vent Sodium 143 Potassium 4.0 Chloride 105 Carbon Dioxide 29 Anion Gap 9 BUN 25 H Creatinine 0.5 L Creat Clearance w eGFR > 60 Random Glucose 132 H Hemoglobin A1c % 5.7 D Calcium 8.2 L Magnesium 2.2 Total Bilirubin 0.6 AST 28 D ALT 95 H D Alkaline Phosphatase 129 H D Creatine Kinase Creatine Kinase Index CK-MB (CK-2) Troponin I B-Natriuretic Peptide Total Protein 5.5 L Albumin 2.4 L Triglycerides 226 H D Cholesterol 145 Total LDL Cholesterol 100 HDL Cholesterol 21 L D TSH 2.19 D Free T4 1.25 H //18 05:30 WBC RBC Hgb Hct MCV MCH MCHC RDW Plt Count MPV Absolute Neuts (auto) Neutrophils % Neutrophils % (Manual) Band Neutrophils % Lymphocytes % Lymphocytes % (Manual) Monocytes % Monocytes % (Manual) Eosinophils % Eosinophils % (Manual) Basophils % Basophils % (Manual) Myelocytes % (Man) Promyelocytes % (Man) Blast Cells % (Manual) Nucleated RBC % Metamyelocytes Hypochromia Platelet Estimate Polychromasia Poikilocytosis Anisocytosis Microcytosis Macrocytosis PTT (Actin FS) 30.0 D-Dimer Anticoagulation Therapy Puncture Site ABG pH ABG pCO2 at Pt Temp ABG pO2 at Pt Temp ABG HCO3 ABG O2 Sat (Measured) ABG O2 Content ABG Base Excess Gerson Test O2 Delivery Device Oxygen Flow Rate Vent Mode Vent Rate Mechanical Rate Pressure Support Vent Sodium Potassium Chloride Carbon Dioxide Anion Gap BUN Creatinine Creat Clearance w eGFR Random Glucose Hemoglobin A1c % Calcium Magnesium Total Bilirubin AST ALT Alkaline Phosphatase Creatine Kinase Creatine Kinase Index CK-MB (CK-2) Troponin I B-Natriuretic Peptide Total Protein Albumin Triglycerides Cholesterol Total LDL Cholesterol HDL Cholesterol TSH Free T4 ASSESSMENT/PLAN: Distal LLL PE: likely provoked RUL subpleural nodule (?) Loculated fluid Recent CABG 1 week ago HTN Bilateral pleural effusions Do not suspect PNA HPL Carotid stenosis DM Lasix AC with IV Heparin and transition to Coumadin (start today) O2 as needed Daily weight Strict I & O Monitor off ABX Incentive Spirometry Outpatient follow up of RUL nodule NIPPV support if needed Dr Lomeli Critical care time spent in reviewing chart, evaluating patient and formulating plan - 36 minutes.
--- NOTE | 2018-01-24 11:46 | PN ---
Physical Exam: SUBJECTIVE: Patient seen and examined resting in bed NAD. afebrile and hemodynamically stable. was transferred to ICU overnight due to cp/sob found to have small PE. He currenlty denies cp, sob, cough, back pain, n/v, abd pain, h/a. OBJECTIVE: Vital Signs Period Temp Pulse Resp BP Sys/Fine Pulse Ox Last 24 Hr 97.5 F-98.9 F 62-94 16-35 117-181/58-87 92-100 GENERAL: The patient is awake, alert, and fully oriented, in no acute distress. HEAD: Normal with no signs of trauma. EYES: PERRL, extraocular movements intact, sclera anicteric, conjunctiva clear. No ptosis. ENT: moist mucous membranes. NECK: Trachea midline, full range of motion, supple. LUNGS: bibasilar ronchi HEART: Regular rate and rhythm, S1, S2 ABDOMEN: Soft, nontender, nondistended, normoactive bowel sounds, no guarding, no rebound, no masses. EXTREMITIES: 2+ pulses, warm, well-perfused, no edema. NEUROLOGICAL: Cranial nerves II through XII grossly intact. Normal speech, gait not observed. PSYCH: Normal mood, normal affect. SKIN: Warm, dry. Sternotomy site with clean bandage Laboratory Results - last 24 hr 01/23/18 01/23/18 01/23/18 12:00 12:00 16:11 WBC 12.9 H RBC 3.42 L Hgb 8.8 L Hct 27.9 L D MCV 81.7 MCH 25.6 L MCHC 31.4 L RDW 17.0 H Plt Count 618 H D MPV 9.6 Absolute Neuts (auto) 10.4 Neutrophils % 80.7 D Neutrophils % (Manual) 80.0 Band Neutrophils % 0.0 Lymphocytes % 9.7 D Lymphocytes % (Manual) 12.0 Monocytes % 7.1 Monocytes % (Manual) 7 Eosinophils % 1.7 Eosinophils % (Manual) 1.0 Basophils % 0.8 Basophils % (Manual) 0.0 Myelocytes % (Man) 0 Promyelocytes % (Man) 0 Blast Cells % (Manual) 0 Nucleated RBC % 1 H Metamyelocytes 0 Hypochromia 2+ Platelet Estimate Increased Polychromasia 3+ Poikilocytosis 0 Anisocytosis 3+ Microcytosis 2+ Macrocytosis 0 PTT (Actin FS) D-Dimer 7565 H Anticoagulation Therapy Puncture Site ABG pH ABG pCO2 at Pt Temp ABG pO2 at Pt Temp ABG HCO3 ABG O2 Sat (Measured) ABG O2 Content ABG Base Excess Gerson Test O2 Delivery Device Oxygen Flow Rate Vent Mode Vent Rate Mechanical Rate Pressure Support Vent Sodium 139 Potassium 5.0 D Chloride 103 Carbon Dioxide 25 Anion Gap 11 BUN 23 H Creatinine 0.8 Creat Clearance w eGFR > 60 Random Glucose 138 H Hemoglobin A1c % Calcium 8.5 Magnesium Total Bilirubin 0.9 AST 37 D ALT 132 H D Alkaline Phosphatase 160 H Creatine Kinase 305 Creatine Kinase Index 0.8 CK-MB (CK-2) 2.58 Troponin I 0.05 D B-Natriuretic Peptide 2792.89 H Total Protein 6.3 L Albumin 2.6 L Triglycerides Cholesterol Total LDL Cholesterol HDL Cholesterol TSH Free T4 01/23/18 01/23/18 01/23/18 16:40 18:55 22:30 WBC RBC Hgb Hct MCV MCH MCHC RDW Plt Count MPV Absolute Neuts (auto) Neutrophils % Neutrophils % (Manual) Band Neutrophils % Lymphocytes % Lymphocytes % (Manual) Monocytes % Monocytes % (Manual) Eosinophils % Eosinophils % (Manual) Basophils % Basophils % (Manual) Myelocytes % (Man) Promyelocytes % (Man) Blast Cells % (Manual) Nucleated RBC % Metamyelocytes Hypochromia Platelet Estimate Polychromasia Poikilocytosis Anisocytosis Microcytosis Macrocytosis PTT (Actin FS) 35.0 D-Dimer Anticoagulation Therapy No Result Required. Puncture Site Right radial ABG pH 7.47 H ABG pCO2 at Pt Temp 38.5 ABG pO2 at Pt Temp 73.4 L ABG HCO3 27.8 H ABG O2 Sat (Measured) 94.8 ABG O2 Content 12.3 L ABG Base Excess 4.4 H Gerson Test Positive O2 Delivery Device Bipap Oxygen Flow Rate 35% Vent Mode No Result Required. Vent Rate No Result Required. Mechanical Rate No Result Required. Pressure Support Vent No Result Required. Sodium Potassium Chloride Carbon Dioxide Anion Gap BUN Creatinine Creat Clearance w eGFR Random Glucose Hemoglobin A1c % Calcium Magnesium Total Bilirubin AST ALT Alkaline Phosphatase Creatine Kinase 251 Creatine Kinase Index 0.8 CK-MB (CK-2) 2.18 Troponin I 0.04 B-Natriuretic Peptide Total Protein Albumin Triglycerides Cholesterol Total LDL Cholesterol HDL Cholesterol TSH Free T4 01/24/18 01/24/18 01/24/18 05:30 05:30 05:30 WBC 11.4 H RBC 3.31 L Hgb 8.5 L Hct 27.0 L MCV 81.6 MCH 25.8 MCHC 31.7 L RDW 17.2 H Plt Count 525 H MPV 9.0 Absolute Neuts (auto) Neutrophils % Neutrophils % (Manual) Band Neutrophils % Lymphocytes % Lymphocytes % (Manual) Monocytes % Monocytes % (Manual) Eosinophils % Eosinophils % (Manual) Basophils % Basophils % (Manual) Myelocytes % (Man) Promyelocytes % (Man) Blast Cells % (Manual) Nucleated RBC % Metamyelocytes Hypochromia Platelet Estimate Polychromasia Poikilocytosis Anisocytosis Microcytosis Macrocytosis PTT (Actin FS) D-Dimer Anticoagulation Therapy Puncture Site ABG pH ABG pCO2 at Pt Temp ABG pO2 at Pt Temp ABG HCO3 ABG O2 Sat (Measured) ABG O2 Content ABG Base Excess Gerson Test O2 Delivery Device Oxygen Flow Rate Vent Mode Vent Rate Mechanical Rate Pressure Support Vent Sodium 143 Potassium 4.0 Chloride 105 Carbon Dioxide 29 Anion Gap 9 BUN 25 H Creatinine 0.5 L Creat Clearance w eGFR > 60 Random Glucose 132 H Hemoglobin A1c % 5.7 D Calcium 8.2 L Magnesium 2.2 Total Bilirubin 0.6 AST 28 D ALT 95 H D Alkaline Phosphatase 129 H D Creatine Kinase Creatine Kinase Index CK-MB (CK-2) Troponin I B-Natriuretic Peptide Total Protein 5.5 L Albumin 2.4 L Triglycerides 226 H D Cholesterol 145 Total LDL Cholesterol 100 HDL Cholesterol 21 L D TSH 2.19 D Free T4 1.25 H 01/24/18 05:30 WBC RBC Hgb Hct MCV MCH MCHC RDW Plt Count MPV Absolute Neuts (auto) Neutrophils % Neutrophils % (Manual) Band Neutrophils % Lymphocytes % Lymphocytes % (Manual) Monocytes % Monocytes % (Manual) Eosinophils % Eosinophils % (Manual) Basophils % Basophils % (Manual) Myelocytes % (Man) Promyelocytes % (Man) Blast Cells % (Manual) Nucleated RBC % Metamyelocytes Hypochromia Platelet Estimate Polychromasia Poikilocytosis Anisocytosis Microcytosis Macrocytosis PTT (Actin FS) 30.0 D-Dimer Anticoagulation Therapy Puncture Site ABG pH ABG pCO2 at Pt Temp ABG pO2 at Pt Temp ABG HCO3 ABG O2 Sat (Measured) ABG O2 Content ABG Base Excess Gerson Test O2 Delivery Device Oxygen Flow Rate Vent Mode Vent Rate Mechanical Rate Pressure Support Vent Sodium Potassium Chloride Carbon Dioxide Anion Gap BUN Creatinine Creat Clearance w eGFR Random Glucose Hemoglobin A1c % Calcium Magnesium Total Bilirubin AST ALT Alkaline Phosphatase Creatine Kinase Creatine Kinase Index CK-MB (CK-2) Troponin I B-Natriuretic Peptide Total Protein Albumin Triglycerides Cholesterol Total LDL Cholesterol HDL Cholesterol TSH Free T4 Active Medications Generic Name Dose Route Start Last Admin Trade Name Freq PRN Reason Stop Dose Admin Acetaminophen 650 mg 01/23/18 15:54 Tylenol - PO Q6H PRN FEVER Albuterol/Ipratropium 1 amp 01/23/18 15:54 Duoneb - NEB Q6H PRN SHORTNESS OF BREATH Amino Acids 30 ml 01/24/18 08:00 01/24/18 09:39 Prosource No Carb Liquid Pkt PO 30 ml BID@0800,1730 [facility] Administration Amlodipine Besylate 5 mg 01/24/18 10:00 01/24/18 09:51 Norvasc - PO 5 mg DAILY [facility] Administration Ascorbic Acid 250 mg 01/24/18 10:00 01/24/18 09:42 Vitamin C - PO 250 mg DAILY [facility] Administration Aspirin 81 mg 01/24/18 10:00 01/24/18 09:51 Ecotrin - PO 81 mg DAILY [facility] Administration Atorvastatin Calcium 80 mg 01/23/18 22:00 01/23/18 22:00 Lipitor - PO 80 mg HS [facility] Administration Bacitracin 1 applic 01/23/18 16:00 01/24/18 09:40 Bacitracin - TP 1 applic DAILY [facility] Administration Cyanocobalamin 1,000 mcg 01/24/18 10:00 01/24/18 09:51 Vitamin B12 Injection - IM 1,000 mcg DAILY [facility] Administration Docusate Sodium 300 mg 01/23/18 22:00 01/23/18 22:00 Colace - PO 300 mg HS [facility] Administration Ergocalciferol 50,000 unit 01/30/18 10:00 Drisdol - PO Fr@1000 [facility] Furosemide 80 mg 01/25/18 06:00 Lasix Injection - IVPUSH DAILY [facility] Furosemide 40 mg 01/25/18 14:00 Lasix Injection - IVPUSH DAILY [facility] Furosemide 80 mg 01/24/18 14:00 Lasix Injection - IVPUSH 01/24/18 14:01 ONCE ONE Heparin Sodium (Porcine) 1,000 unit 01/23/18 18:23 Heparin - IVPUSH PRN PRN Heparin Heparin Sodium (Porcine) 5,000 unit 01/23/18 18:23 01/24/18 09:46 Heparin - IVPUSH 5,000 unit PRN PRN Administration Heparin Heparin Sodium (Porcine) 25, 500 mls @ 20 mls/hr 01/23/18 18:30 01/24/18 09: 46 000 unit/ Sodium Chloride IV 1,300 unit/hr TITR [facility] 26 mls/hr Titration Protocol 1,000 UNIT/HR Losartan Potassium 50 mg 01/24/18 10:00 01/24/18 09:50 Cozaar - PO 50 mg DAILY [facility] Administration Magnesium Oxide 400 mg 01/23/18 22:00 01/24/18 09:41 Mag-Ox - PO 400 mg BID [facility] Administration Metformin HCl 500 mg 01/24/18 07:00 01/24/18 06:17 Glucophage - PO 500 mg DAILY@0700 [facility] Administration Metoprolol Tartrate 100 mg 01/23/18 22:00 01/24/18 09:41 Lopressor - PO 100 mg BID [facility] Administration Nicotine 21 mg 01/23/18 16:00 01/24/18 09:43 Nicoderm Patch - TD 21 mg DAILY [facility] Administration Oxycodone HCl 5 mg 01/23/18 15:54 Roxicodone - PO Q6H PRN PAIN LEVEL 7 - 10 Potassium Chloride 20 meq 01/23/18 22:00 01/24/18 09:41 K-Dur - PO 20 meq BID [facility] Administration Senna 1 tab 01/23/18 22:00 01/23/18 22:00 Senna - PO 1 tab HS [facility] Administration Sitagliptin Phosphate 25 mg 01/24/18 07:00 01/24/18 06:17 Januvia - PO 25 mg DAILY@0700 [facility] Administration Warfarin Sodium 2.5 mg 01/24/18 18:00 Coumadin - PO DAILY@1800 [facility] ASSESSMENT/PLAN: 67yo M with history of CAD [facility]; discharged after 1 day), DM, CVA, and HTN who was seen for acute shortness of breath and chest pain. Neuro: -aao x 3, at baseline Pulm: *Acute hypoxic respiratory failure -currently satting well on NC -likely due to very small reserve in setting of b/l moderate pleural effusion and recent CABG -aggressive intervention with pightail not necessary, expect resorption with time and iV lasix 40 bid -duoneb *acute vs subacute PE -CTA confirmed small subsegmental R pulm artery PE; uncertain whether this contributed to last nights symptoms or whether it is acute -TTE last night showed normal rv/lv -Hemodynamically stable -hep gtt bridge to coum 2.5 d; f/u INR -incentive spirometry -f/u LE duplex Cardio *CAD s/p CABG 1 w ago at [facility] -no evidence of ACS; cardio on case -weight same as on [place] d/c 142 lb -BNP increased from dc 114 to 2700 -Oxycodone 5 q6h PRN *Incidental RUL subpleural nodule -possibly a smal pocket of loculated fluid -f/u outpatient *HTN -controlled with [id number] d, Norvasc 5mg d, Lopressor 100mg BID FEN no ivf lytes stable diabetic low na diet hep, diet icu Problem List - Problems (1) ASHD (arteriosclerotic heart disease) Code(s): I25.10 - ATHSCL HEART DISEASE OF [place] CORONARY ARTERY W/O ANG PCTRS (2) Acute hypoxemic respiratory failure Code(s): J96.01 - ACUTE RESPIRATORY FAILURE WITH HYPOXIA (3) Pulmonary embolism Code(s): I26.99 - OTHER PULMONARY EMBOLISM WITHOUT ACUTE COR PULMONALE (4) S/P CABG (coronary artery bypass graft) Code(s): Z95.1 - PRESENCE OF AORTOCORONARY BYPASS GRAFT (5) Diabetes mellitus Code(s): E11.9 - TYPE 2 DIABETES MELLITUS WITHOUT COMPLICATIONS Visit type - Emergency Visit Emergency Visit: Yes ED Registration Date: 01/23/18 Care time: The patient presented to the Emergency Department on the above date and was hospitalized for further evaluation of their emergent condition. - New Patient This patient is new to me today: Yes Date on this admission: 01/24/18 - Critical Care Critical Care patient: Yes Total Critical Care Time (in minutes): 40 Critical Care Statement: The care of this patient involved high complexity decision making to prevent further life threatening deterioration of the patient 's condition and/or to evaluate & treat vital organ system(s) failure or risk of failure. - Discharge Referral Referred to [facility] No
[2018-01-24] MEDS ORDERED: FUROSEMIDE 40 MG/4 ML INJECTABLE VIAL IVPUSH ONE (14:00)
--- NOTE | 2018-01-24 15:33 | CONSULT ---
Consult - text type - Consultation Consultation Note: HEMATOLOGY CONSULT NOTE : 67yo M with history of CAD s/p recent CABG at [facility] (1 week ago; discharged after 1 day), DM, CVA, and HTN who came in for SOB. It seems that this was a combination of fluid overlad and possible small subsegmental PE. No h/o of blood clots in the past. REVIEW OF SYSTEMS: CONSTITUTIONAL: Absent: fever, chills, diaphoresis, generalized weakness, malaise, loss of appetite, weight change HEENT: Absent: rhinorrhea, nasal congestion, throat pain, throat swelling, difficulty swallowing, mouth swelling, ear pain, eye pain, visual changes CARDIOVASCULAR: Present: Chest discomfort Absent: syncope, palpitations, irregular heart rate, lightheadedness, peripheral edema RESPIRATORY: Present: Cough, shortness of breath, orthopnea Absent: dyspnea with exertion, wheezing, stridor, hemoptysis GASTROINTESTINAL: Absent: abdominal pain, abdominal distension, nausea, vomiting, diarrhea, constipation, melena, hematochezia HEMATOLOGIC/IMMUNOLOGIC: Absent: easy bleeding, easy bruising, lymphadenopathy, frequent infections PHYSICAL EXAMINATION Vital Signs Period Temp Pulse Resp BP Sys/Fine Pulse Ox Last 24 Hr 97.9 F-98.9 F 62-94 20-35 116-148/58-87 95-100 GENERAL: NAD, Awake, alert, and fully oriented HEENT: NC/AT, EOMI, LINDY, sclera anicteric, MMM NECK: soft, no JVD noted, no carotid bruits LUNGS: Slight rales noted on R>L lower base, however otherwise CTA. No accessory muscle use, on NRB mask spO2 100% HEART: RRR, normal S1 and S2 without murmur CHEST: Sternotomy site with bandage overlying w/o notable bleeding; did not directly visualize site ABDOMEN: Soft, nontender, not distended, normoactive bowel sounds, no guarding. No hepatomegaly EXTREMITIES: 2+ DP pulses, warm, well-perfused. No peripheral edema. No calf tenderness. LUE band noted near wrist w/o bleeding (site of harvest) PSYCHIATRIC: Cooperative. Good eye contact. Appropriate mood and affect. SKIN: Warm, dry, normal turgor, no rashes or lesions noted. Current Medications Generic Name Dose Route Start Last Admin Trade Name Freq PRN Reason Stop Dose Admin Acetaminophen 650 mg 01/23/18 15:54 Tylenol - PO Q6H PRN FEVER Albuterol/Ipratropium 1 amp 01/23/18 15:54 Duoneb - NEB Q6H PRN SHORTNESS OF BREATH Amino Acids 30 ml 01/24/18 08:00 01/24/18 09:39 Prosource No Carb Liquid Pkt PO 30 ml BID@0800,1730 [facility] Administration Amlodipine Besylate 5 mg 01/24/18 10:00 01/24/18 09:51 Norvasc - PO 5 mg DAILY [facility] Administration Ascorbic Acid 250 mg 01/24/18 10:00 01/24/18 09:42 Vitamin C - PO 250 mg DAILY [facility] Administration Aspirin 81 mg 01/24/18 10:00 01/24/18 09:51 Ecotrin - PO 81 mg DAILY [facility] Administration Atorvastatin Calcium 80 mg 01/23/18 22:00 01/23/18 22:00 Lipitor - PO 80 mg HS [facility] Administration Bacitracin 1 applic 01/23/18 16:00 01/24/18 09:40 Bacitracin - TP 1 applic DAILY [facility] Administration Cyanocobalamin 1,000 mcg 01/24/18 10:00 01/24/18 09:51 Vitamin B12 Injection - IM 1,000 mcg DAILY [facility] Administration Docusate Sodium 300 mg 01/23/18 22:00 01/23/18 22:00 Colace - PO 300 mg HS [facility] Administration Ergocalciferol 50,000 unit 01/30/18 10:00 Drisdol - PO Fr@1000 [facility] Furosemide 80 mg 01/25/18 06:00 Lasix Injection - IVPUSH DAILY [facility] Furosemide 40 mg 01/25/18 14:00 Lasix Injection - IVPUSH DAILY [facility] Heparin Sodium (Porcine) 1,000 unit 01/23/18 18:23 Heparin - IVPUSH PRN PRN Heparin Heparin Sodium (Porcine) 5,000 unit 01/23/18 18:23 01/24/18 09:46 Heparin - IVPUSH 5,000 unit PRN PRN Administration Heparin Heparin Sodium (Porcine) 25, 500 mls @ 20 mls/hr 01/23/18 18:30 01/24/18 09: 46 000 unit/ Sodium Chloride IV 1,300 unit/hr TITR SAG[facility] 26 mls/hr Titration Protocol 1,000 UNIT/HR Losartan Potassium 50 mg 01/24/18 10:00 01/24/18 09:50 Cozaar - PO 50 mg DAILY [facility] Administration Magnesium Oxide 400 mg 01/23/18 22:00 01/24/18 09:41 Mag-Ox - PO 400 mg BID [facility] Administration Metformin HCl 500 mg 01/24/18 07:00 01/24/18 06:17 Glucophage - PO 500 mg DAILY@0700 [facility] Administration Metoprolol Tartrate 100 mg 01/23/18 22:00 01/24/18 09:41 Lopressor - PO 100 mg BID [facility] Administration Nicotine 21 mg 01/23/18 16:00 01/24/18 09:43 Nicoderm Patch - TD 21 mg DAILY [facility] Administration Oxycodone HCl 5 mg 01/23/18 15:54 Roxicodone - PO Q6H PRN PAIN LEVEL 7 - 10 Potassium Chloride 20 meq 01/23/18 22:00 01/24/18 09:41 K-Dur - PO 20 meq BID [facility] Administration Senna 1 tab 01/23/18 22:00 01/23/18 22:00 Senna - PO 1 tab HS [facility] Administration Sitagliptin Phosphate 25 mg 01/24/18 07:00 01/24/18 06:17 Januvia - PO 25 mg DAILY@0700 [facility] Administration Warfarin Sodium 2.5 mg 01/24/18 18:00 Coumadin - PO DAILY@1800 [facility] CBC, BMP 01/24/18 05:30 01/24/18 05:30 ASSESSMENT/PLAN: Subsegmental PE due to recent surgery : -Agree with hepain but can switch to Lovenox at 1mg/kg bid or 1.5 mg/kg q day -Coumadin is acceptable -Apiixaban if cardiology agrees in which case he will not need bridging. -will need 3 months of AC
[2018-01-24] MEDS: WARFARIN NA 2.5 MG TABLET (FP) PO SCH (17:43)
[2018-01-24] MEDS: HEPARIN - 25,000 UNIT in SODIUM CHLORIDE 495 ML IV SCH (19:00)
[2018-01-24 21:24] VITALS: BMI 23.8
--- NOTE | 2018-01-24 21:35 | PN ---
Progress Note, Physician Chief Complaint: Pulmonary Embolism Pleural effusion S/P CABG History of Present Illness: NAD Family at bedside SpO2 97% on RA On heparin drip, starting warfarin today - Current Medication List Current Medications: Active Medications Acetaminophen (Tylenol -) 650 mg PO Q6H PRN PRN Reason: FEVER Albuterol/Ipratropium (Duoneb -) 1 amp NEB Q6H PRN PRN Reason: SHORTNESS OF BREATH Amino Acids (Prosource No Carb Liquid Pkt) 30 ml PO BID@0800,1730 [facility] Last Admin: 01/24/18 17:43 Dose: 30 ml Amlodipine Besylate (Norvasc -) 5 mg PO DAILY [facility] Last Admin: 01/24/18 09:51 Dose: 5 mg Ascorbic Acid (Vitamin C -) 250 mg PO DAILY [facility] Last Admin: 01/24/18 09:42 Dose: 250 mg Aspirin (Ecotrin -) 81 mg PO DAILY [facility] Last Admin: 01/24/18 09:51 Dose: 81 mg Atorvastatin Calcium (Lipitor -) 80 mg PO [facility] Last Admin: 01/23/18 22:00 Dose: 80 mg Bacitracin (Bacitracin -) 1 applic TP DAILY [facility] Last Admin: 01/24/18 09:40 Dose: 1 applic Cyanocobalamin (Vitamin B12 Injection -) 1,000 mcg IM DAILY [facility] Last Admin: 01/24/18 09:51 Dose: 1,000 mcg Docusate Sodium (Colace -) 300 mg PO HS [facility] Last Admin: 01/23/18 22:00 Dose: 300 mg Ergocalciferol (Drisdol -) 50,000 unit PO Fr@1000 [facility] Furosemide (Lasix Injection -) 80 mg IVPUSH DAILY [facility] Furosemide (Lasix Injection -) 40 mg IVPUSH DAILY [facility] Heparin Sodium (Porcine) (Heparin -) 1,000 unit IVPUSH PRN PRN PRN Reason: Heparin Heparin Sodium (Porcine) (Heparin -) 5,000 unit IVPUSH PRN PRN PRN Reason: Heparin Last Admin: 01/24/18 09:46 Dose: 5,000 unit Heparin Sodium (Porcine) 25, (000 unit/ Sodium Chloride) 500 mls @ 20 mls/hr IV TITR SAGAR; Protocol Last Titration: 01/24/18 09:46 Dose: 1,300 unit/hr, 26 mls/hr Losartan Potassium (Cozaar -) 50 mg PO DAILY [facility] Last Admin: 01/24/18 09:50 Dose: 50 mg Magnesium Oxide (Mag-Ox -) 400 mg PO BID [facility] Last Admin: 01/24/18 09:41 Dose: 400 mg Metformin HCl (Glucophage -) 500 mg PO DAILY@0700 [facility] Last Admin: 01/24/18 06:17 Dose: 500 mg Metoprolol Tartrate (Lopressor -) 100 mg PO BID [facility] Last Admin: 01/24/18 09:41 Dose: 100 mg Nicotine (Nicoderm Patch -) 21 mg TD DAILY [facility] Last Admin: 01/24/18 09:43 Dose: 21 mg Oxycodone HCl (Roxicodone -) 5 mg PO Q6H PRN PRN Reason: PAIN LEVEL 7 - 10 Potassium Chloride (K-Dur -) 20 meq PO BID [facility] Last Admin: 01/24/18 09:41 Dose: 20 meq Senna (Senna -) 1 tab PO HS [facility] Last Admin: 01/23/18 22:00 Dose: 1 tab Sitagliptin Phosphate (Januvia -) 25 mg PO DAILY@0700 [facility] Last Admin: 01/24/18 06:17 Dose: 25 mg Warfarin Sodium (Coumadin -) 2.5 mg PO DAILY@1800 [facility] Last Admin: 01/24/18 17:43 Dose: 2.5 mg - Objective Vital Signs: Vital Signs Temperature 98.2 F 01/24/18 19:00 Pulse Rate 77 01/24/18 21:00 Respiratory Rate 22 01/24/18 21:00 Blood Pressure 123/89 01/24/18 21:00 O2 Sat by Pulse Oximetry (%) 100 01/24/18 20:59 Constitutional: Yes: Well Nourished, No Distress, Calm Cardiovascular: Yes: Regular Rate and Rhythm Respiratory: Yes: Regular Gastrointestinal: Yes: Normal Bowel Sounds, Soft Musculoskeletal: Yes: WNL Extremities: Yes: WNL Edema: No Peripheral Pulses WNL: Yes Neurological: Yes: Alert, Oriented Psychiatric: Yes: Alert, Oriented Labs: CBC, BMP 01/24/18 05:30 01/24/18 05:30 Problem List - Problems (1) Pulmonary edema Assessment/Plan: -seen by cardiology -On Furosemide 80 QAM and 40 QPM -CXR in AM Code(s): J81.1 - CHRONIC PULMONARY EDEMA Qualifiers: Chronicity: acute Qualified Code(s): J81.0 - Acute pulmonary edema (2) Pulmonary embolism Assessment/Plan: -Seen by Hematology -On heparin drip -Started on Warfarin -INR in AM Code(s): I26.99 - OTHER PULMONARY EMBOLISM WITHOUT ACUTE COR PULMONALE (3) S/P CABG (coronary artery bypass graft) Code(s): Z95.1 - PRESENCE OF AORTOCORONARY BYPASS GRAFT (4) Anemia Assessment/Plan: -check stool OB, Iron profile and B12 Code(s): D64.9 - ANEMIA, UNSPECIFIED (5) CHF (congestive heart failure) Assessment/Plan: -seen by cardiology -On Furosemide 80 QAM and 40 QPM -CXR in AM Code(s): I50.9 - HEART FAILURE, UNSPECIFIED (6) Diabetes mellitus Assessment/Plan: -a1c 5.7 -d/c Januvia Code(s): E11.9 - TYPE 2 DIABETES MELLITUS WITHOUT COMPLICATIONS Assessment/Plan see problem list
[2018-01-24] MEDS: ATORVASTATIN CA 80 MG TABLET (FP) PO SCH (21:37)
[2018-01-24] MEDS: SENNOSIDES 8.6MG TABLET (FP) PO SCH (21:37)
[2018-01-24] MEDS: DOCUSATE SODIUM 100 MG CAPSULE (FP) PO SCH (21:38)
[2018-01-25] MEDS ORDERED: FUROSEMIDE 40 MG/4 ML INJECTABLE VIAL ONE (04:22)
[2018-01-25] MEDS: FUROSEMIDE 40 MG/4 ML INJECTABLE VIAL IVPUSH SCH ×2 (05:23→09:05)
[2018-01-25] MEDS: metFORMIN HCL 500 MG TABLET (FP) PO SCH (06:02)
[2018-01-25 08:26] LABS: BASO % 0.2 % (0-2.0); EOS % 2.4 % (0-4.5); HEMOGLOBIN 9.5 GM/dL (11.7-16.9); LYMPH % 11.2 % (8-40); MCH 26.8 pg (25.7-33.7); MCHC 32.7 g/dl (32.0-35.9); MEAN CELL VOLUME 81.9 fl (80-96); MEAN PLT VOLUME 8.8 fl (7.5-11.1); MONO % 6.8 % (3.8-10.2); NEUT % 79.4 % (42.8-82.8); PLATELET COUNT 542 K/MM3 (134-434); RBC 3.54 M/mm3 (4.00-5.60); RDW 17.3 % (11.9-15.9); WHITE BLOOD COUNT 9.9 K/mm3 (4.0-10.0)
[2018-01-25 08:37] LABS: CHLORIDE 100 mmol/L (98-107); POTASSIUM 3.5 mmol/L (3.5-5.1); SODIUM 140 mmol/L (136-145)
[2018-01-25 08:40] LABS: INR 1.19 (0.82-1.09); PROTHROMBIN TIME (PATIENT) 13.5 SEC (9.7-13.0)
[2018-01-25 08:49] LABS: ALBUMIN 2.5 g/dl (3.4-5.0); ALK PHOS 118 U/L (45-117); ANION GAP 8 (8-16); BILIRUBIN,TOTAL 0.5 mg/dL (0.2-1.0); BLOOD UREA NITROGEN 26 mg/dL (7-18); CALCIUM 8.6 mg/dL (8.5-10.1); CO2 32 mmol/L (21-32); CREATININE 0.7 mg/dL (0.7-1.3); GLUCOSE,RANDOM 162 mg/dL (74-106); MAGNESIUM 2.1 mg/dL (1.8-2.4); SGOT/AST 21 U/L (15-37); SGPT/ALT 79 U/L (12-78); TOT PROT 5.8 g/dl (6.4-8.2)
[2018-01-25] MEDS: MAGNESIUM OXIDE 400 MG TABLET (FP) PO SCH ×2 (09:04→21:50)
[2018-01-25] MEDS: METOPROLOL TARTRATE 50 MG TABLET (FP) PO SCH ×2 (09:04→21:50)
[2018-01-25] MEDS: LOSARTAN POTASSIUM 50 MG TABLET (FP) PO SCH (09:04)
[2018-01-25] MEDS: CYANOCOBALAMIN (VITAMIN B-12) 1000 MCG/1 ML VIAL IM SCH (09:04)
[2018-01-25] MEDS: ASPIRIN COATED 81 MG TABLET.EC PO SCH (09:04)
[2018-01-25] MEDS: amLODIPine BESYLATE 5 MG TABLET (FP) PO SCH (09:04)
[2018-01-25] MEDS: NICOTINE 21 MG/24 HOURS TOPICAL PATCH TD SCH (09:04)
[2018-01-25] MEDS: POTASSIUM CHLORIDE TABS 20 MEQ TABLET.ER (FP) PO SCH ×2 (09:04→21:50)
[2018-01-25] MEDS: AMINO ACIDS/PROTEIN HYDROLYS 30 ML LIQUID.PKT PO SCH ×2 (09:05→17:52)
[2018-01-25] MEDS: BACITRACIN 15 GM TUBE TOPICAL OINTMENT TP SCH (09:06)
[2018-01-25] MEDS ORDERED: PT OWN MED DRAWER 7, Y5N ONE (09:15)
[2018-01-25] MEDS: ASCORBIC ACID 250 MG TABLET (FP) PO SCH (09:17)
[2018-01-25] MEDS: HEPARIN NA (PORCINE) 5,000 UNITS/ML 1ML VIAL IVPUSH PRN (09:19)
--- NOTE | 2018-01-25 09:54 | PN ---
Progress Note (short form) - Note Progress Note: History of Present Illness: feels "much better". no sob not requiring bipap. no palpit, cp, leg swelling ex cigs - Current Medication List Current Medications Generic Name Dose Route Start Last Admin Trade Name Freq PRN Reason Stop Dose Admin Acetaminophen 650 mg 01/23/18 15:54 Tylenol - PO Q6H PRN FEVER Albuterol/Ipratropium 1 amp 01/23/18 15:54 Duoneb - NEB Q6H PRN SHORTNESS OF BREATH Amino Acids 30 ml 01/24/18 08:00 01/25/18 09:05 Prosource No Carb Liquid Pkt PO 30 ml BID@0800,1730 [facility] Administration Amlodipine Besylate 5 mg 01/24/18 10:00 01/25/18 09:04 Norvasc - PO 5 mg DAILY [facility] Administration Ascorbic Acid 250 mg 01/24/18 10:00 01/25/18 09:17 Vitamin C - PO 250 mg DAILY [facility] Administration Aspirin 81 mg 01/24/18 10:00 01/25/18 09:04 Ecotrin - PO 81 mg DAILY [facility] Administration Atorvastatin Calcium 80 mg 01/23/18 22:00 01/24/18 21:37 Lipitor - PO 80 mg HS [facility] Administration Bacitracin 1 applic 01/23/18 16:00 01/25/18 09:06 Bacitracin - TP 1 applic DAILY [facility] Administration Cyanocobalamin 1,000 mcg 01/24/18 10:00 01/25/18 09:04 Vitamin B12 Injection - IM 1,000 mcg DAILY [facility] Administration Docusate Sodium 300 mg 01/23/18 22:00 01/24/18 21:38 Colace - PO 300 mg HS [facility] Administration Ergocalciferol 50,000 unit 01/30/18 10:00 Drisdol - PO Fr@1000 [facility] Furosemide 80 mg 01/25/18 06:00 01/25/18 09:05 Lasix Injection - IVPUSH Not Given DAILY [facility] Furosemide 40 mg 01/25/18 14:00 Lasix Injection - IVPUSH DAILY [facility] Heparin Sodium (Porcine) 1,000 unit 01/23/18 18:23 Heparin - IVPUSH PRN PRN Heparin Heparin Sodium (Porcine) 5,000 unit 01/23/18 18:23 01/25/18 09:19 Heparin - IVPUSH 5,000 unit PRN PRN Administration Heparin Heparin Sodium (Porcine) 25, 500 mls @ 20 mls/hr 01/23/18 18:30 01/25/18 09: 20 000 unit/ Sodium Chloride IV 1,450 unit/hr TITR [facility] 29 mls/hr Titration Protocol 1,000 UNIT/HR Losartan Potassium 50 mg 01/24/18 10:00 01/25/18 09:04 Cozaar - PO 50 mg DAILY [facility] Administration Magnesium Oxide 400 mg 01/23/18 22:00 01/25/18 09:04 Mag-Ox - PO 400 mg BID [facility] Administration Metformin HCl 500 mg 01/24/18 07:00 01/25/18 06:02 Glucophage - PO 500 mg DAILY@0700 [facility] Administration Metoprolol Tartrate 100 mg 01/23/18 22:00 01/25/18 09:04 Lopressor - PO 100 mg BID [facility] Administration Nicotine 21 mg 01/23/18 16:00 01/25/18 09:04 Nicoderm Patch - TD 21 mg DAILY [facility] Administration Oxycodone HCl 5 mg 01/23/18 15:54 Roxicodone - PO Q6H PRN PAIN LEVEL 7 - 10 Potassium Chloride 20 meq 01/23/18 22:00 01/25/18 09:04 K-Dur - PO 20 meq BID [facility] Administration Senna 1 tab 01/23/18 22:00 01/24/18 21:37 Senna - PO 1 tab HS [facility] Administration Warfarin Sodium 2.5 mg 01/24/18 18:00 01/24/18 17:43 Coumadin - PO 2.5 mg DAILY@1800 [facility] Administration 06:17 Dose: 25 mg - Objective Vital Signs: Vital Signs Temp 98.6 F 01/25/18 06:00 Pulse 89 01/25/18 08:00 Resp 18 01/25/18 08:00 BP 130/55 01/25/18 08:00 Pulse Ox 99 01/25/18 00:00 Intake & Output 01/24/18 01/24/18 01/25/18 11:59 23:59 11:59 Intake Total 664 528 448 Output Total 450 650 400 Balance 214 -122 48 Weight 139 lb 9.6 oz 138 lb 14.259 oz 141 lb 14.4 oz Intake: IV 184 288 208 Heparin - 25,000 Unit In 184 288 208 Normal Saline - 495 ml @ 1,000 UNIT/HR 20 mls/hr IV TITR [facility] Rx#: [id number] Oral 480 240 240 Output: Urine 450 650 400 Void 450 650 400 Other: Voiding Method Urinal Urinal Urinal Bowel Movement No No Height 5 ft 4 in Body Mass Index (BMI) 23.8 Weight Measurement Method Built in [facility] Constitutional: Yes: Well Nourished, No Distress, Calm Cardiovascular: Yes: Regular Rate and Rhythm, S1, S2. No: JVD, Gallop, Murmur Respiratory: Yes: Regular, Diminished (R bases), Rales (L base). No: Accessory Muscle Use Extremities: No: Cold Edema: No Neurological: Yes: Alert, Oriented Psychiatric: No: Agitated no jaundice diaphoresis Labs: Laboratory Last Values WBC 9.9 K/mm3 (4.0-10.0) 01/25/18 07:40 RBC 3.54 M/mm3 (4.00-5.60) L 01/25/18 07:40 Hgb 9.5 GM/dL (11.7-16.9) L 01/25/18 07:40 Hct 29.0 % (35.4-49) L 01/25/18 07:40 MCV 81.9 fl (80-96) 01/25/18 07:40 MCH 26.8 pg (25.7-33.7) 01/25/18 07:40 MCHC 32.7 g/dl (32.0-35.9) 01/25/18 07:40 RDW 17.3 % (11.9-15.9) H 01/25/18 07:40 Plt Count 542 K/MM3 (134-434) H 01/25/18 07:40 MPV 8.8 fl (7.5-11.1) 01/25/18 07:40 Absolute Neuts (auto) 7.9 # 01/25/18 07:40 Neutrophils % 79.4 % (42.8-82.8) 01/25/18 07:40 Neutrophils % (Manual) 80.0 % (42.8-82.8) 01/23/18 12:00 Band Neutrophils % 0.0 % 01/23/18 12:00 Lymphocytes % 11.2 % (8-40) 01/25/18 07:40 Lymphocytes % (Manual) 12.0 % (8-40) 01/23/18 12:00 Monocytes % 6.8 % (3.8-10.2) 01/25/18 07:40 Monocytes % (Manual) 7 % (3.8-10.2) 01/23/18 12:00 Eosinophils % 2.4 % (0-4.5) 01/25/18 07:40 Eosinophils % (Manual) 1.0 % (0-4.5) 01/23/18 12:00 Basophils % 0.2 % (0-2.0) 01/25/18 07:40 Basophils % (Manual) 0.0 % (0-2.0) 01/23/18 12:00 Myelocytes % (Man) 0 % (0-2) 01/23/18 12:00 Promyelocytes % (Man) 0 % (0-2) 01/23/18 12:00 Blast Cells % (Manual) 0 % (0-0) 01/23/18 12:00 Nucleated RBC % 0 % (0-0) 01/25/18 07:40 Metamyelocytes 0 % (0-2) 01/23/18 12:00 Hypochromia 2+ 01/23/18 12:00 Platelet Estimate Increased 01/23/18 12:00 Polychromasia 3+ 01/23/18 12:00 Poikilocytosis 0 01/23/18 12:00 Anisocytosis 3+ 01/23/18 12:00 Microcytosis 2+ 01/23/18 12:00 Macrocytosis 0 01/23/18 12:00 PT with INR 13.50 SEC (9.7-13.0) H 01/25/18 07:40 INR 1.19 (0.82-1.09) H 01/25/18 07:40 PTT (Actin FS) 24.5 SECONDS (25.2-36.5) L D 01/25/18 07:40 D-Dimer 7565 ng/ml (0-500) H 01/23/18 16:11 Anticoagulation Therapy No Result Required. 01/23/18 16:40 Puncture Site Right radial 01/23/18 16:40 ABG pH 7.47 (7.35-7.45) H 01/23/18 16:40 ABG pCO2 at Pt Temp 38.5 mmHg (35-45) 01/23/18 16:40 ABG pO2 at Pt Temp 73.4 mmHg (80-100) L 01/23/18 16:40 ABG HCO3 27.8 meq/L (22-26) H 01/23/18 16:40 ABG O2 Sat (Measured) 94.8 % (90-98.9) 01/23/18 16:40 ABG O2 Content 12.3 % vol (15-22) L 01/23/18 16:40 ABG Base Excess 4.4 meq/l (-2-2) H 01/23/18 16:40 Gerson Test Positive 01/23/18 16:40 O2 Delivery Device Bipap 01/23/18 16:40 Oxygen Flow Rate 35% 01/23/18 16:40 Vent Mode No Result Required. 01/23/18 16:40 Vent Rate No Result Required. 01/23/18 16:40 Mechanical Rate No Result Required. 01/23/18 16:40 Pressure Support Vent No Result Required. 01/23/18 16:40 Sodium 140 mmol/L (136-145) 01/25/18 07:40 Potassium 3.5 mmol/L (3.5-5.1) 01/25/18 07:40 Chloride 100 mmol/L (98-107) 01/25/18 07:40 Carbon Dioxide 32 mmol/L (21-32) 01/25/18 07:40 Anion Gap 8 (8-16) 01/25/18 07:40 BUN 26 mg/dL (7-18) H 01/25/18 07:40 Creatinine 0.7 mg/dL (0.7-1.3) 01/25/18 07:40 Creat Clearance w eGFR > 60 (>60) 01/25/18 07:40 Random Glucose 162 mg/dL (74-106) H D 01/25/18 07:40 Hemoglobin A1c % 5.7 % (4.8-6.0) D 01/24/18 05:30 Calcium 8.6 mg/dL (8.5-10.1) 01/25/18 07:40 Phosphorus 3.0 mg/dL (2.5-4.9) 01/25/18 07:40 Magnesium 2.1 mg/dL (1.8-2.4) 01/25/18 07:40 Total Bilirubin 0.5 mg/dL (0.2-1.0) 01/25/18 07:40 AST 21 U/L (15-37) D 01/25/18 07:40 ALT 79 U/L (12-78) H 01/25/18 07:40 Alkaline Phosphatase 118 U/L (45-117) H D 01/25/18 07:40 Creatine Kinase 251 IU/L (39-308) 01/23/18 18:55 Creatine Kinase Index 0.8 % (0.0-5.0) 01/23/18 18:55 CK-MB (CK-2) 2.18 ng/mL (0.5-3.6) 01/23/18 18:55 Troponin I 0.04 ng/ml (0.00-0.05) 01/23/18 18:55 B-Natriuretic Peptide 2792.89 pg/ml (5-125) H 01/23/18 12:00 Total Protein 5.8 g/dl (6.4-8.2) L 01/25/18 07:40 Albumin 2.5 g/dl (3.4-5.0) L 01/25/18 07:40 Triglycerides 226 mg/dL (35-160) H D 01/24/18 05:30 Cholesterol 145 mg/dL (50-200) 01/24/18 05:30 Total LDL Cholesterol 100 mg/dL (5-100) 01/24/18 05:30 HDL Cholesterol 21 mg/dL (40-60) L D 01/24/18 05:30 TSH 2.19 uIU/ml (0.358-3.74) D 01/24/18 05:30 Free T4 1.25 ng/dl (0.76-1.16) H 01/24/18 05:30 Blood Type B POSITIVE 01/25/18 07:40 Antibody Screen Negative 01/25/18 07:40 Crossmatch See Detail 01/25/18 07:40 ECG--NSR, normal axis. <1mm ST elevations I/avL, 1mm concave elevation V2= NO CHANGE VS PRIOR 01/18/18 AT [facility]. +pseudonormalization of TWIs previously seen V4 -6 CXR: right eff CT chest: moderate R, small-mod L effusion Echo 02/04 (today): TDS. nl LVSF. nl RV size/fxn. nl LA size. mild MR. no pericardial effusion. Echo 11/05 ([facility]): nl LV/EF. mild LVH. nl RV. mild LAE. mild MR. no evid pulm HTN. dilated IVC. LHC 11/05: EDP 18, EF 60%. 70-80% mLAD, CREDIT UNION EXAMINER of D1 fills from LAD. 80-90% pLCX, CREDIT UNION EXAMINER dLCX, CREDIT UNION EXAMINER LPL1 fills from RCA. 70-80% pRCA, CREDIT UNION EXAMINER mRCA fills from LAD. Carotid dopplers 11/05 ([facility]): RACHID 80-99% (PSV 425, EDV 133), + ulcerated plq seen. LICA nonobstructive. CTA neck 11/05 ([facility]): RACHID <50%. + R vert athero dz, not completely opacified. images reviewed by vascular medicine specialist there, who felt likely soft plaque causing severe RACHID narrowing. tele: SR a/p: acute hypoxic resp failure, acute PE, bilat pleural effusions: -CTA positive for PE. RV normal on echo yesterday. reviewed images with critical care dr deluca--dx is equivocal, but the defect in question is very small and distal and very unlikely to cause pt's severe sx's/hypoxia on presentation. -sx's much more likely sec to ongoing volume overload/effusions. -hemodynamically stable. -responding well and off bipap now, cont diuresis with iv lasix -given PE (if present) was provoked, will plan for 3 mo AC per d/w pulmonary. -per d/w dr benson, CTS at [facility], they strongly oppose NOAC in post-CTS pts for first 2 months given prior experiences with uncontrollable postop bleeding-- hence will plan to transition to coumadin. (will stop plavix (given for increasing graft patency) while on AC and do aspirin + coumadin only) -continue UFH gtt as doing -troponins neg, no ischemic ECG changes acute diast CHF: -fluid overload postop CABG. treated with lasix 40 iv BID at [facility]. d/c'd home on 40 qd. -sxs improving, cont iv lasix 80am, 40pm CAD s/p CABG: -01/05 s/p MATHIS to LAD, RAS to OM1, radial artery to LPDA--i.e. all arterial revasc -no signs ACS here -cont aspirin. plavix x12 mo. hi intensity statin (atorva 80), bb as doing HTN: -bp controlled -cont home meds anemia: -postop hgb on discharge from [facility] 8.5 -hgb stable here elevated ALT: -was >200 postop at [facility], trending down -observe labs trend copd: -per pulm lung nodule: -small nodule, recently had PET which was negative -outpt f/u with pulmonary carotid stenosis (R): -plan is for stent vs CEA electively at [facility], once recovers fully from CABG
--- NOTE | 2018-01-25 10:13 | EKG ---
Test Reason : Blood Pressure : / mmHG Vent. Rate : 073 BPM Atrial Rate : 073 BPM P-R Int : 134 ms QRS Dur : 106 ms QT Int : 414 ms P-R-T Axes : 061 029 054 degrees QTc Int : 456 ms NORMAL SINUS RHYTHM POSSIBLE LEFT ATRIAL ENLARGEMENT BORDERLINE ECG WHEN COMPARED WITH ECG OF 03-OCT-2016 16:33, NO SIGNIFICANT CHANGE WAS FOUND Confirmed by XIOMY HARPER MD ([id number]) on 01/25/2018 10:13:02 AM Referred By: Confirmed By:XIOMY HARPER MD
--- NOTE | 2018-01-25 10:14 | PN ---
Teaching Attending Note Name of Resident: Terrance Mills ATTENDING PHYSICIAN STATEMENT I saw and evaluated the patient. I reviewed the resident's note and discussed the case with the resident. I agree with the resident's findings and plan as documented. SUBJECTIVE: Patient seen and examined in the ICU. Breathing continues to feel better. Remains off NIPPV. No CP CXR: Bibasilar effusions / atelectasis Intake & Output 01/22/18 01/23/18 01/24/18 01/25/18 23:59 23:59 23:59 23:59 Intake Total 1192 448 Output Total 1100 400 Balance 92 48 Weight 143 lb 138 lb 14.259 oz 141 lb 14.4 oz Last Vital Signs Temp Pulse Resp BP Pulse Ox 98.6 F 89 18 130/55 99 01/25/18 06:00 01/25/18 08:00 01/25/18 08:00 01/25/18 08:00 01/25/18 00:00 Active Medications Acetaminophen (Tylenol -) 650 mg PO Q6H PRN PRN Reason: FEVER Albuterol/Ipratropium (Duoneb -) 1 amp NEB Q6H PRN PRN Reason: SHORTNESS OF BREATH Amino Acids (Prosource No Carb Liquid Pkt) 30 ml PO BID@0800,1730 [facility] Last Admin: 01/25/18 09:05 Dose: 30 ml Amlodipine Besylate (Norvasc -) 5 mg PO DAILY [facility] Last Admin: 01/25/18 09:04 Dose: 5 mg Ascorbic Acid (Vitamin C -) 250 mg PO DAILY [facility] Last Admin: 01/25/18 09:17 Dose: 250 mg Aspirin (Ecotrin -) 81 mg PO DAILY [facility] Last Admin: 01/25/18 09:04 Dose: 81 mg Atorvastatin Calcium (Lipitor -) 80 mg PO [facility] Last Admin: 01/24/18 21:37 Dose: 80 mg Bacitracin (Bacitracin -) 1 applic TP DAILY [facility] Last Admin: 01/25/18 09:06 Dose: 1 applic Cyanocobalamin (Vitamin B12 Injection -) 1,000 mcg IM DAILY [facility] Last Admin: 01/25/18 09:04 Dose: 1,000 mcg Docusate Sodium (Colace -) 300 mg PO [facility] Last Admin: 01/24/18 21:38 Dose: 300 mg Ergocalciferol (Drisdol -) 50,000 unit PO Fr@1000 [facility] Furosemide (Lasix Injection -) 80 mg IVPUSH DAILY [facility] Last Admin: 01/25/18 09:05 Dose: Not Given Furosemide (Lasix Injection -) 40 mg IVPUSH DAILY [facility] Heparin Sodium (Porcine) (Heparin -) 1,000 unit IVPUSH PRN PRN PRN Reason: Heparin Heparin Sodium (Porcine) (Heparin -) 5,000 unit IVPUSH PRN PRN PRN Reason: Heparin Last Admin: 01/25/18 09:19 Dose: 5,000 unit Heparin Sodium (Porcine) 25, (000 unit/ Sodium Chloride) 500 mls @ 20 mls/hr IV TITR [facility]; Protocol Last Titration: 01/25/18 09:20 Dose: 1,450 unit/hr, 29 mls/hr Losartan Potassium (Cozaar -) 50 mg PO DAILY [facility] Last Admin: 01/25/18 09:04 Dose: 50 mg Magnesium Oxide (Mag-Ox -) 400 mg PO BID [facility] Last Admin: 01/25/18 09:04 Dose: 400 mg Metformin HCl (Glucophage -) 500 mg PO DAILY@0700 [facility] Last Admin: 01/25/18 06:02 Dose: 500 mg Metoprolol Tartrate (Lopressor -) 100 mg PO BID [facility] Last Admin: 01/25/18 09:04 Dose: 100 mg Nicotine (Nicoderm Patch -) 21 mg TD DAILY [facility] Last Admin: 01/25/18 09:04 Dose: 21 mg Oxycodone HCl (Roxicodone -) 5 mg PO Q6H PRN PRN Reason: PAIN LEVEL 7 - 10 Potassium Chloride (K-Dur -) 20 meq PO BID [facility] Last Admin: 01/25/18 09:04 Dose: 20 meq Senna (Senna -) 1 tab PO HS [facility] Last Admin: 01/24/18 21:37 Dose: 1 tab Warfarin Sodium (Coumadin -) 2.5 mg PO DAILY@1800 [facility] Last Admin: 01/24/18 17:43 Dose: 2.5 mg GENERAL: NAD, Awake, alert, and fully oriented HEENT: NC/AT, EOMI, LINDY, sclera anicteric, MMM NECK: soft, no JVD noted, no carotid bruits LUNGS: Bibasilar rales, no wheezing HEART: RRR, normal S1 and S2 without murmur CHEST: Sternotomy site with bandage overlying w/o notable bleeding; did not directly visualize site ABDOMEN: Soft, nontender, not distended, normoactive bowel sounds, no guarding. No hepatomegaly EXTREMITIES: 2+ DP pulses, warm, well-perfused. No peripheral edema. No calf tenderness. LUE band noted near wrist w/o bleeding (site of harvest) PSYCHIATRIC: Cooperative. Good eye contact. Appropriate mood and affect. SKIN: Warm, dry, normal turgor, no rashes or lesions noted. Laboratory Results - last 24 hr 01/24/18 01/25/18 01/25/18 15:45 07:40 07:40 WBC 9.9 RBC 3.54 L Hgb 9.5 L Hct 29.0 L MCV 81.9 MCH 26.8 MCHC 32.7 RDW 17.3 H Plt Count 542 H MPV 8.8 Absolute Neuts (auto) 7.9 Neutrophils % 79.4 Lymphocytes % 11.2 Monocytes % 6.8 Eosinophils % 2.4 Basophils % 0.2 Nucleated RBC % 0 PT with INR INR PTT (Actin FS) 55.3 H D 24.5 L D Sodium Potassium Chloride Carbon Dioxide Anion Gap BUN Creatinine Creat Clearance w eGFR Random Glucose Calcium Phosphorus Magnesium Total Bilirubin AST ALT Alkaline Phosphatase Total Protein Albumin Blood Type Antibody Screen Crossmatch 01/25/18 01/25/18 01/25/18 07:40 07:40 07:40 WBC RBC Hgb Hct MCV MCH MCHC RDW Plt Count MPV Absolute Neuts (auto) Neutrophils % Lymphocytes % Monocytes % Eosinophils % Basophils % Nucleated RBC % PT with INR 13.50 H INR 1.19 H PTT (Actin FS) Sodium 140 Potassium 3.5 Chloride 100 Carbon Dioxide 32 Anion Gap 8 BUN 26 H Creatinine 0.7 Creat Clearance w eGFR > 60 Random Glucose 162 H D Calcium 8.6 Phosphorus 3.0 Magnesium 2.1 Total Bilirubin 0.5 AST 21 D ALT 79 H Alkaline Phosphatase 118 H D Total Protein 5.8 L Albumin 2.5 L Blood Type B POSITIVE Antibody Screen Negative Crossmatch See Detail ASSESSMENT/PLAN: Distal LLL PE: likely provoked RUL subpleural nodule (?) Loculated fluid Recent CABG 1 week ago HTN Bilateral pleural effusions Do not suspect PNA HPL Carotid stenosis DM IV Lasix AC with IV Heparin and transition to Coumadin O2 as needed Daily weight Strict I & O Monitor off ABX Incentive Spirometry Outpatient follow up of RUL nodule Cardiac Telemetry monitoring Dr Lomeli Critical care time spent in reviewing chart, evaluating patient and formulating plan - 36 minutes.
--- NOTE | 2018-01-25 10:49 | PN ---
Progress Note, Physician Chief Complaint: Pulmonary Embolism Pleural effusion S/P CABG History of Present Illness: NAD Family at bedside SpO2 97% on RA On heparin drip, starting warfarin today - Current Medication List Current Medications: Active Medications Acetaminophen (Tylenol -) 650 mg PO Q6H PRN PRN Reason: FEVER Albuterol/Ipratropium (Duoneb -) 1 amp NEB Q6H PRN PRN Reason: SHORTNESS OF BREATH Amino Acids (Prosource No Carb Liquid Pkt) 30 ml PO BID@0800,1730 [facility] Last Admin: 01/25/18 09:05 Dose: 30 ml Amlodipine Besylate (Norvasc -) 5 mg PO DAILY [facility] Last Admin: 01/25/18 09:04 Dose: 5 mg Ascorbic Acid (Vitamin C -) 250 mg PO DAILY [facility] Last Admin: 01/25/18 09:17 Dose: 250 mg Aspirin (Ecotrin -) 81 mg PO DAILY [facility] Last Admin: 01/25/18 09:04 Dose: 81 mg Atorvastatin Calcium (Lipitor -) 80 mg PO [facility] Last Admin: 01/24/18 21:37 Dose: 80 mg Bacitracin (Bacitracin -) 1 applic TP DAILY [facility] Last Admin: 01/25/18 09:06 Dose: 1 applic Cyanocobalamin (Vitamin B12 Injection -) 1,000 mcg IM DAILY [facility] Last Admin: 01/25/18 09:04 Dose: 1,000 mcg Docusate Sodium (Colace -) 300 mg PO [facility] Last Admin: 01/24/18 21:38 Dose: 300 mg Ergocalciferol (Drisdol -) 50,000 unit PO Fr@1000 [facility] Furosemide (Lasix Injection -) 80 mg IVPUSH DAILY [facility] Last Admin: 01/25/18 09:05 Dose: Not Given Furosemide (Lasix Injection -) 40 mg IVPUSH DAILY [facility] Heparin Sodium (Porcine) (Heparin -) 1,000 unit IVPUSH PRN PRN PRN Reason: Heparin Heparin Sodium (Porcine) (Heparin -) 5,000 unit IVPUSH PRN PRN PRN Reason: Heparin Last Admin: 01/25/18 09:19 Dose: 5,000 unit Heparin Sodium (Porcine) 25, (000 unit/ Sodium Chloride) 500 mls @ 20 mls/hr IV TITR [facility]; Protocol Last Titration: 07/08/18 09:20 Dose: 1,450 unit/hr, 29 mls/hr Losartan Potassium (Cozaar -) 50 mg PO DAILY [facility] Last Admin: 01/25/18 09:04 Dose: 50 mg Magnesium Oxide (Mag-Ox -) 400 mg PO BID [facility] Last Admin: 01/25/18 09:04 Dose: 400 mg Metformin HCl (Glucophage -) 500 mg PO DAILY@0700 [facility] Last Admin: 01/25/18 06:02 Dose: 500 mg Metoprolol Tartrate (Lopressor -) 100 mg PO BID [facility] Last Admin: 01/25/18 09:04 Dose: 100 mg Nicotine (Nicoderm Patch -) 21 mg TD DAILY [facility] Last Admin: 01/25/18 09:04 Dose: 21 mg Oxycodone HCl (Roxicodone -) 5 mg PO Q6H PRN PRN Reason: PAIN LEVEL 7 - 10 Potassium Chloride (K-Dur -) 20 meq PO BID [facility] Last Admin: 01/25/18 09:04 Dose: 20 meq Senna (Senna -) 1 tab PO HS [facility] Last Admin: 01/24/18 21:37 Dose: 1 tab Warfarin Sodium (Coumadin -) 2.5 mg PO DAILY@1800 [facility] Last Admin: 01/24/18 17:43 Dose: 2.5 mg - Objective Vital Signs: Vital Signs Temperature 98 F 01/25/18 10:00 Pulse Rate 86 01/25/18 10:00 Respiratory Rate 18 01/25/18 10:00 Blood Pressure 119/59 01/25/18 10:00 O2 Sat by Pulse Oximetry (%) 99 01/25/18 09:00 Constitutional: Yes: Well Nourished, No Distress, Calm Cardiovascular: Yes: Regular Rate and Rhythm, Murmur Respiratory: Yes: Regular Gastrointestinal: Yes: Normal Bowel Sounds, Soft Musculoskeletal: Yes: WNL Extremities: Yes: WNL Edema: No Peripheral Pulses WNL: Yes Neurological: Yes: Alert, Oriented Psychiatric: Yes: Alert, Oriented Labs: CBC, BMP 01/25/18 07:40 01/25/18 07:40 INR, PTT INR 1.19 (0.82-1.09) H 01/25/18 07:40 Problem List - Problems (1) Pulmonary edema Assessment/Plan: -seen by cardiology -On Furosemide 80 QAM and 40 QPM -CXR in AM Code(s): Ronnie81.1 - CHRONIC PULMONARY EDEMA Qualifiers: Chronicity: acute Qualified Code(s): J81.0 - Acute pulmonary edema (2) Pulmonary embolism Assessment/Plan: -Seen by Hematology -On heparin drip -Started on Warfarin -INR in AM Code(s): I26.99 - OTHER PULMONARY EMBOLISM WITHOUT ACUTE COR PULMONALE (3) S/P CABG (coronary artery bypass graft) Code(s): Z95.1 - PRESENCE OF AORTOCORONARY BYPASS GRAFT (4) Anemia Assessment/Plan: -check stool OB, Iron profile and B12 Code(s): D64.9 - ANEMIA, UNSPECIFIED (5) CHF (congestive heart failure) Assessment/Plan: -seen by cardiology -On Furosemide 80 QAM and 40 QPM -CXR in AM Code(s): I50.9 - HEART FAILURE, UNSPECIFIED (6) Diabetes mellitus Assessment/Plan: -a1c 5.7 -d/c Jacobouvia Code(s): E11.9 - TYPE 2 DIABETES MELLITUS WITHOUT COMPLICATIONS Assessment/Plan see problem list
--- NOTE | 2018-01-25 13:24 | PN ---
Progress Note (short form) - Note Progress Note: HEMATOLOGY CONSULT NOTE : 67yo M with history of CAD s/p recent CABG at [facility] (1 week ago; discharged after 1 day), DM, CVA, and HTN who came in for SOB. It seems that this was a combination of fluid overlad and possible small subsegmental PE. No h/o of blood clots in the past. Vital Signs Period Temp Pulse Resp BP Sys/Fine Pulse Ox Last 24 Hr 98 F-98.7 F 64-89 16-29 94-167/53-91 99-100 CBC, BMP 01/25/18 07:40 01/25/18 07:40 ASSESSMENT/PLAN: Subsegmental PE due to recent surgery : -Agree with hepain but can switch to Lovenox at 1mg/kg bid or 1.5 mg/kg q day -Coumadin is fine as CTS does not want NOAC -Continue slow warfarin bridgin and agree with 2.5 mg and can increase to 5 mg po q day -Follow heparin per protocol -will need 3 months of AC
--- NOTE | 2018-01-25 13:59 | PN ---
Physical Exam: SUBJECTIVE: Patient seen and examined today in icu. Pt sitting in chair, not in any acute distress. Denies sob, cp, borrego, or nausea. Family at bed side. OBJECTIVE: Vital Signs Period Temp Pulse Resp BP Sys/Fine Pulse Ox Last 24 Hr 98 F-98.7 F 64-89 16-29 94-167/53-91 99-100 GENERAL: aaoX3. HEAD: Normal with no signs of trauma. EYES: PERRL, extraocular movements intact, sclera anicteric, conjunctiva clear. No ptosis. ENT: Ears normal, nares patent, oropharynx clear without exudates, moist mucous membranes. NECK: Trachea midline, full range of motion, supple. LUNGS: decreased bs lower lung mello. HEART: + s1,s2. No M/R/G. No Jugular venous distension. ABDOMEN: Soft, nontender, nondistended, normoactive bowel sounds, no guarding, no rebound, no hepatosplenomegaly, no masses. EXTREMITIES: 2+ pulses, warm, well-perfused, no edema. NEUROLOGICAL: Cranial nerves II through XII grossly intact. Normal speech, gait not observed. PSYCH: Normal mood, normal affect. SKIN: Sternotomy bandage s/p cabg. Laboratory Results - last 24 hr 01/24/18 01/25/18 01/25/18 15:45 05:58 07:40 WBC RBC Hgb Hct MCV MCH MCHC RDW Plt Count MPV Absolute Neuts (auto) Neutrophils % Lymphocytes % Monocytes % Eosinophils % Basophils % Nucleated RBC % PT with INR INR PTT (Actin FS) 55.3 H D 24.5 L D Sodium Potassium Chloride Carbon Dioxide Anion Gap BUN Creatinine Creat Clearance w eGFR POC Glucometer [id number] Random Glucose Calcium Phosphorus Magnesium Total Bilirubin AST ALT Alkaline Phosphatase Total Protein Albumin Blood Type Antibody Screen Crossmatch 01/25/18 01/25/18 01/25/18 07:40 07:40 07:40 WBC 9.9 RBC 3.54 L Hgb 9.5 L Hct 29.0 L MCV 81.9 MCH 26.8 MCHC 32.7 RDW 17.3 H Plt Count 542 H MPV 8.8 Absolute Neuts (auto) 7.9 Neutrophils % 79.4 Lymphocytes % 11.2 Monocytes % 6.8 Eosinophils % 2.4 Basophils % 0.2 Nucleated RBC % 0 PT with INR 13.50 H INR 1.19 H PTT (Actin FS) Sodium 140 Potassium 3.5 Chloride 100 Carbon Dioxide 32 Anion Gap 8 BUN 26 H Creatinine 0.7 Creat Clearance w eGFR > 60 POC Glucometer Random Glucose 162 H D Calcium 8.6 Phosphorus 3.0 Magnesium 2.1 Total Bilirubin 0.5 AST 21 D ALT 79 H Alkaline Phosphatase 118 H D Total Protein 5.8 L Albumin 2.5 L Blood Type Antibody Screen Crossmatch 01/25/18 07:40 WBC RBC Hgb Hct MCV MCH MCHC RDW Plt Count MPV Absolute Neuts (auto) Neutrophils % Lymphocytes % Monocytes % Eosinophils % Basophils % Nucleated RBC % PT with INR INR PTT (Actin FS) Sodium Potassium Chloride Carbon Dioxide Anion Gap BUN Creatinine Creat Clearance w eGFR POC Glucometer Random Glucose Calcium Phosphorus Magnesium Total Bilirubin AST ALT Alkaline Phosphatase Total Protein Albumin Blood Type B POSITIVE Antibody Screen Negative Crossmatch See Detail Active Medications Generic Name Dose Route Start Last Admin Trade Name Freq PRN Reason Stop Dose Admin Acetaminophen 650 mg 01/23/18 15:54 Tylenol - PO Q6H PRN FEVER Albuterol/Ipratropium 1 amp 01/23/18 15:54 Duoneb - NEB Q6H PRN SHORTNESS OF BREATH Amino Acids 30 ml 01/24/18 08:00 01/25/18 09:05 Prosource No Carb Liquid Pkt PO 30 ml BID@0800,1730 [facility] Administration Amlodipine Besylate 5 mg 01/24/18 10:00 01/25/18 09:04 Norvasc - PO 5 mg DAILY [facility] Administration Ascorbic Acid 250 mg 01/24/18 10:00 01/25/18 09:17 Vitamin C - PO 250 mg DAILY [facility] Administration Aspirin 81 mg 01/24/18 10:00 01/25/18 09:04 Ecotrin - PO 81 mg DAILY [facility] Administration Atorvastatin Calcium 80 mg 01/23/18 22:00 01/24/18 21:37 Lipitor - PO 80 mg HS [facility] Administration Bacitracin 1 applic 01/23/18 16:00 01/25/18 09:06 Bacitracin - TP 1 applic DAILY [facility] Administration Cyanocobalamin 1,000 mcg 01/24/18 10:00 01/25/18 09:04 Vitamin B12 Injection - IM 1,000 mcg DAILY [facility] Administration Docusate Sodium 300 mg 01/23/18 22:00 01/24/18 21:38 Colace - PO 300 mg HS [facility] Administration Ergocalciferol 50,000 unit 01/30/18 10:00 Drisdol - PO Fr@1000 [facility] Furosemide 80 mg 01/25/18 06:00 01/25/18 09:05 Lasix Injection - IVPUSH Not Given DAILY [facility] Furosemide 40 mg 01/25/18 14:00 Lasix Injection - IVPUSH DAILY [facility] Heparin Sodium (Porcine) 1,000 unit 01/23/18 18:23 Heparin - IVPUSH PRN PRN Heparin Heparin Sodium (Porcine) 5,000 unit 01/23/18 18:23 01/25/18 09:19 Heparin - IVPUSH 5,000 unit PRN PRN Administration Heparin Heparin Sodium (Porcine) 25, 500 mls @ 20 mls/hr 01/23/18 18:30 01/25/18 09: 20 000 unit/ Sodium Chloride IV 1,450 unit/hr TITR [facility] 29 mls/hr Titration Protocol 1,000 UNIT/HR Losartan Potassium 50 mg 01/24/18 10:00 01/25/18 09:04 Cozaar - PO 50 mg DAILY [facility] Administration Magnesium Oxide 400 mg 01/23/18 22:00 01/25/18 09:04 Mag-Ox - PO 400 mg BID [facility] Administration Metformin HCl 500 mg 01/24/18 07:00 01/25/18 06:02 Glucophage - PO 500 mg DAILY@0700 [facility] Administration Metoprolol Tartrate 100 mg 01/23/18 22:00 01/25/18 09:04 Lopressor - PO 100 mg BID [facility] Administration Nicotine 21 mg 01/23/18 16:00 01/25/18 09:04 Nicoderm Patch - TD 21 mg DAILY [facility] Administration Oxycodone HCl 5 mg 01/23/18 15:54 Roxicodone - PO Q6H PRN PAIN LEVEL 7 - 10 Potassium Chloride 20 meq 01/23/18 22:00 01/25/18 09:04 K-Dur - PO 20 meq BID [facility] Administration Senna 1 tab 01/23/18 22:00 01/24/18 21:37 Senna - PO 1 tab HS [facility] Administration Warfarin Sodium 2.5 mg 01/24/18 18:00 01/24/18 17:43 Coumadin - PO 2.5 mg DAILY@1800 [facility] Administration ASSESSMENT/PLAN: Pt is a 67 y/o M with a history of HTN, DM, CVA, CAD. Pt underwent CABG at [facility] and was discharged 01/22/18. Presented to [facility] ED c/o chest pain and dyspnea. RESP Acute on Chronic hypoxemic respiratory failure pt is current smoker and endorses he smokes 1-2 packs a day Chest CT Angio (01/23/18): left lower lobe segmental branch PE B/l pleural effusiions and bibasilar atelectasis . .8 cm nodule seen in rt upper lobe of lung. Chest X-Ray (01/25/18): bibasilar pleural effusion and atelectasis. Hemodynamically stable, off of bipap Cardio Cardiology on board. Doesn't think sob, cp 2/2 PE. May be from diastolic HF s /p CABG ekg 01/23/18- mild left atrial enlargement. otherise normal findings. IV Lasix 40 am, 80 pm for fluid overload. CT [place] at [facility] against using NOAC in postop CTS patients due to incr risk of bleed. On heparin gtt, will transition to coumadin HTN- Losartan 50 mg po qd amlodipine 5 mg po qd Carotid Stenosis- f/u at [facility] for either carotid endarterectomy or stent FEN No fluids Monitor electrolytes Diabetic diet w/ low Na+ DVT ppx Heparin gtt Dispo: Continue to monitor in icu. Visit type - Emergency Visit Emergency Visit: Yes ED Registration Date: 01/23/18 Care time: The patient presented to the Emergency Department on the above date and was hospitalized for further evaluation of their emergent condition. - New Patient This patient is new to me today: Yes Date on this admission: 01/25/18 - Critical Care Critical Care patient: Yes Total Critical Care Time (in minutes): 35 Critical Care Statement: The care of this patient involved high complexity decision making to prevent further life threatening deterioration of the patient 's condition and/or to evaluate & treat vital organ system(s) failure or risk of failure.
[2018-01-25] MEDS ORDERED: FUROSEMIDE 40 MG/4 ML INJECTABLE VIAL IVPUSH SCH (14:00)
[2018-01-25] MEDS: WARFARIN NA 2.5 MG TABLET (FP) PO SCH (17:52)
[2018-01-25] MEDS: ATORVASTATIN CA 80 MG TABLET (FP) PO SCH (21:49)
[2018-01-25] MEDS: PANTOPRAZOLE 40 MG TABLET (FP) PO SCH (21:50)
[2018-01-25] MEDS: DOCUSATE SODIUM 100 MG CAPSULE (FP) PO SCH (21:50)
[2018-01-25] MEDS: HEPARIN - 25,000 UNIT in SODIUM CHLORIDE 495 ML IV SCH (21:54)
[2018-01-26 06:00] LABS: BASO % 0.4 % (0-2.0); EOS % 3.4 % (0-4.5); HEMATOCRIT 28.1 % (35.4-49); HEMOGLOBIN 9.2 GM/dL (11.7-16.9); LYMPH % 16.4 % (8-40); MCH 26.7 pg (25.7-33.7); MCHC 32.6 g/dl (32.0-35.9); MEAN CELL VOLUME 81.7 fl (80-96); MEAN PLT VOLUME 9.1 fl (7.5-11.1); MONO % 7.7 % (3.8-10.2); NEUT % 72.1 % (42.8-82.8); PLATELET COUNT 526 K/MM3 (134-434); RBC 3.44 M/mm3 (4.00-5.60); RDW 17.9 % (11.9-15.9); WHITE BLOOD COUNT 9.5 K/mm3 (4.0-10.0)
[2018-01-26 06:08] LABS: INR 1.19 (0.82-1.09); PROTHROMBIN TIME (PATIENT) 13.5 SEC (9.7-13.0)
[2018-01-26] MEDS: metFORMIN HCL 500 MG TABLET (FP) PO SCH (06:19)
--- NOTE | 2018-01-26 08:02 | PN ---
Progress Note, Physician - Current Medication List Current Medications: Active Medications Acetaminophen (Tylenol -) 650 mg PO Q6H PRN PRN Reason: FEVER Albuterol/Ipratropium (Duoneb -) 1 amp NEB Q6H PRN PRN Reason: SHORTNESS OF BREATH Amino Acids (Prosource No Carb Liquid Pkt) 30 ml PO BID@0800,1730 [facility] Last Admin: 01/25/18 17:52 Dose: 30 ml Amlodipine Besylate (Norvasc -) 5 mg PO DAILY [facility] Last Admin: 01/25/18 09:04 Dose: 5 mg Ascorbic Acid (Vitamin C -) 250 mg PO DAILY [facility] Last Admin: 01/25/18 09:17 Dose: 250 mg Aspirin (Ecotrin -) 81 mg PO DAILY [facility] Last Admin: 01/25/18 09:04 Dose: 81 mg Atorvastatin Calcium (Lipitor -) 80 mg PO HS [facility] Last Admin: 01/25/18 21:49 Dose: 80 mg Bacitracin (Bacitracin -) 1 applic TP DAILY [facility] Last Admin: 01/25/18 09:06 Dose: 1 applic Cyanocobalamin (Vitamin B12 Injection -) 1,000 mcg IM DAILY [facility] Last Admin: 01/25/18 09:04 Dose: 1,000 mcg Docusate Sodium (Colace -) 300 mg PO HS [facility] Last Admin: 01/25/18 21:50 Dose: Not Given Ergocalciferol (Drisdol -) 50,000 unit PO Fr@1000 [facility] Furosemide (Lasix Injection -) 80 mg IVPUSH DAILY [facility] Last Admin: 01/25/18 09:05 Dose: Not Given Furosemide (Lasix Injection -) 40 mg IVPUSH DAILY [facility] Last Admin: 01/25/18 14:42 Dose: 40 mg Heparin Sodium (Porcine) (Heparin -) 1,000 unit IVPUSH PRN PRN PRN Reason: Heparin Last Admin: 01/25/18 18:01 Dose: 1,000 unit Heparin Sodium (Porcine) (Heparin -) 5,000 unit IVPUSH PRN PRN PRN Reason: Heparin Last Admin: 01/25/18 09:19 Dose: 5,000 unit Heparin Sodium (Porcine) 25, (000 unit/ Sodium Chloride) 500 mls @ 20 mls/hr IV TITR [facility]; Protocol Last Admin: 01/25/18 21:54 Dose: 1,550 unit/hr, 31 mls/hr Losartan Potassium (Cozaar -) 50 mg PO DAILY [facility] Last Admin: 01/25/18 09:04 Dose: 50 mg Magnesium Oxide (Mag-Ox -) 400 mg PO BID [facility] Last Admin: 01/25/18 21:50 Dose: 400 mg Metformin HCl (Glucophage -) 500 mg PO DAILY@0700 [facility] Last Admin: 01/26/18 06:19 Dose: 500 mg Metoprolol Tartrate (Lopressor -) 100 mg PO BID [facility] Last Admin: 01/25/18 21:50 Dose: 100 mg Nicotine (Nicoderm Patch -) 21 mg TD DAILY [facility] Last Admin: 01/25/18 09:04 Dose: 21 mg Oxycodone HCl (Roxicodone -) 5 mg PO Q6H PRN PRN Reason: PAIN LEVEL 7 - 10 Pantoprazole Sodium (Protonix -) 40 mg PO DAILY [facility] Last Admin: 01/25/18 21:50 Dose: 40 mg Potassium Chloride (K-Dur -) 20 meq PO BID [facility] Last Admin: 01/25/18 21:50 Dose: 20 meq Warfarin Sodium (Coumadin -) 2.5 mg PO DAILY@1800 [facility] Last Admin: 01/25/18 17:52 Dose: 2.5 mg - Objective Vital Signs: Vital Signs Temperature 98.5 F 01/26/18 06:00 Pulse Rate 65 01/26/18 06:00 Respiratory Rate 21 01/26/18 06:00 Blood Pressure 127/54 01/26/18 06:00 O2 Sat by Pulse Oximetry (%) 96 01/25/18 20:55 Cardiovascular: Yes: S1, S2 Respiratory: Yes: Regular, CTA Bilaterally Gastrointestinal: Yes: Normal Bowel Sounds, Soft Labs: CBC, BMP 01/26/18 05:30 01/25/18 07:40 INR, PTT INR 1.19 (0.82-1.09) H 01/26/18 05:30 Assessment/Plan - Problems (1) Pulmonary edema Assessment/Plan: -seen by cardiology -On Furosemide 80 QAM and 40 QPM -CXR Code(s): J81.1 - CHRONIC PULMONARY EDEMA Qualifiers: Chronicity: acute Qualified Code(s): J81.0 - Acute pulmonary edema (2) Pulmonary embolism Assessment/Plan: -Seen by Hematology -On heparin drip -Started on Warfarin -INR Code(s): I26.99 - OTHER PULMONARY EMBOLISM WITHOUT ACUTE COR PULMONALE (3) S/P CABG (coronary artery bypass graft) Code(s): Z95.1 - PRESENCE OF AORTOCORONARY BYPASS GRAFT (4) Anemia Assessment/Plan: -check stool OB, Iron profile and B12 Code(s): D64.9 - ANEMIA, UNSPECIFIED (5) CHF (congestive heart failure) Assessment/Plan: -seen by cardiology -On Furosemide 80 QAM and 40 QPM -CXR in AM Code(s): I50.9 - HEART FAILURE, UNSPECIFIED (6) Diabetes mellitus Assessment/Plan: -a1c 5.7 -d/c Januvia Code(s): E11.9 - TYPE 2 DIABETES MELLITUS WITHOUT COMPLICATIONS
[2018-01-26] MEDS: MAGNESIUM OXIDE 400 MG TABLET (FP) PO SCH ×2 (10:11→21:18)
[2018-01-26] MEDS: METOPROLOL TARTRATE 50 MG TABLET (FP) PO SCH ×2 (10:11→21:16)
[2018-01-26] MEDS: POTASSIUM CHLORIDE TABS 20 MEQ TABLET.ER (FP) PO SCH ×2 (10:11→21:18)
[2018-01-26] MEDS: ASPIRIN COATED 81 MG TABLET.EC PO SCH (10:11)
[2018-01-26] MEDS: PANTOPRAZOLE 40 MG TABLET (FP) PO SCH (10:12)
[2018-01-26] MEDS: AMINO ACIDS/PROTEIN HYDROLYS 30 ML LIQUID.PKT PO SCH ×2 (10:12→17:31)
[2018-01-26] MEDS: CYANOCOBALAMIN (VITAMIN B-12) 1000 MCG/1 ML VIAL IM SCH (10:12)
[2018-01-26] MEDS: amLODIPine BESYLATE 5 MG TABLET (FP) PO SCH (10:12)
[2018-01-26] MEDS: LOSARTAN POTASSIUM 50 MG TABLET (FP) PO SCH (10:12)
[2018-01-26] MEDS: FUROSEMIDE 40 MG/4 ML INJECTABLE VIAL IVPUSH SCH (10:16)
[2018-01-26] MEDS: NICOTINE 21 MG/24 HOURS TOPICAL PATCH TD SCH (10:17)
[2018-01-26] MEDS ORDERED: FUROSEMIDE 40 MG/4 ML INJECTABLE VIAL IVPUSH SCH ×2 (11:17→11:18)
--- NOTE | 2018-01-26 11:40 | PN ---
Teaching Attending Note Name of Resident: Terrance Mills ATTENDING PHYSICIAN STATEMENT I saw and evaluated the patient. I reviewed the resident's note and discussed the case with the resident. I agree with the resident's findings and plan as documented. SUBJECTIVE: Patient seen and examined in the ICU. Breathing continues to feel better. Remains off NIPPV. No CP Intake & Output 01/23/18 01/24/18 01/25/18 01/26/18 23:59 23:59 23:59 23:59 Intake Total 1192 748 256.2 Output Total 1100 400 350 Balance 92 348 -93.8 Weight 143 lb 138 lb 14.259 oz 141 lb 14.4 oz 145 lb 4.554 oz Last Vital Signs Temp Pulse Resp BP Pulse Ox 98.5 F 88 22 129/61 95 01/26/18 06:00 01/26/18 10:00 01/26/18 10:00 01/26/18 10:00 01/26/18 09:20 Active Medications Acetaminophen (Tylenol -) 650 mg PO Q6H PRN PRN Reason: FEVER Albuterol/Ipratropium (Duoneb -) 1 amp NEB Q6H PRN PRN Reason: SHORTNESS OF BREATH Amino Acids (Prosource No Carb Liquid Pkt) 30 ml PO BID@0800,1730 [facility] Last Admin: 01/26/18 10:12 Dose: 30 ml Amlodipine Besylate (Norvasc -) 5 mg PO DAILY [facility] Last Admin: 01/26/18 10:12 Dose: 5 mg Ascorbic Acid (Vitamin C -) 250 mg PO DAILY [facility] Last Admin: 01/25/18 09:17 Dose: 250 mg Aspirin (Ecotrin -) 81 mg PO DAILY [facility] Last Admin: 01/26/18 10:11 Dose: 81 mg Atorvastatin Calcium (Lipitor -) 80 mg PO [facility] Last Admin: 01/25/18 21:49 Dose: 80 mg Bacitracin (Bacitracin -) 1 applic TP DAILY [facility] Last Admin: 01/25/18 09:06 Dose: 1 applic Cyanocobalamin (Vitamin B12 Injection -) 1,000 mcg IM DAILY [facility] Last Admin: 01/26/18 10:12 Dose: 1,000 mcg Docusate Sodium (Colace -) 300 mg PO [facility] Last Admin: 01/25/18 21:50 Dose: Not Given Ergocalciferol (Drisdol -) 50,000 unit PO Fr@1000 [facility] Furosemide (Lasix Injection -) 80 mg IVPUSH DAILY@0600 [facility] Furosemide (Lasix Injection -) 40 mg IVPUSH DAILY@1400 [facility] Heparin Sodium (Porcine) (Heparin -) 1,000 unit IVPUSH PRN PRN PRN Reason: Heparin Last Admin: 01/25/18 18:01 Dose: 1,000 unit Heparin Sodium (Porcine) (Heparin -) 5,000 unit IVPUSH PRN PRN PRN Reason: Heparin Last Admin: 01/25/18 09:19 Dose: 5,000 unit Heparin Sodium (Porcine) 25, (000 unit/ Sodium Chloride) 500 mls @ 20 mls/hr IV TITR [facility]; Protocol Last Titration: 01/26/18 08:55 Dose: 1,750 unit/hr, 35 mls/hr Losartan Potassium (Cozaar -) 50 mg PO DAILY [facility] Last Admin: 01/26/18 10:12 Dose: 50 mg Magnesium Oxide (Mag-Ox -) 400 mg PO BID [facility] Last Admin: 01/26/18 10:11 Dose: 400 mg Metformin HCl (Glucophage -) 500 mg PO DAILY@0700 [facility] Last Admin: 01/26/18 06:19 Dose: 500 mg Metoprolol Tartrate (Lopressor -) 100 mg PO BID [facility] Last Admin: 01/26/18 10:11 Dose: 100 mg Nicotine (Nicoderm Patch -) 21 mg TD DAILY [facility] Last Admin: 01/26/18 10:17 Dose: 21 mg Oxycodone HCl (Roxicodone -) 5 mg PO Q6H PRN PRN Reason: PAIN LEVEL 7 - 10 Pantoprazole Sodium (Protonix -) 40 mg PO DAILY [facility] Last Admin: 01/26/18 10:12 Dose: 40 mg Potassium Chloride (K-Dur -) 20 meq PO BID [facility] Last Admin: 01/26/18 10:11 Dose: 20 meq Warfarin Sodium (Coumadin -) 2.5 mg PO DAILY@1800 [facility] Last Admin: 01/25/18 17:52 Dose: 2.5 mg GENERAL: NAD, Awake, alert, and fully oriented HEENT: NC/AT, EOMI, LINDY, sclera anicteric, MMM NECK: soft, no JVD noted, no carotid bruits LUNGS: Bibasilar rales, no wheezing HEART: RRR, normal S1 and S2 without murmur CHEST: Sternotomy site with bandage overlying w/o notable bleeding; did not directly visualize site ABDOMEN: Soft, nontender, not distended, normoactive bowel sounds, no guarding. No hepatomegaly EXTREMITIES: 2+ DP pulses, warm, well-perfused. No peripheral edema. No calf tenderness. LUE band noted near wrist w/o bleeding (site of harvest) PSYCHIATRIC: Cooperative. Good eye contact. Appropriate mood and affect. SKIN: Warm, dry, normal turgor, no rashes or lesions noted. Laboratory Results - last 24 hr 01/25/18 01/25/18 01/25/18 05:58 07:40 16:30 WBC RBC Hgb Hct MCV MCH MCHC RDW Plt Count MPV Absolute Neuts (auto) Neutrophils % Lymphocytes % Monocytes % Eosinophils % Basophils % Nucleated RBC % PT with INR INR PTT (Actin FS) 46.0 H D POC Glucometer 171.00418 Iron 32 L 01/26/18 01/26/18 01/26/18 00:01 05:30 05:30 WBC 9.5 RBC 3.44 L Hgb 9.2 L Hct 28.1 L MCV 81.7 MCH 26.7 MCHC 32.6 RDW 17.9 H Plt Count 526 H MPV 9.1 Absolute Neuts (auto) 6.9 Neutrophils % 72.1 Lymphocytes % 16.4 D Monocytes % 7.7 Eosinophils % 3.4 Basophils % 0.4 Nucleated RBC % 0 PT with INR INR PTT (Actin FS) 40.0 H 40.4 H POC Glucometer Iron 01/26/18 05:30 WBC RBC Hgb Hct MCV MCH MCHC RDW Plt Count MPV Absolute Neuts (auto) Neutrophils % Lymphocytes % Monocytes % Eosinophils % Basophils % Nucleated RBC % PT with INR 13.50 H INR 1.19 H PTT (Actin FS) POC Glucometer Iron ASSESSMENT/PLAN: Distal LLL PE: likely provoked RUL subpleural nodule (?) Loculated fluid Recent CABG 1 week ago HTN Bilateral pleural effusions Do not suspect PNA HPL Carotid stenosis DM IV Lasix AC with IV Heparin and transition to Coumadin O2 as needed Daily weight Strict I & O Monitor off ABX Incentive Spirometry Outpatient follow up of RUL nodule Cardiac Telemetry monitoring Dr Yani Critical care time spent in reviewing chart, evaluating patient and formulating plan - 36 minutes.
--- NOTE | 2018-01-26 12:31 | PN ---
Physical Exam: SUBJECTIVE: Patient seen and examined today in icu. Pt sitting up in chair, breathing comfortably. Denies any cp, borrego, sob, nausea, or vomiting. Was walking around the unit today. OBJECTIVE: Vital Signs Period Temp Pulse Resp BP Sys/Fine Pulse Ox Last 24 Hr 97.9 F-98.5 F 63-88 16-29 100-157/51-69 95-96 GENERAL: aaox3 HEAD: Normal with no signs of trauma. EYES: PERRL, EOMI, sclera anicteric, conjunctiva clear. No ptosis. ENT: Ears normal, nares patent, oropharynx clear without exudates, moist mucous membranes. NECK: Trachea midline, full range of motion, supple. LUNGS: Decreased BS at lower bases of lungs b/l. HEART: RRR, -m/r/g, + s1,s2. ABDOMEN: NT, ND, no rebound or guarding. bs+. EXTREMITIES: 2+ pulses, warm, well-perfused, no edema. NEUROLOGICAL: Cranial nerves II through XII grossly intact. Normal speech, gait not observed. PSYCH: Normal mood, normal affect. SKIN: Sternotomy bandage in place. Laboratory Results - last 24 hr 01/25/18 01/25/18 01/26/18 07:40 16:30 00:01 WBC RBC Hgb Hct MCV MCH MCHC RDW Plt Count MPV Absolute Neuts (auto) Neutrophils % Lymphocytes % Monocytes % Eosinophils % Basophils % Nucleated RBC % PT with INR INR PTT (Actin FS) 46.0 H D 40.0 H Iron 32 L 01/26/18 01/26/18 01/26/18 05:30 05:30 05:30 WBC 9.5 RBC 3.44 L Hgb 9.2 L Hct 28.1 L MCV 81.7 MCH 26.7 MCHC 32.6 RDW 17.9 H Plt Count 526 H MPV 9.1 Absolute Neuts (auto) 6.9 Neutrophils % 72.1 Lymphocytes % 16.4 D Monocytes % 7.7 Eosinophils % 3.4 Basophils % 0.4 Nucleated RBC % 0 PT with INR 13.50 H INR 1.19 H PTT (Actin FS) 40.4 H Iron Active Medications Generic Name Dose Route Start Last Admin Trade Name Freq PRN Reason Stop Dose Admin Acetaminophen 650 mg 01/23/18 15:54 Tylenol - PO Q6H PRN FEVER Albuterol/Ipratropium 1 amp 01/23/18 15:54 Duoneb - NEB Q6H PRN SHORTNESS OF BREATH Amino Acids 30 ml 01/24/18 08:00 01/26/18 10:12 Prosource No Carb Liquid Pkt PO 30 ml BID@0800,1730 [facility] Administration Amlodipine Besylate 5 mg 01/24/18 10:00 01/26/18 10:12 Norvasc - PO 5 mg DAILY [facility] Administration Ascorbic Acid 250 mg 01/24/18 10:00 01/25/18 09:17 Vitamin C - PO 250 mg DAILY [facility] Administration Aspirin 81 mg 01/24/18 10:00 01/26/18 10:11 Ecotrin - PO 81 mg DAILY [facility] Administration Atorvastatin Calcium 80 mg 01/23/18 22:00 01/25/18 21:49 Lipitor - PO 80 mg HS [facility] Administration Bacitracin 1 applic 01/23/18 16:00 01/25/18 09:06 Bacitracin - TP 1 applic DAILY [facility] Administration Cyanocobalamin 1,000 mcg 01/24/18 10:00 01/26/18 10:12 Vitamin B12 Injection - IM 1,000 mcg DAILY [facility] Administration Docusate Sodium 300 mg 01/23/18 22:00 01/25/18 21:50 Colace - PO Not Given HS [facility] Ergocalciferol 50,000 unit 01/30/18 10:00 Drisdol - PO Fr@1000 [facility] Furosemide 80 mg 01/26/18 11:17 Lasix Injection - IVPUSH DAILY@0600 [facility] Furosemide 40 mg 01/26/18 11:18 Lasix Injection - IVPUSH DAILY@1400 [facility] Heparin Sodium (Porcine) 1,000 unit 01/23/18 18:23 01/25/18 18:01 Heparin - IVPUSH 1,000 unit PRN PRN Administration Heparin Heparin Sodium (Porcine) 5,000 unit 01/23/18 18:23 01/25/18 09:19 Heparin - IVPUSH 5,000 unit PRN PRN Administration Heparin Heparin Sodium (Porcine) 25, 500 mls @ 20 mls/hr 01/23/18 18:30 01/26/18 08: 55 000 unit/ Sodium Chloride IV 1,750 unit/hr TITR [facility] 35 mls/hr Titration Protocol 1,000 UNIT/HR Losartan Potassium 50 mg 01/24/18 10:00 01/26/18 10:12 Cozaar - PO 50 mg DAILY [facility] Administration Magnesium Oxide 400 mg 01/23/18 22:00 01/26/18 10:11 Mag-Ox - PO 400 mg BID [facility] Administration Metformin HCl 500 mg 01/24/18 07:00 01/26/18 06:19 Glucophage - PO 500 mg DAILY@0700 [facility] Administration Metoprolol Tartrate 100 mg 01/23/18 22:00 01/26/18 10:11 Lopressor - PO 100 mg BID [facility] Administration Nicotine 21 mg 01/23/18 16:00 01/26/18 10:17 Nicoderm Patch - TD 21 mg DAILY [facility] Administration Oxycodone HCl 5 mg 01/23/18 15:54 Roxicodone - PO Q6H PRN PAIN LEVEL 7 - 10 Pantoprazole Sodium 40 mg 01/25/18 19:15 01/26/18 10:12 Protonix - PO 40 mg DAILY [facility] Administration Potassium Chloride 20 meq 01/23/18 22:00 01/26/18 10:11 K-Dur - PO 20 meq BID [facility] Administration Warfarin Sodium 2.5 mg 01/24/18 18:00 01/25/18 17:52 Coumadin - PO 2.5 mg DAILY@1800 [facility] Administration ASSESSMENT/PLAN: Pt is a 67 y/o M with a history of HTN, DM, CVA, CAD. Pt underwent CABG at [facility] and was discharged 01/22/18. Presented to [facility] ED c/o chest pain and dyspnea. RESP Acute on Chronic hypoxemic respiratory failure pt is current smoker and endorses he smokes 1-[address] packs a day [address] Angio (01/23/18): left lower lobe segmental branch PE B/l pleural effusiions and bibasilar atelectasis . .8 cm nodule seen in rt upper lobe of lung. Outpatient f/u of RUL nodule Chest X-Ray (01/25/18): bibasilar pleural effusion and atelectasis. Hemodynamically stable, off of bipap Incentive [facility] Cardiology on board. Doesn't think sob, cp 2/2 PE. May be from diastolic HF s /p CABG ekg 01/23/18- mild left atrial enlargement. otherise normal findings. IV Lasix 40 am, 80 pm for fluid overload. CT [place] at [facility] against using NOAC in postop CTS patients due to incr risk of bleed. On heparin gtt, will transition to coumadin HTN- Losartan 50 mg po qd amlodipine 5 mg po qd Carotid Stenosis- f/u at [facility] for either carotid endarterectomy or stent Endo: DM2 Continue Januvia 25 mg po daily Metformin 500 mg po daily. FEN No fluids Monitor electrolytes Diabetic diet w/ low Na+ DVT ppx Heparin gtt Dispo: Transfer to telem today. Visit type - Emergency Visit Emergency Visit: Yes ED Registration Date: 01/23/18 Care time: The patient presented to the Emergency Department on the above date and was hospitalized for further evaluation of their emergent condition. - New Patient This patient is new to me today: No - Critical Care Critical Care patient: Yes Total Critical Care Time (in minutes): 35 Critical Care Statement: The care of this patient involved high complexity decision making to prevent further life threatening deterioration of the patient 's condition and/or to evaluate & treat vital organ system(s) failure or risk of failure.
[2018-01-26] MEDS ORDERED: PT OWN MED DRAWER 7, Y5N ONE (13:16)
[2018-01-26] MEDS: ASCORBIC ACID 250 MG TABLET (FP) PO SCH (13:18)
[2018-01-26] MEDS: BACITRACIN 15 GM TUBE TOPICAL OINTMENT TP SCH (13:19)
--- NOTE | 2018-01-26 15:49 | PN ---
Progress Note, Physician History of Present Illness: Dyspnea resolved with diuresis, denies chest pain, receiving heparin gtt-> coumadin per INR for treatment of LLL PE, no NOAC per CTS within 2 months of CABG. - Current Medication List Current Medications: Active Medications Acetaminophen (Tylenol -) 650 mg PO Q6H PRN PRN Reason: FEVER Albuterol/Ipratropium (Duoneb -) 1 amp NEB Q6H PRN PRN Reason: SHORTNESS OF BREATH Amino Acids (Prosource No Carb Liquid Pkt) 30 ml PO BID@0800,1730 [facility]S [facility]CLUDE 234 BEDS AT [facility] Last Admin: 01/26/18 10:12 Dose: 30 ml Amlodipine Besylate (Norvasc -) 5 mg PO DAILY [facility] 234 BEDS AT [facility] Last Admin: 01/26/18 10:12 Dose: 5 mg Ascorbic Acid (Vitamin C -) 250 mg PO DAILY [facility] 234 BEDS AT [facility] Last Admin: 01/26/18 13:18 Dose: 250 mg Aspirin (Ecotrin -) 81 mg PO DAILY [facility] 234 BEDS AT [facility] Last Admin: 01/26/18 10:11 Dose: 81 mg Atorvastatin Calcium (Lipitor -) 80 mg PO [facility] Last Admin: 01/25/18 21:49 Dose: 80 mg Bacitracin (Bacitracin -) 1 applic TP DAILY [facility] 234 BEDS AT [facility] Last Admin: 01/26/18 13:19 Dose: 1 applic Cyanocobalamin (Vitamin B12 Injection -) 1,000 mcg IM DAILY [facility] 234 BEDS AT [facility] Last Admin: 01/26/18 10:12 Dose: 1,000 mcg Docusate Sodium (Colace -) 300 mg PO HS [facility]CLUDE 234 BEDS AT [facility] Last Admin: 01/25/18 21:50 Dose: Not Given Ergocalciferol (Drisdol -) 50,000 unit PO Fr@1000 [facility]CLUDE 234 BEDS AT [facility] Furosemide (Lasix Injection -) 80 mg IVPUSH DAILY@0600 [facility]CLUDE 234 BEDS AT [facility] Furosemide (Lasix Injection -) 40 mg IVPUSH DAILY@1400 [facility]CLUDE 234 BEDS AT [facility] Last Admin: 01/26/18 13:15 Dose: 40 mg Heparin Sodium (Porcine) (Heparin -) 1,000 unit IVPUSH PRN PRN PRN Reason: Heparin Last Admin: 01/25/18 18:01 Dose: 1,000 unit Heparin Sodium (Porcine) (Heparin -) 5,000 unit IVPUSH PRN PRN PRN Reason: Heparin Last Admin: 01/25/18 09:19 Dose: 5,000 unit Heparin Sodium (Porcine) 25, (000 unit/ Sodium Chloride) 500 mls @ 20 mls/hr IV TITR [facility]CLUDE 234 BEDS AT THE [facility]; Protocol Last Titration: 01/26/18 08:55 Dose: 1,750 unit/hr, 35 mls/hr Losartan Potassium (Cozaar -) 50 mg PO DAILY [facility]CLUDE 234 BEDS AT [facility] Last Admin: 01/26/18 10:12 Dose: 50 mg Magnesium Oxide (Mag-Ox -) 400 mg PO BID [facility]CLUDE 234 BEDS AT [facility] Last Admin: 01/26/18 10:11 Dose: 400 mg Metformin HCl (Glucophage -) 500 mg PO DAILY@0700 [facility]CLUDE 234 BEDS AT [facility] Last Admin: 01/26/18 06:19 Dose: 500 mg Metoprolol Tartrate (Lopressor -) 100 mg PO BID [facility]CLUDE 234 BEDS AT [facility] Last Admin: 01/26/18 10:11 Dose: 100 mg Nicotine (Nicoderm Patch -) 21 mg TD DAILY [facility]CLUDE 234 BEDS AT [facility] Last Admin: 01/26/18 10:17 Dose: 21 mg Oxycodone HCl (Roxicodone -) 5 mg PO Q6H PRN PRN Reason: PAIN LEVEL 7 - 10 Pantoprazole Sodium (Protonix -) 40 mg PO DAILY [facility] 234 BEDS AT [facility] Last Admin: 01/26/18 10:12 Dose: 40 mg Potassium Chloride (K-Dur -) 20 meq PO BID [facility]CLUDE 234 BEDS AT [facility] Last Admin: 01/26/18 10:11 Dose: 20 meq Warfarin Sodium (Coumadin -) 2.5 mg PO DAILY@1800 COUNTS INCLUDE 234 BEDS AT [facility] Last Admin: 01/25/18 17:52 Dose: 2.5 mg - Objective Vital Signs: Vital Signs Temperature 97.9 F 01/26/18 12:00 Pulse Rate 71 01/26/18 12:00 Respiratory Rate 20 01/26/18 12:00 Blood Pressure 107/58 01/26/18 12:00 O2 Sat by Pulse Oximetry (%) 98 01/26/18 14:10 Constitutional: Yes: No Distress, Calm, Thin Neck: Yes: Supple Cardiovascular: Yes: Regular Rate and Rhythm Respiratory: Yes: Regular, CTA Bilaterally Gastrointestinal: Yes: Normal Bowel Sounds, Soft Edema: No Labs: CBC, BMP 01/26/18 05:30 01/25/18 07:40 INR, PTT INR 1.19 (0.82-1.09) H 01/26/18 05:30 Problem List - Problems (1) ASHD (arteriosclerotic heart disease) Code(s): I25.10 - ATHSCL HEART DISEASE OF [place] CORONARY ARTERY W/O ANG PCTRS (2) Acute hypoxemic respiratory failure Code(s): J96.01 - ACUTE RESPIRATORY FAILURE WITH HYPOXIA (3) CHF (congestive heart failure) Code(s): I50.9 - HEART FAILURE, UNSPECIFIED Qualifiers: Heart failure type: diastolic Heart failure chronicity: acute Qualified Code(s): I50.31 - Acute diastolic (congestive) heart failure (4) Pulmonary edema Code(s): J81.1 - CHRONIC PULMONARY EDEMA Qualifiers: Chronicity: acute Qualified Code(s): J81.0 - Acute pulmonary edema (5) Pulmonary embolism Code(s): I26.99 - OTHER PULMONARY EMBOLISM WITHOUT ACUTE COR PULMONALE Qualifiers: Pulmonary embolism type: other Acute cor pulmonale presence: without acute cor pulmonale (6) S/P CABG (coronary artery bypass graft) Code(s): Z95.1 - PRESENCE OF AORTOCORONARY BYPASS GRAFT (7) Cigarette smoker Code(s): F17.210 - NICOTINE DEPENDENCE, CIGARETTES, UNCOMPLICATED (8) Diabetes mellitus Code(s): E11.9 - TYPE 2 DIABETES MELLITUS WITHOUT COMPLICATIONS Qualifiers: Diabetes mellitus type: type 2 (9) Essential hypertension Code(s): I10 - ESSENTIAL (PRIMARY) HYPERTENSION (10) Lipidemia Code(s): E78.5 - HYPERLIPIDEMIA, UNSPECIFIED Qualifiers: Hyperlipidemia type: mixed hyperlipidemia Qualified Code(s): E78.2 - Mixed hyperlipidemia Assessment/Plan ECG--NSR, normal axis. <1mm ST elevations I/avL, 1mm concave elevation V2= NO CHANGE VS PRIOR 01/18/18 AT [facility]. +pseudonormalization of TWIs previously seen V4 -6 CXR: right eff CT chest: moderate R, small-mod L effusion, LLL PE Echo 02/04 ([facility]): TDS. nl LVSF. nl RV size/fxn. nl LA size. mild MR. no pericardial effusion. Echo 11/05 ([facility]): nl LV/EF. mild LVH. nl RV. mild LAE. mild MR. no evid pulm HTN. dilated IVC. LHC 11/05: EDP 18, EF 60%. 70-80% mLAD, [employer] of D1 fills from [facility]. 80-90% pLCX, [employer]BER dLCX, [employer]BER LPL1 fills from RCA. 70-80% pRCA, [employer]BER mRCA fills from [facility]AD. Carotid dopplers 11/05 ([facility]): RACHID 80-99% (PSV 425, EDV 133), + ulcerated plq seen. LICA nonobstructive. CTA neck 11/05 ([facility]): RACHID <50%. + R vert athero dz, not completely opacified. images reviewed by vascular medicine specialist there, who felt likely soft plaque causing severe RACHID narrowing. tele: SR a/p: acute hypoxic resp failure, acute PE, bilat pleural effusions: -CTA positive for PE. RV normal on echo yesterday. reviewed images with critical care dr deluca--dx is equivocal, but the defect in question is very small and distal and very unlikely to cause pt's severe sx's/hypoxia on presentation. -sx's much more likely sec to ongoing volume overload/effusions. -hemodynamically stable. -responding well and off bipap now, cont diuresis with iv lasix -given PE (if present) was provoked, will plan for 3 mo AC per d/w pulmonary. -per d/w dr benson, CTS at [facility], they strongly oppose NOAC in post-CTS pts for first 2 months given prior experiences with uncontrollable postop bleeding-- hence will plan to transition to coumadin. (will stop plavix (given for increasing graft patency) while on AC and do aspirin + coumadin only with GI protection -continue UFH gtt as doing -troponins neg, no ischemic ECG changes acute diast CHF: -fluid overload postop CABG. treated with lasix 40 iv BID at [facility]. d/c'd home on 40 qd. -sxs improving, decrease Lasix 40 qd CAD s/p CABG: -01/05 s/p MATHIS to LAD, RAS to OM1, radial artery to LPDA--i.e. all arterial revasc -no signs ACS here -cont aspirin, plavix d/elieser while on coumadin. hi intensity statin (atorva 80), Lopressor 100 bid, norvasc 5 qd HTN: -bp controlled -cont losartan 50 qd anemia: -postop hgb on discharge from [facility] 8.5 -hgb stable here elevated ALT: -was >200 postop at [facility], trending down -observe labs trend copd: -per pulm lung nodule: -small nodule, recently had PET which was negative -outpt f/u with pulmonary carotid stenosis (R): -plan is for stent vs CEA electively at [facility], once recovers fully from CABG Tobacco abuse -Nicoderm patch
[2018-01-26] MEDS: WARFARIN NA 2.5 MG TABLET (FP) PO SCH (17:30)
[2018-01-26] MEDS: HEPARIN - 25,000 UNIT in SODIUM CHLORIDE 495 ML IV SCH (19:30)
--- NOTE | 2018-01-26 20:09 | PN ---
Progress Note (short form) - Note Progress Note: Patient seen and examined Feels better Last Vital Signs Temp Pulse Resp BP Pulse Ox 98.7 F 86 22 141/63 98 01/26/18 18:00 01/26/18 18:00 01/26/18 18:00 01/26/18 18:00 01/26/18 14:10 Cor: RSR, No murmurs, No gallops Lungs: Clear to P&A Abd: Soft, Normal bowel sounds, No organomegaly Ext:No significant edema Abnormal Lab Results 01/25/18 01/26/18 01/26/18 07:40 00:01 05:30 RBC Hgb Hct RDW Plt Count PT with INR INR PTT (Actin FS) 40.0 H 40.4 H Iron 32 L 01/26/18 01/26/18 01/26/18 05:30 05:30 16:10 RBC 3.44 L Hgb 9.2 L Hct 28.1 L RDW 17.9 H Plt Count 526 H PT with INR 13.50 H INR 1.19 H PTT (Actin FS) 54.5 H D Iron Active Medications Acetaminophen (Tylenol -) 650 mg PO Q6H PRN PRN Reason: FEVER Albuterol/Ipratropium (Duoneb -) 1 amp NEB Q6H PRN PRN Reason: SHORTNESS OF BREATH Amino Acids (Prosource No Carb Liquid Pkt) 30 ml PO BID@0800,1730 [facility] Last Admin: 01/26/18 17:31 Dose: 30 ml Amlodipine Besylate (Norvasc -) 5 mg PO DAILY [facility] Last Admin: 01/26/18 10:12 Dose: 5 mg Ascorbic Acid (Vitamin C -) 250 mg PO DAILY [facility] Last Admin: 01/26/18 13:18 Dose: 250 mg Aspirin (Ecotrin -) 81 mg PO DAILY [facility] Last Admin: 01/26/18 10:11 Dose: 81 mg Atorvastatin Calcium (Lipitor -) 80 mg PO HS [facility] Last Admin: 01/25/18 21:49 Dose: 80 mg Bacitracin (Bacitracin -) 1 applic TP DAILY [facility] Last Admin: 01/26/18 13:19 Dose: 1 applic Cyanocobalamin (Vitamin B12 Injection -) 1,000 mcg IM DAILY [facility] Last Admin: 01/26/18 10:12 Dose: 1,000 mcg Docusate Sodium (Colace -) 300 mg PO HS [facility] Last Admin: 01/25/18 21:50 Dose: Not Given Ergocalciferol (Drisdol -) 50,000 unit PO Fr@1000 [facility] Furosemide (Lasix Injection -) 40 mg IVPUSH DAILY [facility] Heparin Sodium (Porcine) (Heparin -) 1,000 unit IVPUSH PRN PRN PRN Reason: Heparin Last Admin: 01/25/18 18:01 Dose: 1,000 unit Heparin Sodium (Porcine) (Heparin -) 5,000 unit IVPUSH PRN PRN PRN Reason: Heparin Last Admin: 01/25/18 09:19 Dose: 5,000 unit Heparin Sodium (Porcine) 25, (000 unit/ Sodium Chloride) 500 mls @ 20 mls/hr IV TITR [facility]; Protocol Last Titration: 01/26/18 17:14 Dose: 1,750 unit/hr, 35 mls/hr Losartan Potassium (Cozaar -) 50 mg PO DAILY [facility] Last Admin: 01/26/18 10:12 Dose: 50 mg Magnesium Oxide (Mag-Ox -) 400 mg PO BID [facility] Last Admin: 01/26/18 10:11 Dose: 400 mg Metformin HCl (Glucophage -) 500 mg PO DAILY@0700 [facility] Last Admin: 01/26/18 06:19 Dose: 500 mg Metoprolol Tartrate (Lopressor -) 100 mg PO BID [facility] Last Admin: 01/26/18 10:11 Dose: 100 mg Nicotine (Nicoderm Patch -) 21 mg TD DAILY [facility] Last Admin: 01/26/18 10:17 Dose: 21 mg Oxycodone HCl (Roxicodone -) 5 mg PO Q6H PRN PRN Reason: PAIN LEVEL 7 - 10 Pantoprazole Sodium (Protonix -) 40 mg PO DAILY [facility] Last Admin: 01/26/18 10:12 Dose: 40 mg Potassium Chloride (K-Dur -) 20 meq PO BID [facility] Last Admin: 01/26/18 10:11 Dose: 20 meq Warfarin Sodium (Coumadin -) 2.5 mg PO DAILY@1800 [facility] Last Admin: 01/26/18 17:30 Dose: 2.5 mg A/P Subsegmental PE due to recent surgery : -Agree with hepain but can switch to Lovenox at 1mg/kg bid or 1.5 mg/kg q day -Coumadin is fine as [facility] does not want NOAC -Continue slow warfarin bridging --will increase to 4mg daily -Follow heparin per protocol
[2018-01-26] MEDS: DOCUSATE SODIUM 100 MG CAPSULE (FP) PO SCH (21:06)
[2018-01-26] MEDS: ATORVASTATIN CA 80 MG TABLET (FP) PO SCH (21:18)
[2018-01-26] MEDS ORDERED: MELATONIN 1 MG TABLET PO SCH (22:00)
[2018-01-26] MEDS ORDERED: WARFARIN NA 1 MG TABLET (FP) PO ONE (22:00)
[2018-01-27] MEDS: metFORMIN HCL 500 MG TABLET (FP) PO SCH (06:03)
[2018-01-27 06:12] LABS: BASO % 0.6 % (0-2.0); EOS % 2.9 % (0-4.5); LYMPH % 22.2 % (8-40); MCH 26.4 pg (25.7-33.7); MCHC 32.1 g/dl (32.0-35.9); MEAN CELL VOLUME 82.4 fl (80-96); MEAN PLT VOLUME 8.6 fl (7.5-11.1); MONO % 7.8 % (3.8-10.2); NEUT % 66.5 % (42.8-82.8); PLATELET COUNT 518 K/MM3 (134-434); RDW 18.6 % (11.9-15.9); WHITE BLOOD COUNT 8.3 K/mm3 (4.0-10.0)
[2018-01-27 06:30] LABS: INR 1.24 (0.82-1.09)
[2018-01-27 06:37] LABS: ALBUMIN 2.5 g/dl (3.4-5.0); ANION GAP 7 (8-16); BLOOD UREA NITROGEN 21 mg/dL (7-18); CALCIUM 8.1 mg/dL (8.5-10.1); CHLORIDE 106 mmol/L (98-107); CO2 29 mmol/L (21-32); GLUCOSE,RANDOM 134 mg/dL (74-106); MAGNESIUM 2.1 mg/dL (1.8-2.4); POTASSIUM 3.8 mmol/L (3.5-5.1); SODIUM 142 mmol/L (136-145)
[2018-01-27 06:41] LABS: ALK PHOS 102 U/L (45-117); BILIRUBIN,TOTAL 0.4 mg/dL (0.2-1.0); CREATININE 0.5 mg/dL (0.7-1.3); PHOSPHOROUS 2.9 mg/dL (2.5-4.9); SGOT/AST 14 U/L (15-37); SGPT/ALT 56 U/L (12-78); TOT PROT 5.6 g/dl (6.4-8.2)
[2018-01-27] MEDS: AMINO ACIDS/PROTEIN HYDROLYS 30 ML LIQUID.PKT PO SCH (07:36)
[2018-01-27 07:44] VITALS: BP 126/66; TEMP 98
[2018-01-27 07:49] VITALS: PULSE 79
--- NOTE | 2018-01-27 07:54 | PN ---
Progress Note, Physician History of Present Illness: wants to go home feels well - Current Medication List Current Medications: Active Medications Acetaminophen (Tylenol -) 650 mg PO Q6H PRN PRN Reason: FEVER Albuterol/Ipratropium (Duoneb -) 1 amp NEB Q6H PRN PRN Reason: SHORTNESS OF BREATH Amino Acids (Prosource No Carb Liquid Pkt) 30 ml PO BID@0800,1730 [facility] Last Admin: 01/27/18 07:36 Dose: 30 ml Amlodipine Besylate (Norvasc -) 5 mg PO DAILY [facility] Last Admin: 01/26/18 10:12 Dose: 5 mg Ascorbic Acid (Vitamin C -) 250 mg PO DAILY [facility] Last Admin: 01/26/18 13:18 Dose: 250 mg Aspirin (Ecotrin -) 81 mg PO DAILY [facility] Last Admin: 01/26/18 10:11 Dose: 81 mg Atorvastatin Calcium (Lipitor -) 80 mg PO HS [facility] Last Admin: 01/26/18 21:18 Dose: 80 mg Bacitracin (Bacitracin -) 1 applic TP DAILY [facility] Last Admin: 01/26/18 13:19 Dose: 1 applic Cyanocobalamin (Vitamin B12 Injection -) 1,000 mcg IM DAILY [facility] Last Admin: 01/26/18 10:12 Dose: 1,000 mcg Docusate Sodium (Colace -) 300 mg PO HS [facility] Last Admin: 01/26/18 21:06 Dose: Not Given Ergocalciferol (Drisdol -) 50,000 unit PO Fr@1000 [facility] Furosemide (Lasix Injection -) 40 mg IVPUSH DAILY [facility] Heparin Sodium (Porcine) (Heparin -) 1,000 unit IVPUSH PRN PRN PRN Reason: Heparin Last Admin: 01/25/18 18:01 Dose: 1,000 unit Heparin Sodium (Porcine) (Heparin -) 5,000 unit IVPUSH PRN PRN PRN Reason: Heparin Last Admin: 01/25/18 09:19 Dose: 5,000 unit Heparin Sodium (Porcine) 25, (000 unit/ Sodium Chloride) 500 mls @ 20 mls/hr IV TITR SAGAR; Protocol Last Admin: 01/26/18 19:30 Dose: 1,750 unit/hr, 35 mls/hr Losartan Potassium (Cozaar -) 50 mg PO DAILY [facility] Last Admin: 01/26/18 10:12 Dose: 50 mg Magnesium Oxide (Mag-Ox -) 400 mg PO BID [facility] Last Admin: 01/26/18 21:18 Dose: 400 mg Melatonin (Melatonin) 2 mg PO HS [facility] Last Admin: 01/26/18 22:36 Dose: 2 mg Metformin HCl (Glucophage -) 500 mg PO DAILY@0700 [facility] Last Admin: 01/27/18 06:03 Dose: 500 mg Metoprolol Tartrate (Lopressor -) 100 mg PO BID [facility] Last Admin: 01/26/18 21:16 Dose: 100 mg Nicotine (Nicoderm Patch -) 21 mg TD DAILY [facility] Last Admin: 01/26/18 10:17 Dose: 21 mg Oxycodone HCl (Roxicodone -) 5 mg PO Q6H PRN PRN Reason: PAIN LEVEL 7 - 10 Pantoprazole Sodium (Protonix -) 40 mg PO DAILY [facility] Last Admin: 01/26/18 10:12 Dose: 40 mg Potassium Chloride (K-Dur -) 20 meq PO BID [facility] Last Admin: 01/26/18 21:18 Dose: 20 meq Warfarin Sodium (Coumadin -) 2.5 mg PO DAILY@1800 [facility] Last Admin: 01/26/18 17:30 Dose: 2.5 mg - Objective Vital Signs: Vital Signs Temperature 98.0 F 01/27/18 07:43 Pulse Rate 79 01/27/18 07:47 Respiratory Rate 26 H 01/27/18 07:47 Blood Pressure 126/66 01/27/18 07:43 O2 Sat by Pulse Oximetry (%) 96 01/27/18 07:44 Cardiovascular: Yes: Murmur, S1, S2 Respiratory: Yes: Regular, CTA Bilaterally Gastrointestinal: Yes: Normal Bowel Sounds, Soft Labs: CBC, BMP 01/27/18 05:30 01/27/18 05:30 INR, PTT INR 1.24 (0.82-1.09) H 01/27/18 05:30 Assessment/Plan (1) Pulmonary edema/congestive heart failure Assessment/Plan: -seen by cardiology -On Furosemide iv to po -CXR Code(s): J81.1 - CHRONIC PULMONARY EDEMA Qualifiers: Chronicity: acute Qualified Code(s): J81.0 - Acute pulmonary edema (2) Pulmonary embolism Assessment/Plan: -Seen by Hematology -On heparin drip -Started on Warfarin--to lovenox and train on injections -INR --on coumadin Code(s): I26.99 - OTHER PULMONARY EMBOLISM WITHOUT ACUTE COR PULMONALE (3) S/P CABG (coronary artery bypass graft) Code(s): Z95.1 - PRESENCE OF AORTOCORONARY BYPASS GRAFT (4) Anemia Assessment/Plan: -check stool OB, Iron profile and B12 Code(s): D64.9 - ANEMIA, UNSPECIFIED (5) Pulmonary Nodule Assessment/Plan: -Outpatient Follow up (6) Diabetes mellitus Assessment/Plan: -a1c 5.7 -d/c Januvia Code(s): E11.9 - TYPE 2 DIABETES MELLITUS WITHOUT COMPLICATIONS
[2018-01-27] MEDS ORDERED: PT OWN MED DRAWER 7, Y5N ONE (08:24)
[2018-01-27] MEDS: ASCORBIC ACID 250 MG TABLET (FP) PO SCH (09:40)
[2018-01-27] MEDS: MAGNESIUM OXIDE 400 MG TABLET (FP) PO SCH (09:40)
[2018-01-27] MEDS: CYANOCOBALAMIN (VITAMIN B-12) 1000 MCG/1 ML VIAL IM SCH (09:40)
[2018-01-27] MEDS: PANTOPRAZOLE 40 MG TABLET (FP) PO SCH (09:40)
[2018-01-27] MEDS: NICOTINE 21 MG/24 HOURS TOPICAL PATCH TD SCH (09:40)
[2018-01-27] MEDS: METOPROLOL TARTRATE 50 MG TABLET (FP) PO SCH (09:40)
[2018-01-27] MEDS: LOSARTAN POTASSIUM 50 MG TABLET (FP) PO SCH (09:40)
[2018-01-27] MEDS: amLODIPine BESYLATE 5 MG TABLET (FP) PO SCH (09:40)
[2018-01-27] MEDS: ASPIRIN COATED 81 MG TABLET.EC PO SCH (09:41)
[2018-01-27] MEDS: BACITRACIN 15 GM TUBE TOPICAL OINTMENT TP SCH (09:41)
[2018-01-27] MEDS: POTASSIUM CHLORIDE TABS 20 MEQ TABLET.ER (FP) PO SCH (09:42)
[2018-01-27] MEDS ORDERED: ENOXAPARIN NA (PORCINE) 80 MG/0.8 ML DISP.SYRIN SQ SCH (10:00)
[2018-01-27] MEDS ORDERED: FUROSEMIDE 40 MG/4 ML INJECTABLE VIAL IVPUSH SCH (10:00)
[2018-01-27] MEDS ORDERED: FUROSEMIDE 40 MG TABLET (FP) PO SCH (10:00)
--- NOTE | 2018-01-27 12:50 | DS ---
Physical Examination Vital Signs: Vital Signs Temperature 98.0 F 01/27/18 07:43 Pulse Rate 79 01/27/18 07:47 Respiratory Rate 26 H 01/27/18 07:47 Blood Pressure 126/66 01/27/18 07:43 O2 Sat by Pulse Oximetry (%) 96 01/27/18 07:44 Labs: CBC, BMP 01/27/18 05:30 01/27/18 05:30 Discharge Summary Reason For Visit: Shortness of Breath / PLEURAL EFFUSION Current Active Problems ASHD (arteriosclerotic heart disease) (Acute) Acute hypoxemic respiratory failure (Acute) Anemia (Acute) CHF (congestive heart failure) (Acute) Old cerebrovascular accident (CVA) without late effect (Acute) Pulmonary edema (Acute) Pulmonary embolism (Acute) S/P CABG (coronary artery bypass graft) (Acute) Condition: Stable - Instructions Diet, Activity, Other Instructions: Must see dr mario on to check bloods for Coumadin continue with lovenox until you see dr mario Referrals: Geoff Mario MD [Primary Care Provider] - 01/29/18 - Home Medications Comprehensive Discharge Medication List: Ambulatory Orders Amlodipine Besylate [Norvasc -] 5 mg PO DAILY 01/23/18 Aspirin 81 mg PO DAILY 01/23/18 Atorvastatin Ca [Lipitor] 80 mg PO DAILY 01/23/18 Clopidogrel Bisulfate [Plavix -] 75 mg PO DAILY 01/23/18 Docusate Sodium [Colace] 100 mg PO TID PRN 01/23/18 Furosemide [Lasix -] 40 mg PO DAILY 01/23/18 Losartan Potassium 50 mg PO 1700 01/23/18 Magnesium Oxide 400 mg PO DAILY 01/23/18 Metoprolol Tartrate 100 mg PO BID 01/23/18 Nicotine [Nicotine Patch 14mg/24 hr] 1 each TD DAILY 01/23/18 Oxycodone HCl 5 mg PO Q4H PRN 01/23/18 Potassium Chloride [K-Dur -] 20 meq PO BID 01/23/18 Sitagliptin Phosphate [Januvia] 25 mg PO DAILY 01/23/18 metFORMIN HCL [Metformin HCl] 500 mg PO DAILY 01/23/18 Amino Acids/Protein Hydrolys [Prosource No Carb Liquid Pkt] 30 ml PO BID@0800, 1730 packet 01/27/18 Docusate Sodium [Colace -] 300 mg PO HS capsule 01/27/18 Enoxaparin [Lovenox -] 70 mg SQ BID #6 disp.syrin 01/27/18 Pantoprazole Sodium [Protonix -] 40 mg PO DAILY #30 tablet.ec 01/27/18 Warfarin Na [Coumadin -] 5 mg PO DAILY@1800 #15 tablet 01/27/18
[2018-01-27] MEDS ORDERED: WARFARIN NA 5 MG TABLET (UD) PO SCH (18:00)
[2018-01-30] MEDS ORDERED: ERGOCALCIFEROL (VITAMIN D2) 50,000 UNIT CAPSULE (FP) PO SCH (10:00)
== END 2018-01-27 13:30 | disposition home or self-care (01) | DRG 299 ==
LOC: JER 11:37 → JERBED 13:43 → J4S 14:51 → JICU 21:15 → J2W 01-27 07:09
PROVIDERS: ADMIT Family Medicine; ATTEND Family Medicine
DX: T81.718A Complication of other artery following a procedure, not elsewhere classified, initial encounter (principal); J95.822 Acute and chronic postprocedural respiratory failure; I50.33 Acute on chronic diastolic (congestive) heart failure; J98.11 Atelectasis; I26.99 Other pulmonary embolism without acute cor pulmonale; E11.9 Type 2 diabetes mellitus without complications; I25.10 Atherosclerotic heart disease of native coronary artery without angina pectoris; Z95.1 Presence of aortocoronary bypass graft; F17.210 Nicotine dependence, cigarettes, uncomplicated; R91.1 Solitary pulmonary nodule; D64.9 Anemia, unspecified; I69.322 Dysarthria following cerebral infarction; I11.0 Hypertensive heart disease with heart failure; Z79.84 Long term (current) use of oral hypoglycemic drugs; J44.9 Chronic obstructive pulmonary disease, unspecified; I65.21 Occlusion and stenosis of right carotid artery; Y83.8 Other surgical procedures as the cause of abnormal reaction of the patient, or of later complication, without mention of misadventure at the time of the procedure
CPT/HCPCS: 36415; 36600; 71045-TC-FY; 71275-TC; 80053; 80061; 82550; 82553; 82803; 82962; 83036; 83540; 83721; 83735; 83880; 84100; 84439; 84443; 84484; 85025; 85027; 85379; 85610; 85730; 86850; 86900; 86901; 93005; 93010; 93306-TC; 93970-TC; 99284-25; J1644

== ENCOUNTER 2020-06-19 10:02 | Inpatient (IN) | payer OTHER ==
[2020-06-19 11:04] LABS: BASO % 0.4 % (0-2.0); EOS % 0.1 % (0-4.5); HEMATOCRIT 58.6 % (35.4-49); HEMOGLOBIN 18.8 GM/dL (11.7-16.9); LYMPH % 8.7 % (8-40); MCH 26.4 pg (25.7-33.7); MCHC 32.1 g/dl (32.0-35.9); MEAN CELL VOLUME 82.4 fl (80-96); MEAN PLT VOLUME 9.4 fl (7.5-11.1); MONO % 8.2 % (3.8-10.2); NEUT % 82.6 % (42.8-82.8); PLATELET COUNT 262 K/MM3 (134-434); RBC 7.11 M/mm3 (4.00-5.60); RDW 15.5 % (11.9-15.9); WHITE BLOOD COUNT 17.4 K/mm3 (4.0-10.0)
[2020-06-19 11:11] LABS: INR 1.03 (0.83-1.09); PROTHROMBIN TIME (PATIENT) 12.5 SEC (9.7-13.0)
[2020-06-19 11:13] LABS: ACTIVATED PTT 28.8 SECONDS (25.2-36.5)
[2020-06-19 11:32] LABS: POTASSIUM 3.4 mmol/L (3.5-5.1)
[2020-06-19 11:34] LABS: ALBUMIN 3.7 g/dl (3.4-5.0); CALCIUM 9.8 mg/dL (8.5-10.1)
[2020-06-19 11:35] LABS: BLOOD UREA NITROGEN 20.2 mg/dL (7-18)
[2020-06-19 11:37] LABS: CREATININE 1.2 mg/dL (0.55-1.3)
[2020-06-19] MEDS ORDERED: ACETAMINOPHEN 1000 MG/100 ML VIAL (NON FORMULARY) IVPB ONE (11:38)
[2020-06-19 11:39] LABS: BILIRUBIN,TOTAL 0.8 mg/dL (0.2-1); TOT PROT 7.6 g/dl (6.4-8.2)
[2020-06-19] MEDS ORDERED: ACETAMINOPHEN INJECTION 100 ML IVPB ONE (11:42)
[2020-06-19] MEDS ORDERED: POTASSIUM CHLORIDE TABS 20 MEQ TABLET.ER (FP) PO ONE ×2 (11:43→11:58)
[2020-06-19] MEDS ORDERED: LACTATED RINGERS SOLUTION 1000 ML INFUS.BAG IV ONE (12:18)
[2020-06-19 13:19] LABS: URINE APPEARANCE TURBID; URINE COLOR DK YELLOW
[2020-06-19 13:20] LABS: URINE BILIRUBIN SMALL (NEGATIVE); URINE KETONE TRACE (NEGATIVE); URINE LEUK ESTERASE NEGATIVE (NEGATIVE); URINE NITRITE NEGATIVE (NEGATIVE); URINE PROTEIN 3+ (NEGATIVE)
[2020-06-19 13:21] LABS: EPI CELLS 19.2 /uL (0-25.1); HYALINE CASTS 8.6 /uL (0-3.1); URINE BACTERIA 38.2 /uL (0-1359); URINE WBC 4.1 /uL (0-25.8)
[2020-06-19] MEDS ORDERED: HYDROmorphone HCL CARPU-JECT 2 MG/1 ML DISP.SYRIN IVPB ONE (15:01)
[2020-06-19] MEDS ORDERED: CEFTRIAXONE 1,000 MG in DEXTROSE 5%-WATER - 50 ML IVPB ONE (15:04)
[2020-06-19] MEDS ORDERED: HYDROmorphone HCl 2 MG/ML VIAL ONE (15:20)
[2020-06-19] MEDS ORDERED: CEFTRIAXONE 1 GM/50 ML BAG ONE (15:20)
[2020-06-19] MEDS ORDERED: DOCUSATE SODIUM 100 MG CAPSULE (FP) PO PRN ×2 (15:32→18:25)
[2020-06-19] MEDS ORDERED: HYDROmorphone HCl 2 MG/ML VIAL IVPUSH PRN ×2 (15:34→18:25)
[2020-06-19] MEDS ORDERED: SODIUM CHLORIDE 0.45%/POT 20 MEQ/1,000 ML INFUS.BAG IV SCH (15:45)
[2020-06-19] MEDS ORDERED: GENTAMICIN SO4 80 MG/2 ML VIAL IVPB ONE (16:55)
[2020-06-19] MEDS ORDERED: GENTAMICIN SO4 80 MG/2 ML VIAL ONE (16:56)
[2020-06-19] MEDS ORDERED: ACETAMINOPHEN WITH CODEINE 300MG/30MG TABLET PO PRN (17:31)
[2020-06-19] MEDS ORDERED: ACETAMINOPHEN 325 MG TABLET (FP) PO PRN (18:49)
[2020-06-19] MEDS ORDERED: ONDANSETRON 4 MG/2 ML VIAL IVPUSH PRN (18:49)
[2020-06-19] MEDS ORDERED: LACTATED RINGERS SOLUTION 1,000 ML IV SCH (19:00)
[2020-06-19] MEDS: SODIUM CHLORIDE 0.45%/POT 20 MEQ/1,000 ML INFUS.BAG IV SCH (21:49)
[2020-06-19] MEDS: METOPROLOL TARTRATE 50 MG TABLET (FP) PO SCH (21:49)
[2020-06-19] MEDS: ATORVASTATIN CA 80 MG TABLET (FP) PO SCH (21:49)
[2020-06-19] MEDS ORDERED: ATORVASTATIN CA 80 MG TABLET (FP) PO SCH (22:00)
[2020-06-19] MEDS ORDERED: METOPROLOL TARTRATE 50 MG TABLET (FP) PO SCH (22:00)
[2020-06-19 23:56] VITALS: BMI 24.3
[2020-06-20 06:32] LABS: BASO % 0.4 % (0-2.0); EOS % 0.2 % (0-4.5); HEMATOCRIT 47.3 % (35.4-49); HEMOGLOBIN 15.3 GM/dL (11.7-16.9); LYMPH % 13.8 % (8-40); MCH 26.8 pg (25.7-33.7); MCHC 32.4 g/dl (32.0-35.9); MEAN CELL VOLUME 82.9 fl (80-96); MEAN PLT VOLUME 8.8 fl (7.5-11.1); MONO % 9.8 % (3.8-10.2); NEUT % 75.8 % (42.8-82.8); PLATELET COUNT 166 K/MM3 (134-434); RBC 5.71 M/mm3 (4.00-5.60); RDW 15.3 % (11.9-15.9); WHITE BLOOD COUNT 11.9 K/mm3 (4.0-10.0)
[2020-06-20 06:40] LABS: INR 1.12 (0.83-1.09); PROTHROMBIN TIME (PATIENT) 13.5 SEC (9.7-13.0)
[2020-06-20 07:01] LABS: POTASSIUM 3.8 mmol/L (3.5-5.1)
[2020-06-20 07:03] LABS: CALCIUM 8.6 mg/dL (8.5-10.1)
[2020-06-20 07:04] LABS: ALBUMIN 2.8 g/dl (3.4-5.0); BLOOD UREA NITROGEN 16.9 mg/dL (7-18); MAGNESIUM 1.9 mg/dL (1.8-2.4)
[2020-06-20 07:07] LABS: CREATININE 0.6 mg/dL (0.55-1.3)
[2020-06-20 07:08] LABS: BILIRUBIN,TOTAL 0.6 mg/dL (0.2-1)
[2020-06-20 07:09] LABS: TOT PROT 5.6 g/dl (6.4-8.2)
[2020-06-20] MEDS ORDERED: amLODIPine BESYLATE 5 MG TABLET (FP) PO SCH (10:00)
[2020-06-20] MEDS ORDERED: ENOXAPARIN NA (PORCINE) 80 MG/0.8 ML DISP.SYRIN SQ SCH (10:00)
[2020-06-20] MEDS ORDERED: CEFTRIAXONE 1 GM in DEXTROSE 5%-WATER - 50 ML IVPB SCH (10:00)
[2020-06-20] MEDS ORDERED: NICOTINE 14 MG/24 HOURS TOPICAL PATCH TD SCH (10:00)
[2020-06-20] MEDS ORDERED: PANTOPRAZOLE 40 MG TABLET PO SCH (10:00)
[2020-06-20] MEDS ORDERED: DEXTROSE 5%-WATER - 50 ML IVPB ONE (10:24)
[2020-06-20] MEDS ORDERED: cefTRIAXone SODIUM 1 GM VIAL ONE (10:24)
[2020-06-20] MEDS: METOPROLOL TARTRATE 50 MG TABLET (FP) PO SCH ×2 (10:27→21:23)
[2020-06-20] MEDS: PANTOPRAZOLE 40 MG TABLET PO SCH (10:28)
[2020-06-20] MEDS: NICOTINE 14 MG/24 HOURS TOPICAL PATCH TD SCH (10:29)
[2020-06-20] MEDS: ENOXAPARIN NA (PORCINE) 80 MG/0.8 ML DISP.SYRIN SQ SCH ×2 (10:29→21:23)
[2020-06-20] MEDS: CEFTRIAXONE 1 GM in DEXTROSE 5%-WATER - 50 ML IVPB SCH (10:30)
[2020-06-20] MEDS: amLODIPine BESYLATE 5 MG TABLET (FP) PO SCH (10:35)
[2020-06-20] MEDS: ATORVASTATIN CA 80 MG TABLET (FP) PO SCH (21:23)
[2020-06-21] MEDS: SODIUM CHLORIDE 0.45%/POT 20 MEQ/1,000 ML INFUS.BAG IV SCH (05:30)
[2020-06-21 08:02] LABS: HEMATOCRIT 48.3 % (35.4-49); HEMOGLOBIN 16.2 GM/dL (11.7-16.9); MCH 28.1 pg (25.7-33.7); MCHC 33.5 g/dl (32.0-35.9); MEAN CELL VOLUME 83.9 fl (80-96); MEAN PLT VOLUME 9.6 fl (7.5-11.1); PLATELET COUNT 160 K/MM3 (134-434); RBC 5.76 M/mm3 (4.00-5.60); RDW 15.3 % (11.9-15.9); WHITE BLOOD COUNT 8.2 K/mm3 (4.0-10.0)
[2020-06-21 08:18] LABS: POTASSIUM 3.7 mmol/L (3.5-5.1)
[2020-06-21 08:19] LABS: CALCIUM 8.5 mg/dL (8.5-10.1)
[2020-06-21 08:20] LABS: BLOOD UREA NITROGEN 11.8 mg/dL (7-18)
[2020-06-21 08:23] LABS: CREATININE 0.5 mg/dL (0.55-1.3)
[2020-06-21] MEDS ORDERED: cefTRIAXone SODIUM 1 GM VIAL ONE (09:30)
[2020-06-21] MEDS ORDERED: DEXTROSE 5%-WATER - 50 ML IVPB ONE (09:31)
[2020-06-21] MEDS: CEFTRIAXONE 1 GM in DEXTROSE 5%-WATER - 50 ML IVPB SCH (10:13)
[2020-06-21] MEDS: METOPROLOL TARTRATE 50 MG TABLET (FP) PO SCH (10:13)
[2020-06-21] MEDS: PANTOPRAZOLE 40 MG TABLET PO SCH (10:13)
[2020-06-21] MEDS: amLODIPine BESYLATE 5 MG TABLET (FP) PO SCH (10:13)
[2020-06-21] MEDS: NICOTINE 14 MG/24 HOURS TOPICAL PATCH TD SCH (10:14)
[2020-06-21 14:40] VITALS: BP 142/63; PULSE 68; TEMP 98.5
[2020-07-02 13:59] LABS: CA OXALATE MONOHYDR. 70; WEIGHT 11 mg
== END 2020-06-21 11:00 | disposition home or self-care (01) | DRG 669 ==
LOC: JER 10:02 → JERBED 16:04 → J7W 20:52
PROVIDERS: ADMIT Family Medicine; ATTEND Family Medicine
PROC: BT1FZZZ Fluoroscopy of Left Kidney, Ureter and Bladder (ICD-10-PCS; 2020-06-19)
PROC: 0TC78ZZ Extirpation of Matter from Left Ureter, Via Natural or Artificial Opening Endoscopic (ICD-10-PCS; principal; 2020-06-19 17:00)
DX: N13.6 Pyonephrosis (principal); I50.32 Chronic diastolic (congestive) heart failure; E78.5 Hyperlipidemia, unspecified; I11.0 Hypertensive heart disease with heart failure; N17.9 Acute kidney failure, unspecified; I25.10 Atherosclerotic heart disease of native coronary artery without angina pectoris; F17.210 Nicotine dependence, cigarettes, uncomplicated; I65.21 Occlusion and stenosis of right carotid artery; J44.9 Chronic obstructive pulmonary disease, unspecified; R91.1 Solitary pulmonary nodule; E11.9 Type 2 diabetes mellitus without complications; Z86.73 Personal history of transient ischemic attack (TIA), and cerebral infarction without residual deficits; Z95.1 Presence of aortocoronary bypass graft
CPT/HCPCS: 36415; 74176-TC; 76000-TC-FY; 80048; 80053; 81003; 82360; 83690; 83735; 84100; 85025; 85027; 85610; 85730; 87077; 87086; 88300-TC; 93005; 93010; 94760; 99285-25; C9803; J0131; J3480; U0003

== ENCOUNTER 2025-03-20 12:43 | Inpatient (IN) | payer OTHER ==
[2025-03-20] MEDS ORDERED: ALBUTEROL SO4 2.5/IPRATROPIUM 0.5 INH SOL 3 ML VIAL.NEB. NEB ONE (12:53)
[2025-03-20 13:27] LABS: ABSOLUTE IMMATURE GRANULOCYTES 0.02 x10^3/uL (0.0-0.031); BASOPHILS # 0.02 x10^3/uL (0.01-0.08); EOSINOPHIL % 2.5 % (0.8-7.0); EOSINOPHILS # 0.17 x10^3/uL (0.04-0.54); MCHC 30.2 g/dl (32.3-36.5); MEAN CELL VOLUME 89.2 fl (79.0-92.2); MEAN PLT VOLUME 10.6 fl (9.4-12.4); MONOCYTE # 0.49 x10^3/uL (0.30-0.82); MONOCYTE % 7.2 % (5.3-12.2); RDW 15.4 % (12.2-16.6)
[2025-03-20 13:31] LABS: BG HCT 54.0 % (35.4-49); VENOUS BASE EXCESS 4.5 mmol/L (-2-2); VENOUS O2 SATURATION 50.9 % (70-80); VENOUS PH 7.219 (7.310-7.410)
[2025-03-20 13:34] LABS: INR 1.07 (0.83-1.09); PROTHROMBIN TIME (PATIENT) 11.7 SEC (9.7-13.0)
[2025-03-20 13:37] LABS: VENOUS PCO2 93.0 mmHg (38-52)
[2025-03-20 13:37] LABS: ACTIVATED PTT 31.8 SECONDS (25.2-36.5)
[2025-03-20] MEDS ORDERED: methylPREDNISolone NA SUCC 125 MG/2 ML VIAL ONE (13:38)
[2025-03-20] MEDS ORDERED: FUROSEMIDE 40 MG/4 ML INJECTABLE VIAL ONE (13:38)
[2025-03-20 13:53] LABS: GLUCOSE,RANDOM 158.0 mg/dL (74-106); TOT PROT 7.1 g/dl (6.4-8.2)
[2025-03-20 13:54] LABS: CO2 34.0 mmol/L (21-32)
[2025-03-20 13:55] LABS: ALK PHOS 107.0 U/L (40-150)
[2025-03-20] MEDS: methylPREDNISolone NA SUCC 125 MG/2 ML VIAL IVPUSH ONE (13:56)
[2025-03-20] MEDS: FUROSEMIDE 40 MG/4 ML INJECTABLE VIAL IVPUSH ONE (13:56)
[2025-03-20] MEDS: ALBUTEROL SO4 2.5/IPRATROPIUM 0.5 INH SOL 3 ML VIAL.NEB. NEB ONE (13:57)
[2025-03-20 13:58] LABS: CREATININE 0.62 mg/dL (0.55-1.3); SGOT/AST 25.0 U/L (5-34); SGPT/ALT 42.0 U/L (0-55)
[2025-03-20] MEDS ORDERED: LOSARTAN POTASSIUM 50 MG TABLET ONE (16:59)
[2025-03-20] MEDS ORDERED: methylPREDNISolone NA SUCC 40 MG/1 ML VIAL ONE (16:59)
[2025-03-20] MEDS: LOSARTAN POTASSIUM 50 MG TABLET PO SCH (17:34)
[2025-03-20] MEDS: methylPREDNISolone NA SUCC 40 MG/1 ML VIAL IVPUSH SCH (18:04)
[2025-03-20 20:11] LABS: N-TERMINAL BNP 1153.0 pg/ml (5-125)
[2025-03-20] MEDS: ALBUTEROL SO4 2.5/IPRATROPIUM 0.5 INH SOL 3 ML VIAL.NEB. NEB SCH (21:37)
[2025-03-20] MEDS: METOPROLOL TARTRATE 50 MG TABLET (FP) PO SCH (22:30)
[2025-03-20] MEDS: HEPARIN NA (PORCINE) 5,000 UNITS/ML 1ML VIAL SQ SCH (22:30)
[2025-03-20] MEDS: DOCUSATE SODIUM 100 MG CAPSULE (FP) PO SCH (22:30)
[2025-03-21 02:59] VITALS: BMI 23.9
[2025-03-21] MEDS: FUROSEMIDE 40 MG/4 ML INJECTABLE VIAL IVPUSH SCH (05:57)
[2025-03-21 07:06] LABS: ABSOLUTE IMMATURE GRANULOCYTES 0.01 x10^3/uL (0.0-0.031); BASOPHILS # 0.01 x10^3/uL (0.01-0.08); EOSINOPHIL % 0.0 % (0.8-7.0); EOSINOPHILS # 0.00 x10^3/uL (0.04-0.54); MCHC 30.1 g/dl (32.3-36.5); MEAN CELL VOLUME 87.8 fl (79.0-92.2); MEAN PLT VOLUME 10.6 fl (9.4-12.4); MONOCYTE # 0.15 x10^3/uL (0.30-0.82); MONOCYTE % 3.0 % (5.3-12.2); RDW 15.1 % (12.2-16.6)
[2025-03-21 08:06] LABS: GLUCOSE,RANDOM 177.0 mg/dL (74-106); TOT PROT 6.4 g/dl (6.4-8.2)
[2025-03-21 08:07] LABS: CO2 36.0 mmol/L (21-32)
[2025-03-21 08:09] LABS: ALK PHOS 89.0 U/L (40-150)
[2025-03-21 08:12] LABS: CREATININE 0.6 mg/dL (0.55-1.3); LDL CHOLESTEROL (ONLY SJRH) 75.0 mg/dL (5-100); SGOT/AST 16.0 U/L (5-34); SGPT/ALT 33.0 U/L (0-55)
[2025-03-21] MEDS: PANTOPRAZOLE 40 MG TABLET PO SCH (10:02)
[2025-03-21] MEDS: ISOSORBIDE MONONITRATE 60 MG TAB.SR.24H (FP) PO SCH (10:03)
[2025-03-21] MEDS: CLOPIDOGREL BISULFATE 75 MG TABLET (FP) PO SCH (10:03)
[2025-03-21] MEDS: ATORVASTATIN CA 80 MG TABLET (FP) PO SCH (22:00)
[2025-03-22] MEDS: methylPREDNISolone NA SUCC 40 MG/1 ML VIAL IVPUSH SCH (12:25)
[2025-03-23 07:43] LABS: ABSOLUTE IMMATURE GRANULOCYTES 0.03 x10^3/uL (0.0-0.031); BASOPHILS # 0.00 x10^3/uL (0.01-0.08); EOSINOPHIL % 0.1 % (0.8-7.0); EOSINOPHILS # 0.01 x10^3/uL (0.04-0.54); MCHC 30.6 g/dl (32.3-36.5); MEAN CELL VOLUME 86.4 fl (79.0-92.2); MEAN PLT VOLUME 11.0 fl (9.4-12.4); MONOCYTE # 0.68 x10^3/uL (0.30-0.82); MONOCYTE % 8.3 % (5.3-12.2); RDW 14.7 % (12.2-16.6)
[2025-03-23 09:02] LABS: GLUCOSE,RANDOM 305.0 mg/dL (74-106); TOT PROT 6.4 g/dl (6.4-8.2)
[2025-03-23 09:03] LABS: CO2 38.0 mmol/L (21-32)
[2025-03-23 09:05] LABS: ALK PHOS 73.0 U/L (40-150)
[2025-03-23 09:08] LABS: CREATININE 0.66 mg/dL (0.55-1.3); SGOT/AST 12.0 U/L (5-34); SGPT/ALT 25.0 U/L (0-55)
[2025-03-23] MEDS: SPIRONOLACTONE 25 MG TABLET PO SCH (10:32)
[2025-03-24] MEDS ORDERED: LOSARTAN POTASSIUM 50 MG TABLET PO SCH (08:06)
[2025-03-24] MEDS: methylPREDNISolone NA SUCC 40 MG/1 ML VIAL IVPUSH SCH (10:06)
[2025-03-24] MEDS: SPIRONOLACTONE 25 MG TABLET PO SCH (10:08)
[2025-03-24 13:28] VITALS: BP 138/49; PULSE 69; RESP 14; TEMP 97.5
== END 2025-03-24 15:48 | disposition home or self-care (01) | DRG 291 ==
LOC: JER 12:43 → JERBED 14:57 → J4S 21:39
PROVIDERS: ADMIT Family Medicine; ATTEND Family Medicine
DX: I11.0 Hypertensive heart disease with heart failure (principal); I50.33 Acute on chronic diastolic (congestive) heart failure; J96.01 Acute respiratory failure with hypoxia; J96.02 Acute respiratory failure with hypercapnia; I25.10 Atherosclerotic heart disease of native coronary artery without angina pectoris; Z99.81 Dependence on supplemental oxygen; J44.9 Chronic obstructive pulmonary disease, unspecified; Z95.1 Presence of aortocoronary bypass graft; Z86.73 Personal history of transient ischemic attack (TIA), and cerebral infarction without residual deficits; I27.20 Pulmonary hypertension, unspecified
CPT/HCPCS: 36415; 71045-TC-FY; 71250-TC; 76705-TC; 80053; 80061; 82803; 83036; 83605; 83735; 83880; 84439; 84443; 84484; 85025; 85610; 85730; 86850; 86900; 86901; 87637-QW; 93005; 93010; 93306-TC; 93970-TC; 94640; 94660; 94761; 99291